=== PATIENT | male | born 1935 | race Caucasian/White ===

== ENCOUNTER 2017-01-06 18:19 | Outpatient (CLI) | payer OTHER ==
[2017-01-06 22:13] VITALS: BMI 29.7
== END 2017-01-06 18:20 | disposition home or self-care (01) ==
LOC: AMBL 18:19
PROVIDERS: ATTEND Internal Medicine Geriatric Medicine
DX: S09.90XA Unspecified injury of head, initial encounter (principal); S01.01XA Laceration without foreign body of scalp, initial encounter; R41.82 Altered mental status, unspecified; I44.0 Atrioventricular block, first degree; R40.2411 Glasgow coma scale score 13-15, in the field [EMT or ambulance]; W19.XXXA Unspecified fall, initial encounter; Z79.01 Long term (current) use of anticoagulants

== ENCOUNTER 2017-01-06 18:28 | Observation (INO) | payer OTHER ==
[2017-01-06] MEDS ORDERED: SODIUM CHLORIDE 1,000 ML IV STA (18:36)
[2017-01-06] MEDS ORDERED: ZOFRAN 4 MG/2 ML IVP STA (19:06)
--- NOTE | 2017-01-06 19:11 | ED.PDOC ---
General ED Provider: Dr. KRIS CAMPBELL Chief Complaint: Fall Stated Complaint: Kaylieeinjudith is an 81 year old female who comes to the after sustaining a fall at home hitting his head does not recall any of the Evens of fall. Sustained a occipital laceration with some bleeding. Denies any other pain. Time Seen by Physician: 18:45 Mode of Arrival: Ambulance Information Source: Patient, Family Exam Limitations: No limitations Primary Care Provider: MICHELE DOWELL Nursing and Triage Documentation Reviewed and Agree: Yes Trauma/Injury Complaint Exam - Head Injury Complaint/Exam Location of Pain: Reports: Scalp Mechanism of Injury: Reports: Trauma Onset/Duration: just prior to arrival Symptoms Are: Still present Initial Severity: Moderate Current Severity: Moderate Character: Reports: Dull Aggravating: Reports: None Alleviating: Reports: None Associated Signs and Symptoms: Reports: Neck pain Loss of Consciousness: Unknown SDH Risk Factors: Present: Male, Elderly Review of Systems - Review Of Systems Constitutional: Reports: No symptoms Eyes: Reports: No symptoms Ears, Nose, Mouth, Throat: Reports: No symptoms Respiratory: Reports: No symptoms Cardiac: Reports: Lightheadedness, Syncope GI: Reports: No symptoms : Reports: No symptoms Musculoskeletal: Reports: Neck pain Skin: Reports: Bruising Neurological: Reports: Anxiety, Other (Memory loss ) Endocrine: Reports: No symptoms Hematologic/Lymphatic: Reports: No symptoms All Other Systems: Reviewed and Negative Past Medical History - Past Medical History Previously Healthy: Yes Endocrine: Reports: None Cardiovascular: Reports: CAD, NM, Hypertension Respiratory: Reports: None Hematological: Reports: None Gastrointestinal: Reports: None Genitourinary: Reports: None Neuro/Psych: Reports: None Musculoskeletal: Reports: None Cancer: Reports: None - Surgical History General Surgical History: Reports: CABG, Other - Family History Family History: Reports: Unknown - Social History Smoking Status: Former smoker Hx Substance Use: No Alcohol Screening: Occasionally Physical Exam - Physical Exam Appearance: Ill-appearing Psychiatric: Anxious Interpretation - Radiology Interpretation Radiology Interpretation By: Radiologist Radiology Results: Negative Exam Interpreted: CT Scan (head, chest, c spine abdomen and pelvis. ) Procedures - Laceration/Wound Repair occipital scalp Wound Description: Irregular, Stellate Wound Length (cm): 3 Wound Width: 0.5 Wound Depth: 0.5 Wound Explored: Clean Wound Irrigated: No Wound Prep: Betadine, Scrub Anesthesia: Lidocaine Wound Margins: Revised Wound Repaired With: Sutures Suture Size and Type: 3.0 Ethlone Number of Sutures: 6 (running ) Layer Closure?: No Sterile Dressing Applied?: Yes Splint Applied?: No Sling Applied?: No Progress: Tolerated well Critical Care Note - Critical Care Note Total Time (mins): 30 Course - Course Hematology/Chemistry: 01/07/17 03:04 01/07/17 03:04 Orders, Labs, Meds: Lab Review 01/06/17 01/06/17 19:24 19:25 WBC 10.51 H RBC 4.35 L Hgb 13.1 L Hct 39.4 L MCV 90.6 MCH 30.1 MCHC 33.2 RDW Coeff of Todd 13.0 Plt Count 213 Immature Gran % (Auto) 0.4 Neut % (Auto) 59.8 Lymph % (Auto) 23.2 [place] % (Auto) 9.0 Eos % (Auto) 6.9 Baso % (Auto) 0.7 Immature Gran # (Auto) 0.0 Neut # 6.3 Lymph # 2.4 [place] # 1.0 Eos # 0.7 Baso # 0.1 PT 26.9 H INR 2.61 Sodium 137 Potassium 4.2 Chloride 99 Carbon Dioxide 29 Anion Gap 13.2 BUN 24 H Creatinine 1.20 H Estimated GFR (MDRD) 58.00 BUN/Creatinine Ratio 20.00 Glucose 100 Calcium 9.6 Total Bilirubin 0.37 AST 14 L ALT 7 L Alkaline Phosphatase 78 Total Creatine Kinase 52 Total Protein 6.9 Albumin 3.9 Globulin 3.0 Albumin/Globulin Ratio 1.30 Orders Category Date Time Status PLACE PATIENT OBSERVATION .TO [facility] (MONITORED BED ADMISSION 01/06/17 20: 42 Active ) ACTIVITY .Early Mobilization for VTE Prevention CARE 01/06/17 20:44 Completed INCISION/WOUND CARE DAILY CARE 01/06/17 20:42 Active INTAKE & OUTPUT Q8HR CARE 01/06/17 20:42 Completed TELEMETRY MONITORING TELE CARE 01/06/17 20:43 Active VITAL SIGNS Q4HR CARE 01/06/17 20:43 Completed CARDIAC DIET DIETARY 01/06/17 Breakfast Ordered BASIC METABOLIC PANEL DAILY@0600 LAB 01/07/17 03:04 Completed BASIC METABOLIC PANEL DAILY@0600 LAB 01/08/17 06:00 Ordered BASIC METABOLIC PANEL DAILY@0600 LAB 01/09/17 06:00 Ordered BASIC METABOLIC PANEL DAILY@0600 LAB 01/10/17 06:00 Ordered BASIC METABOLIC PANEL DAILY@0600 LAB 01/11/17 06:00 Ordered BASIC METABOLIC PANEL DAILY@0600 LAB 01/12/17 06:00 Ordered BASIC METABOLIC PANEL DAILY@0600 LAB 01/13/17 06:00 Ordered BASIC METABOLIC PANEL DAILY@0600 LAB 01/14/17 06:00 Ordered BASIC METABOLIC PANEL DAILY@0600 LAB 01/15/17 06:00 Ordered BASIC METABOLIC PANEL DAILY@0600 LAB 01/16/17 06:00 Ordered BASIC METABOLIC PANEL DAILY@0600 LAB 01/17/17 06:00 Ordered BASIC METABOLIC PANEL DAILY@0600 LAB 01/18/17 06:00 Ordered BASIC METABOLIC PANEL DAILY@0600 LAB 01/19/17 06:00 Ordered BASIC METABOLIC PANEL DAILY@0600 LAB 01/20/17 06:00 Ordered BASIC METABOLIC PANEL DAILY@0600 LAB 01/21/17 06:00 Ordered BASIC METABOLIC PANEL DAILY@0600 LAB 01/22/17 06:00 Ordered BASIC METABOLIC PANEL DAILY@0600 LAB 01/23/17 06:00 Ordered BASIC METABOLIC PANEL DAILY@0600 LAB 01/24/17 06:00 Ordered BASIC METABOLIC PANEL DAILY@0600 LAB 01/25/17 06:00 Ordered BASIC METABOLIC PANEL DAILY@0600 LAB 01/26/17 06:00 Ordered CBC W/ AUTO DIFF DAILY@06 LAB 01/07/17 03:04 Completed CBC W/ AUTO DIFF DAILY@06 LAB 01/08/17 06:00 Ordered CBC W/ AUTO DIFF DAILY@0600 LAB 01/09/17 06:00 Ordered CBC W/ AUTO DIFF DAILY@06 LAB 01/10/17 06:00 Ordered CBC W/ AUTO DIFF DAILY@06 LAB 01/11/17 06:00 Ordered CBC W/ AUTO DIFF DAILY@0600 LAB 01/12/17 06:00 Ordered CBC W/ AUTO DIFF DAILY@0600 LAB 01/13/17 06:00 Ordered CBC W/ AUTO DIFF DAILY@0600 LAB 01/14/17 06:00 Ordered CBC W/ AUTO DIFF DAILY@0600 LAB 01/15/17 06:00 Ordered CBC W/ AUTO DIFF DAILY@0600 LAB 01/16/17 06:00 Ordered CBC W/ AUTO DIFF DAILY@0600 LAB 01/17/17 06:00 Ordered CBC W/ AUTO DIFF DAILY@0600 LAB 01/18/17 06:00 Ordered CBC W/ AUTO DIFF DAILY@0600 LAB 01/19/17 06:00 Ordered CBC W/ AUTO DIFF DAILY@0600 LAB 01/20/17 06:00 Ordered CBC W/ AUTO DIFF DAILY@0600 LAB 01/21/17 06:00 Ordered CBC W/ AUTO DIFF DAILY@0600 LAB 01/22/17 06:00 Ordered CBC W/ AUTO DIFF DAILY@0600 LAB 01/23/17 06:00 Ordered CBC W/ AUTO DIFF DAILY@0600 LAB 01/24/17 06:00 Ordered CBC W/ AUTO DIFF DAILY@0600 LAB 01/25/17 06:00 Ordered CBC W/ AUTO DIFF DAILY@0600 LAB 01/26/17 06:00 Ordered CBC W/ AUTO DIFF Stat LAB 01/06/17 19:24 Completed COMPREHENSIVE METABOLIC PANEL Stat LAB 01/06/17 19:24 Completed CREATINE KINASE Q8H LAB 01/07/17 03:04 Completed CREATINE KINASE Q8H LAB 01/07/17 11:00 Ordered CREATINE KINASE Stat LAB 01/06/17 19:24 Completed PT WITH INR Stat LAB 01/06/17 19:25 Completed TROPONIN I Q8H LAB 01/07/17 03:04 Completed TROPONIN I Q8H LAB 01/07/17 11:00 Ordered Diphth,Pertuss(Acell),Tet Vac [Boostrix] MEDS 01/06/17 19:48 Discontinued 0.5 ml IM .ONCE ONE Lidocaine HCl/Pf [Lidocaine 1 % Amp 5 ml (Sutures)] MEDS 01/06/17 19:53 Discontinued 5 ml .ROUTE .STK-MED ONE Lidocaine HCl/Pf [Lidocaine 1 % Amp 5 ml (Sutures)] MEDS 01/06/17 19:48 Discontinued 5 ml SQ ONCE STA Morphine Sulfate [Morphine 2 mg/ml Syringe] MEDS 01/06/17 20:42 Discontinued 2 mg IVP Q4H PRN Ondansetron HCl/Pf [Zofran 4 mg/2 ml] MEDS 01/06/17 19:06 Discontinued 4 mg IVP ONCE STA Ondansetron HCl/Pf [Zofran 4 mg/2 ml] MEDS 01/06/17 20:42 Active 4 mg IVP Q6H PRN Potassium Chloride in 0.9%NaCl [Sodium Chloride 0.9%- MEDS 01/06/17 21:00 Active KCl 20 Meq] 1,000 ml IV 125 mls/hr Sodium Chloride 0.9% [Sodium Chloride] 1,000 ml MEDS 01/06/17 18:36 Discontinued IV BOLUS RESUSCITATION STATUS Routine OTHERS 01/06/17 20:[address] ABD/PEL WO RENAL STONE PROT Stat RADS 01/06/17 18:[address] CERVICAL SPINE W/O CONTRAST Stat RADS 01/06/17 18:[address] CHEST W/O CONTRAST Stat RADS 01/06/17 18:[address] HEAD W/O CONTRAST Stat RADS 01/06/17 18:35 Completed PT CONSULT Routine THERAPIES 01/06/17 Ordered Medications Generic Name Dose Route Start Last Admin Trade Name Freq PRN Reason Stop Dose Admin Potassium Chloride/Sodium Chloride 1,000 mls @ 125 mls/hr 01/06/17 21:00 07:53 Sodium Chloride 0.9%-Kcl 20 Meq IV 125 mls/hr .Q8H SHANITA Administration Levothyroxine Sodium 75 mcg 01/08/17 06:30 Synthroid PO QDAC [facility] Meclizine HCl 25 mg 01/06/17 22:49 Antivert PO DAILY PRN Dizziness Non-Formulary Medication 100 mg 01/07/17 09:00 Losartan Potassium [Cozaar] PO DAILY [facility] Non-Formulary Medication 1 each 01/07/17 09:00 Vit C/E/Zn/Coppr/Lutein/Zeaxan [Preservision Areds 2 Softgel] PO DAILY [facility] Ondansetron HCl 4 mg 01/06/17 20:42 Zofran 4 Mg/2 Ml IVP Q6H PRN Nausea / Vomiting Tamsulosin HCl 0.4 mg 01/07/17 09:00 Flomax PO DAILY SHANITA Discontinued Medications Generic Name Dose Route Start Last Admin Trade Name Freq PRN Reason Stop Dose Admin Acetaminophen 1,000 mg 01/06/17 21:09 Tylenol PO Q6H PRN pain and fever Aspirin 81 mg 01/07/17 08:00 Aspirin Ec PO DAILYWM [facility] Colesevelam HCl 1,250 mg 01/07/17 09:00 Welchol PO BID SHANITA Diphtheria/Pertussis/Tetanus Vacc 0.5 ml 01/06/17 19:48 01/06/17 19:57 Boostrix IM 01/06/17 19:49 0.5 ml .ONCE ONE Administration Guaifenesin ml 01/06/17 21:09 Robitussin Sugar-Free PO Q4-6H PRN cough Sodium Chloride 1,000 mls @ 1,000 mls/hr 01/06/17 18:36 01/06/17 19:29 Sodium Chloride IV 01/06/17 19:35 1,000 mls/hr BOLUS STA Administration Lidocaine HCl 5 ml 01/06/17 19:48 01/06/17 19:58 Lidocaine 1 % Amp 5 Ml (Sutures) SQ 01/06/17 19:49 5 ml ONCE STA Administration Morphine Sulfate 2 mg 01/06/17 20:42 Morphine 2 Mg/Ml Syringe IVP Q4H PRN Severe Pain Non-Formulary Medication 75 mcg 01/07/17 09:00 Levothyroxine Sodium [Tirosint] PO DAILY SHANITA Non-Formulary Medication 50 mg 01/07/17 09:00 Metoprolol Tartrate [Metoprolol Tartrate] PO BID SHANITA Non-Formulary Medication 4 mg 01/07/17 09:00 Warfarin Sodium [Coumadin] PO DAILY SHANITA Non-Formulary Medication 75 mcg 01/07/17 06:30 01/07/17 05:53 Levothyroxine Sodium [Tirosint] PO 75 mcg QDAC SHANITA Administration Ondansetron HCl 4 mg 01/06/17 19:06 01/06/17 19:28 Zofran 4 Mg/2 Ml IVP 01/06/17 19:07 4 mg ONCE STA Administration Saccharomyces Boulardii 250 mg 01/07/17 09:00 Florastor PO BID SHANITA Simvastatin mg 01/07/17 09:00 Zocor PO DAILY SHANITA Tramadol HCl 50 mg 01/06/17 21:09 Ultram PO Q4-6H PRN moderate pain Vital Signs: Temp Pulse Resp BP Pulse Ox 01/06/17 20:40 68 20 164/80 H 95 01/06/17 19:20 97 F L 67 20 168/80 H 5 L Departure - Departure Time of Disposition: 21:20 Disposition: PLACED OBSERVATION Discharge Problem: Falls, Dizziness, Weakness Laceration of head Qualifiers: Encounter type: initial encounter Location of open wound of head: scalp Foreign body presence: without foreign body Qualifier Code: (S01.01XA) Laceration without foreign body of scalp, initial encounter Condition: Stable Pt referred to PMD for follow-up: No (admitted ) Allergies/Adverse Reactions: Allergies TAPE Adverse Reaction (Uncoded 04/03/14 16:55) Home Medications: Ambulatory Orders Acetaminophen [Tylenol] 1,000 mg PO Q6H PRN 04/03/14 Aspirin [Aspirin EC] 81 mg PO DAILYWM 04/03/14 Colesevelam HCl [Welchol] 1,250 mg PO BID 04/03/14 Levothyroxine Sodium [Tirosint] 75 mcg PO DAILY 04/03/14 Losartan Potassium [Cozaar] 100 mg PO DAILY 04/03/14 Metoprolol Tartrate 50 mg PO BID 04/03/14 Tramadol HCl [Ultram] 50 mg PO Q4-6H PRN 04/03/14 Vit C/E/Zn/Coppr/Lutein/Zeaxan [Preservision Areds 2 Softgel] 1 each PO DAILY Warfarin Sodium [Coumadin] 4 mg PO DAILY 04/03/14 Saccharomyces Boulardii [Florastor] 250 mg PO BID #60 capsule 04/07/14 Guaifenesin 200 mg PO Q4-6H PRN 11/18/15 Simvastatin 1 tab PO DAILY 11/18/15 Tamsulosin HCl [Flomax] 1 tab PO DAILY 11/18/15 Bumetanide 1 mg PO EVERY OTHER DAY 01/07/17 Dimenhydrinate 50 mg PO DAILY PRN 01/07/17 Furosemide [Lasix] 20 mg PO DAILY 01/07/17 Potassium Chloride [K-Dur] 10 meq PO DAILY 01/07/17
[2017-01-06 19:27] LABS: BASOPHILS # (AUTO) 0.1 K/uL (0-0.2); BASOPHILS % (AUTO) 0.7 % (0.0-3.0); EOSINOPHILS # (AUTO) 0.7 K/ul (0.0-0.7); EOSINOPHILS % (AUTO) 6.9 % (0.0-7.0); HEMATOCRIT 39.4 % (42.0-52.0); HEMOGLOBIN 13.1 g/dl (14.0-18.0); IMMATURE GRANULOCYTE % (AUTO) 0.4 % (0.0-5.0); LYMPHOCYTES # (AUTO) 2.4 K/uL (0.60-3.4); LYMPHOCYTES % (AUTO) 23.2 (10.0-50.0); MEAN CORPUSCULAR HEMOGLOBIN 30.1 pg (27.0-31.0); MEAN CORPUSCULAR HGB CONC 33.2 (31.8-35.4); MEAN CORPUSCULAR VOLUME 90.6 fl (80.0-94.0); NEUTROPHILS # (AUTO) 6.3 K/ul (2.0-6.9); NEUTROPHILS % (AUTO) 59.8; PLATELET COUNT 213 10^3/uL (140-440); RED BLOOD COUNT 4.35 10^6/ul (4.70-6.10); WHITE BLOOD COUNT 10.51 K/ul (4.2-10.2)
--- NOTE | 2017-01-06 19:27 | CT ---
EXAM: CT of the head without contrast. HISTORY: Fall with head injury, with loss of consciousness. COMPARISON: 04/03/2014. TECHNIQUE: Noncontrast CT of the head. FINDINGS: No intracranial hemorrhage or mass effect is identified. There is moderate prominence of sulci. The re is mild prominence of the ventricles. Moderate bicerebral white matter hypodensities are again se en. Left thalamic, left basal ganglial/internal capsule,and right cam radiata remore lacunar in farcts are again seen. No large area of huang white matter differentiation loss is seen to suggest an acute infarct. Intracranial calcified atherosclerotic plaque is seen. There is right posterior scalp soft tissue swelling and subcutaneous gas. The calvarium is intact. There is opacification of the visualized portion of the left maxillary sinus. IMPRESSION: No evidence of an acute intracranial process. Right posterior scalp soft tissue swelling and subcutaneous gas. Extensive chronic small vessel ischemic changes. Remote bilateral lacunar infarcts. Atrophy. Opacification of the left maxillary sinus.
--- NOTE | 2017-01-06 19:27 | CT ---
EXAM: CT scan cervical spine HISTORY: Fall COMPARISON: None. FINDINGS: Contiguous axial images obtained through the cervical spine utilizing 2-mm collimation. Sagittal and coronal reconstructions were imaged and reviewed.. There is loss of the normal cervica l lordosis suggesting paraspinal muscle spasm. The vertebral bodies are normal in height and alignm ent. Changes consistent with [facility] are noted at C3 through C7. There is multilevel degenerative dis c disease with multilevel central canal foraminal stenosis. Facet joints are intact. IMPRESSION: Loss normal cervical lordosis suggesting paraspinal muscle spasm. Findings compatible with [facility]. Multilevel central canal and foraminal stenosis.
--- NOTE | 2017-01-06 19:32 | CT ---
EXAM: CT abdomen pelvis without intravenous contrast 01/06/2017. Sagittal and coronal reformatted images obtained HISTORY: Fall. Head injury COMPARISON: 11/18/2015 FINDINGS: Bibasilar atelectasis and/or scarring. The liver shows no acute process. The adrenal gl ands and kidneys show no acute abnormality. The spleen and pancreas show no acute abnormality. There is no bowel obstruction. Aneurysmal dilatation of the infrarenal abdominal aorta. On image 80 this measures 4.2 x 3.8 cm diameter. Unremarkable urinary bladder. No free air or free fluid. There is colonic diverticulosis. No evid ence of diverticulitis. Normal appendix. No acute osseous abnormality. IMPRESSION: 1. Bibasilar atelectasis and/or scarring. 2. No urinary or bowel obstruction and normal appendix. 3. Atherosclerotic vascular disease 4. Aneurysmal dilatation of the infrarenal abdominal aorta. 5. Diverticulosis without diverticulitis. 6. No free air or free fluid. No acute inflammatory or post-traumatic process identified within th e limitation of a noncontrast enhanced examination.
--- NOTE | 2017-01-06 19:32 | CT ---
EXAM: Noncontrast CT of the chest HISTORY: Fall COMPARISON: 11/15/2015 chest x-ray TECHNIQUE: Noncontrast CT of the chest FINDINGS: They are patient motion artifacts. No pneumothorax or pleural effusion is seen. No focal consolidat ion is seen. There is scattered areas of mild atelectasis bilaterally. Evaluation of the mediastinal structures is suboptimal without IV contrast. The heart is borderline enlarged. There is calcification of the mitral valve annulus. Atherosclerotic calcifications are seen including the coronary arteries. There are operative changes of CABG. There is focal ectasia of the aortic arch measuring 3.3 cm. No mediastinal adenopathy is seen. There are degenerative changes of the thoracic spine compatible with DISH. There is severe degenerat braydon changes of the right glenohumeral joint with numerous joint bodies. IMPRESSION: No acute cardiopulmonary findings. Scattered areas of mild atelectasis. Extensive atherosclerosis including coronary arteries. 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 Borderline cardiomegaly. Noncontrast exam. Other chronic and incidental findings as detailed above.
[2017-01-06] MEDS ORDERED: LIDOCAINE 1 % AMP 5 ML (SUTURES) SQ STA (19:48)
[2017-01-06] MEDS ORDERED: BOOSTRIX IM ONE (19:48)
[2017-01-06 19:50] LABS: ALBUMIN 3.9 g/dL (3.4-5.0); ALBUMIN/GLOBULIN RATIO 1.3; ANION GAP 13.2; BILIRUBIN,TOTAL 0.37 mg/dL (0.00-1.20); CALCIUM 9.6 mg/dL (8.2-10.2); CREATININE 1.2 mg/dL (0.60-1.10); POTASSIUM 4.2 mmol/L (3.5-5.1); TOTAL PROTEIN 6.9 g/dL (5.8-8.1)
[2017-01-06] MEDS ORDERED: LIDOCAINE 1 % AMP 5 ML (SUTURES) ONE (19:53)
[2017-01-06] MEDS ORDERED: MORPHINE 2 MG/ML SYRINGE IVP PRN (20:42)
[2017-01-06] MEDS ORDERED: ZOFRAN 4 MG/2 ML IVP PRN (20:42)
[2017-01-06 20:57] LABS: PROTHROMBIN TIME 26.9 SEC (9.3-11.0)
[2017-01-06] MEDS ORDERED: ULTRAM PO PRN (21:09)
[2017-01-06] MEDS ORDERED: ROBITUSSIN SUGAR-FREE PO PRN (21:09)
[2017-01-06] MEDS ORDERED: TYLENOL PO PRN (21:09)
[2017-01-06 22:13] VITALS: BMI 29.7
[2017-01-06] MEDS ORDERED: ANTIVERT PO PRN (22:49)
[2017-01-07] MEDS: SODIUM CHLORIDE 0.9%-KCL 20 MEQ 1,000 ML IV SCH ×2 (00:07→07:53)
[2017-01-07 03:19] LABS: BASOPHILS # (AUTO) 0.1 K/uL (0-0.2); BASOPHILS % (AUTO) 0.4 % (0.0-3.0); EOSINOPHILS # (AUTO) 0.1 K/ul (0.0-0.7); EOSINOPHILS % (AUTO) 0.6 % (0.0-7.0); HEMATOCRIT 36.7 % (42.0-52.0); HEMOGLOBIN 12.6 g/dl (14.0-18.0); IMMATURE GRANULOCYTE % (AUTO) 0.3 % (0.0-5.0); LYMPHOCYTES # (AUTO) 1.6 K/uL (0.60-3.4); LYMPHOCYTES % (AUTO) 13.9 (10.0-50.0); MEAN CORPUSCULAR HEMOGLOBIN 30.8 pg (27.0-31.0); MEAN CORPUSCULAR HGB CONC 34.3 (31.8-35.4); MEAN CORPUSCULAR VOLUME 89.7 fl (80.0-94.0); MONOCYTES % (AUTO) 8.4 (0-10); NEUTROPHILS # (AUTO) 8.9 K/ul (2.0-6.9); NEUTROPHILS % (AUTO) 76.4; PLATELET COUNT 204 10^3/uL (140-440); RED BLOOD COUNT 4.09 10^6/ul (4.70-6.10); WHITE BLOOD COUNT 11.69 K/ul (4.2-10.2)
[2017-01-07 03:22] LABS: ANION GAP 12.5; BUN/CREATININE RATIO 20.4; CALCIUM 9.1 mg/dL (8.2-10.2); CREATININE 0.98 mg/dL (0.60-1.10); POTASSIUM 4.5 mmol/L (3.5-5.1)
[2017-01-07 03:31] LABS: TROPONIN I 0.016 ng/ml (0.0000-0.4000)
[2017-01-07] MEDS ORDERED: NON-FORMULARY MEDICATION (Levothyroxine Sodium [Tirosint] 75 MCG) PO SCH ×44 (06:30→09:00)
[2017-01-07] MEDS ORDERED: ASPIRIN EC PO SCH (08:00)
[2017-01-07] MEDS ORDERED: NON-FORMULARY MEDICATION (Losartan Potassium [Cozaar] 100 MG) PO SCH ×22 (09:00)
[2017-01-07] MEDS ORDERED: POTASSIUM CHLORIDE 10 MEQ PO SCH (09:00)
[2017-01-07] MEDS ORDERED: ANTIVERT PO SCH (09:00)
[2017-01-07] MEDS ORDERED: WELCHOL PO SCH (09:00)
[2017-01-07] MEDS ORDERED: FLOMAX PO SCH (09:00)
[2017-01-07] MEDS ORDERED: ZOCOR PO SCH (09:00)
[2017-01-07] MEDS ORDERED: FLORASTOR PO SCH (09:00)
[2017-01-07] MEDS ORDERED: FUROSEMIDE 20 MG PO SCH (09:00)
[2017-01-07] MEDS ORDERED: NON-FORMULARY MEDICATION (Metoprolol Tartrate [Metoprolol Tartrate] 50 MG) PO SCH (09:00)
[2017-01-07] MEDS ORDERED: NON-FORMULARY MEDICATION (Warfarin Sodium [Coumadin] 4 MG) PO SCH ×22 (09:00)
--- NOTE | 2017-01-07 11:57 | CT ---
Exam: CT brain contrast History: Dizziness Technique: [address] of the brain following intravenous contrast FINDINGS: Compared with 01/06/2017. Again, generalized involutional atrophy, moderate. Again, chr onic microvascular changes white matter tracts, severe. No enhancing masses or abnormal draining ve ins. Atherosclerotic vascular calcifications are present. Right-sided scalp swelling again noted. Dural venous sinuses enhance as expected. Impression: 1. No acute intracranial abnormality. No change from 01/06/2017.
[2017-01-07 14:44] VITALS: BP 127/67; TEMP 97.5
[2017-01-08] MEDS ORDERED: LASIX TAB PO SCH (06:30)
[2017-01-08] MEDS ORDERED: SYNTHROID PO SCH (06:30)
--- NOTE | 2017-01-10 09:35 | PN ---
DATE OF SERVICE: 01/06/17 SUBJECTIVE: This is an 81-year-old male who came to the emergency room after sustaining a fall. He says he tripped and fell while getting out of the car. He does not recall what happened. He had a laceration to the back of the head. He came to the emergency room for further evaluation by the . The patient is on the blood thinner Coumadin. PT/INR was within normal range. BUN was slightly elevated. CT of the head did not show any acute bleed. CT chest is negative other than focal aortic arch ectasia measuring 3.3, borderline cardiomegaly. CT abdomen and pelvis reveals aneursymal dilation, diverticulosis, no free air. At that time, the patient was still dizzy not able to walk, the patient was admitted for observation. With the head injury and laceration to the skull, Dr. Falcon did suture the back of the head, six sutures. REVIEW OF SYSTEMS: CONSTITUTIONAL: No fever, no chills. HEENT: Head - head injury with laceration to the back of head. ENDOCRINE: No weight gain, no weight loss. CVS: No angina symptoms. No CHF symptoms. No palpitations. No atypical chest pain for CAD. No shortness of breath. No PND, no orthopnea. RESPIRATORY: No cough, no hemoptysis. GI: No nausea, no vomiting. No abdominal pain. : No hematuria. No polyuria. MUSCULOSKELETAL:. No joint swelling. PSYCHIATRIC: Not anxious. No depression. No suicidal thoughts. No homicidal thoughts. SKIN: Intact. Laceration to back of head 3.3 cm. PHYSICAL EXAMINATION: V/S: BP 164/80, respiratory rate 20, heart rate 68, temperature 97.0. Saturation 95%. HEENT: Normocephalic, atraumatic. Mucosa dry, traumatic scalp on back of head. No hematoma. NECK: Supple. No JVD, no carotid bruit. No lymphadenopathy. LUNGS: Clear to auscultation. No rales or rhonchi. HEART: S1, S2 normal. No S3. No murmur, gallop or regurgitation. ABDOMEN: Soft, nontender. Bowel sounds active. No rigidity. No rebound or guarding. No CVA tenderness. EXTREMITIES: No clubbing, cyanosis or pedal edema. MUSCULOSKELETAL: No joint swelling. NEUROLOGIC: Awake, alert, oriented times three. No focal deficit. LYMPHATIC: No lymph nodes palpable. SKIN: Intact. LABS: Hemoglobin 12.6, hematocrit 36.7, platelet count 204, white count 11.69. Sodium 137, potassium 4.5, chloride 102, bicarb 27, BUN 20, creatinine 0.98, glucose 99. PT/INR 2.61. ASSESSMENT: 1. STATUS POST FALL WITH HEAD INJURY 2. LACERATION OF THE SCALP OCCIPITAL AREA 3. HISTORY OF HYPERTENSION 4. DYSLIPIDEMIA 5. HISTORY OF CVA 6. HIATAL HERNIA PLAN: 1. Admit the patient for observation 2. Continue home medications 3. IV fluids 4. Will follow with the patient in daily rounds TIME SPENT: More than 30 minutes MTDWan
--- NOTE | 2017-01-10 09:43 | PN ---
DATE OF SERVICE: 01/07/17 SUBJECTIVE: The patient was admitted for dizziness. The patient says he is feeling a lot better and wants to go home. The patient's is also in the room. Urination is fine. No dizziness but still has some weakness in the lower extremity otherwise no problems. REVIEW OF SYSTEMS: CONSTITUTIONAL: Weakness in the lower extremities. No fever, no chills. HEENT: Normal. ENDOCRINE: No weight gain, no weight loss. CVS: No angina symptoms. No CHF symptoms. No palpitations. No atypical chest pain for CAD. No shortness of breath. No PND, no orthopnea. RESPIRATORY: No cough, no hemoptysis. GI: No nausea, no vomiting. No abdominal pain. : No hematuria. No polyuria. MUSCULOSKELETAL:. No joint swelling. PSYCHIATRIC: Not anxious. No depression. No suicidal thoughts. No homicidal thoughts. SKIN: Intact. Scalp wound. PHYSICAL EXAMINATION: V/S: BP 127/67, respiratory rate 20, heart rate 99, temperature 97.5. HEENT: Normocephalic. Mucosa dry. Scalp area laceration, healthy but still has tenderness. NECK: Supple. No JVD, no carotid bruit. No lymphadenopathy. LUNGS: Clear to auscultation. No rales or rhonchi. HEART: S1, S2 normal. No S3. No murmur, gallop or regurgitation. ABDOMEN: Soft, nontender. Bowel sounds active. No rigidity. No rebound or guarding. No CVA tenderness. EXTREMITIES: No clubbing, cyanosis or pedal edema. MUSCULOSKELETAL: No joint swelling. NEUROLOGIC: Awake, alert, oriented times three. No focal deficit. LYMPHATIC: No lymph nodes palpable. SKIN: Intact. I personally made the patient walk in the room, was needing minimal assistance. Per the this is normal for him. He usually walks with a walker or a cane. LABS: Sodium 137, potassium 4.5, chloride 102, bicarb 27, BUN 20, creatinine 0.98. White count 11.69, hemoglobin 12.6, hematocrit 36.7, platelet count 204. ASSESSMENT: 1. STATUS POST FALL WITH HEAD LACERATION 2. DIZZINESS WHICH IS BETTER 3. HYPERTENSION 4. DYSLIPIDEMIA 5. HISTORY OF BPH 6. HISTORY OF CVA 7. HIATAL HERNIA 8. GERD PLAN: 1. Recheck CT scan; if it is normal possible discharge 2. Fall risk and fall precautions discussed 3. Will stop Flomax which can also make the dizziness worse which is discussed with the patient's and agrees with the plan as the patient is reluctant to stay at the hospital. TIME SPENT: More than 30 minutes MTDD
--- NOTE | 2017-01-11 13:16 | SSS ---
DATE OF SERVICE: 01/07/17 REASON FOR CONSULTATION/ADMISSION/HISTORY OF PRESENT ILLNESS: This is an 81-year-old male who came to the emergency room after sustaining a fall. He says he tripped and fell while getting out of the car. He does not recall what happened. He had a laceration to the back of the head. He came to the emergency room for further evaluation by the . The patient is on the blood thinner Coumadin. PT/INR was within normal range. BUN was slightly elevated. CT of the head did not show any acute bleed. CT chest is negative other than focal aortic arch ectasia measuring 3.3, borderline cardiomegaly. CT abdomen and pelvis reveals aneurysmal dilation, diverticulosis, no free air. At that time, the patient was still dizzy not able to walk, the patient was admitted for observation. With the head injury and laceration to the skull, Dr. Falcon did suture the back of the head, six sutures. REVIEW OF SYSTEMS: CONSTITUTIONAL: No night sweats. No fatigue, malaise, lethargy. No fever or chills. HEENT: Eyes: No visual changes. No eye pain. No eye discharge. ENT: No runny nose. No epistaxis. No sinus pain. No sore throat. No odynophagia. No ear pain. No congestion. Head: head injury with laceration to the back of head. RESPIRATORY: No cough, no congestion. No hemoptysis. CARDIOVASCULAR: No angina symptoms. No CHF symptoms. No atypical chest pain for CAD. No palpitations. No shortness of breath. GASTROINTESTINAL: No abdominal pain. No nausea or vomiting. No diarrhea or constipation. No hematemesis. No hematochezia. GENITOURINARY: No urgency. No frequency. No dysuria. No hematuria. No obstructive symptoms. No discharge. No pain. No significant abnormal bleeding. MUSCULOSKELETAL: No musculoskeletal pain. No joint swelling. NEUROLOGICAL: Awake, alert, oriented to time, place and person. No headache. No neck pain. No syncope. No seizures. No dizziness. PSYCHIATRIC: Not anxious. No depression. No suicidal thoughts. No homicidal thoughts. SKIN: No rash. Laceration to back of head 3.3cm. ENDOCRINE: No unexplained weight loss. No weight gain. HEMATOLOGIC/LYMPHATIC: No anemia. No purpura. No petechiae. No prolonged or excessive bleeding. No palpable lymph nodes. PAST HISTORY: Hypertension Coronary artery disease, 1988 Bypass surgery, 1988 Dyslipidemia Hypertension CVA Hiatal hernia, surgically repaired Enlarged prostate Cataract surgery PERSONAL/FAMILY HISTORY/SOCIAL HISTORY: The patient is and lives with the family. Family history is significant for the heart problems. PHYSICAL EXAMINATION: VITAL SIGNS: Blood pressure 127/67, respiratory rate 20, heart rate 99 and temperature 97.5 and saturation 94% on the room air. HEENT: Head normocephalic, atraumatic. Scalp area laceration with the sutures in place. Eyes: Extraocular muscles are intact. Pupils are equal, round and reactive to light and accommodation. Ears: No lesions. Nose appeared normal. Throat: No exudate or erythema. Mucosa dry. NECK: Supple. No JVD, no carotid bruit. No lymphadenopathy or thyromegaly. LUNGS: Clear to auscultation. Percussion note normal. Chest symmetrical. HEART: S1, S2, no S3. No murmurs. No cyanosis or clubbing. No ascites. Pulses: Dorsalis pedis and posterior tibial pulses +1 to +2 both sides. ABDOMEN: Soft. Nontender. Bowel sounds active. No CVA tenderness. No mass felt. EXTREMITIES: No edema. Full range of motion of all extremities, equal. NEUROLOGIC: No focal deficit. Cranial nerves II through XII are grossly intact. No headache, no double vision or headache. SKIN: Not dry. Intact. Turgor - normal. LYMPHATIC: No palpable lymph nodes/no lymphedema. MUSCULOSKELETAL: Normal joints with no swelling. Muscle tone is normal. ALLERGIES: Tape MEDICATIONS: Coumadin Vitamins Tylenol Aspirin Welchol Cozaar Ultram Metoprolol Tirosint Florastor Flomax Simvastatin Potassium Lasix Bumetanide Dimenhydrinate for the cough as needed. LABS/EKG'S/X-RAY/ECHO/ABG: WBC 11.69, hgb 12.6, hct 204, sodium 137, potassium 4.5, chloride 102, bicarb 27 , BUN 20 and creatinine 0.98. PROGRESS NOTES: The patient was admitted to the hospital and started on the IV fluids. BUN and creatinine got better. Gradually started get up and walking. CT scan was repeated which did not show any bleeding. At that time discharge plan was made. DIAGNOSES: 1. Status post fall with head injury laceration and 6 sutures 2. Dizziness has improved 3. BPH 4. Coronary artery disease 5. Hiatal hernia repair 6. Cataract surgery 7. Hypertension 8. Dyslipidemia 9. Chronic kidney disease 10. Anemia RECOMMENDATIONS/PLAN: 1. Discharge the patient home 2. Antivert 25mg PO three times a day 3. Increase hydration 4. Fall precautions; please use the walker or the cane 5. The patient wants to do physical therapy as outpatient. TIME SPENT: More than 70 minutes. MTDD
== END 2017-01-07 16:34 | disposition home or self-care (01) ==
LOC: ED 18:28 → MEDSURG B 20:50
PROVIDERS: ADMIT Emergency Medicine; ATTEND Emergency Medicine
DX: S01.01XA Laceration without foreign body of scalp, initial encounter (principal); R41.3 Other amnesia; R42 Dizziness and giddiness; I10 Essential (primary) hypertension; I25.2 Old myocardial infarction; I77.819 Aortic ectasia, unspecified site; D64.9 Anemia, unspecified; N18.9 Chronic kidney disease, unspecified; I25.10 Atherosclerotic heart disease of native coronary artery without angina pectoris; N40.0 Benign prostatic hyperplasia without lower urinary tract symptoms; M54.2 Cervicalgia; E78.5 Hyperlipidemia, unspecified; W18.09XA Striking against other object with subsequent fall, initial encounter; Y92.008 Other place in unspecified non-institutional (private) residence as the place of occurrence of the external cause; Z79.01 Long term (current) use of anticoagulants; Z79.899 Other long term (current) drug therapy; Z95.1 Presence of aortocoronary bypass graft; Z87.891 Personal history of nicotine dependence
CPT/HCPCS: 36415; 74176; 80048; 80053; 82550; 84484; 85025; 85610; 96361; 96374; 99283

== ENCOUNTER 2017-03-29 20:33 | Outpatient (CLI) | END 2017-03-29 20:34 | LOC: AMBL 20:33 | PROVIDERS: ATTEND Emergency Medicine | DX: M25.512 Pain in left shoulder (principal); R22.32 Localized swelling, mass and lump, left upper limb; W01.0XXA Fall on same level from slipping, tripping and stumbling without subsequent striking against object, initial encounter ==

== ENCOUNTER 2017-04-05 18:06 | Inpatient (IN) ==
[2017-04-05] MEDS ORDERED: OCEAN NASAL SPRAY NAS PRN (18:29)
[2017-04-05] MEDS ORDERED: ROBITUSSIN SUGAR-FREE PO PRN (18:29)
[2017-04-05 18:47] VITALS: BMI 29.9
[2017-04-05] MEDS ORDERED: ZOCOR PO SCH (21:00)
[2017-04-05] MEDS ORDERED: TACROLIMUS TP SCH (21:00)
[2017-04-05] MEDS ORDERED: NON-FORMULARY MEDICATION (Metoprolol Tartrate [Metoprolol Tartrate] 50 MG) PO SCH (21:00)
[2017-04-05] MEDS ORDERED: WELCHOL PO SCH (21:00)
[2017-04-05] MEDS: LOPRESSOR ONE (21:15)
[2017-04-05] MEDS: FLORASTOR PO SCH (21:17)
[2017-04-06] MEDS ORDERED: HALDOL IM STA (00:29)
[2017-04-06] MEDS ORDERED: ATIVAN IM STA (04:01)
[2017-04-06 04:38] LABS: BASOPHILS % (AUTO) 0.3 % (0.0-3.0); EOSINOPHILS # (AUTO) 0.6 K/ul (0.0-0.7); EOSINOPHILS % (AUTO) 5.5 % (0.0-7.0); HEMATOCRIT 32.2 % (42.0-52.0); HEMOGLOBIN 10.9 g/dl (14.0-18.0); IMMATURE GRANULOCYTE % (AUTO) 0.5 % (0.0-5.0); LYMPHOCYTES # (AUTO) 1.4 K/uL (0.60-3.4); LYMPHOCYTES % (AUTO) 12.3 (10.0-50.0); MEAN CORPUSCULAR HEMOGLOBIN 30.4 pg (27.0-31.0); MEAN CORPUSCULAR HGB CONC 33.9 (31.8-35.4); MEAN CORPUSCULAR VOLUME 89.7 fl (80.0-94.0); MONOCYTES # (AUTO) 1.1 K/uL (0.4-2.0); MONOCYTES % (AUTO) 9.4 (0-10); NEUTROPHILS # (AUTO) 8.1 K/ul (2.0-6.9); PLATELET COUNT 190 10^3/uL (140-440); RED BLOOD COUNT 3.59 10^6/ul (4.70-6.10); WHITE BLOOD COUNT 11.24 K/ul (4.2-10.2)
[2017-04-06 05:09] LABS: ALBUMIN 3.4 g/dL (3.4-5.0); ALBUMIN/GLOBULIN RATIO 1.06; ANION GAP 16.6; BILIRUBIN,TOTAL 1.02 mg/dL (0.00-1.20); BUN/CREATININE RATIO 25.42; CALCIUM 9.7 mg/dL (8.2-10.2); CREATININE 1.18 mg/dL (0.60-1.10); POTASSIUM 3.6 mmol/L (3.5-5.1); TOTAL PROTEIN 6.6 g/dL (5.8-8.1)
[2017-04-06] MEDS ORDERED: NON-FORMULARY MEDICATION (Levothyroxine Sodium [Tirosint] 75 MCG) PO SCH ×22 (09:00)
[2017-04-06] MEDS ORDERED: ATIVAN IM PRN (09:03)
[2017-04-06] MEDS: BUMEX PO SCH (09:29)
[2017-04-06] MEDS: FLOMAX PO SCH (09:29)
[2017-04-06] MEDS: FLORASTOR PO SCH ×2 (09:29→21:26)
[2017-04-06] MEDS: COZAAR PO SCH (09:35)
[2017-04-06 09:36] LABS: PROTHROMBIN TIME 11.9 SEC (9.3-11.0)
[2017-04-06] MEDS: SYNTHROID PO SCH (09:36)
[2017-04-06] MEDS: LOPRESSOR PO SCH ×2 (09:36→17:48)
[2017-04-06] MEDS: TYLENOL PO SCH ×2 (09:37→21:26)
[2017-04-06] MEDS: WELCHOL PO SCH ×3 (09:39→17:49)
[2017-04-06] MEDS: ASPIRIN EC PO SCH (09:42)
--- NOTE | 2017-04-06 11:14 | PCM.PROG ---
Attending Provider: ATTENDING PROVIDER: Dr. MICHELE DOWELL DATE OF SERVICE: 04/06/17 SUBJECTIVE: This 82 year old WHITE/ M was hospitalized 04/05/17. The patient is admitted in swing bed after left clavicle fracture, recent pacemaker placement , left clavicular fracture on 03/30/17. The patient had agitation with features of dementia last night; could be hospital psychosis. Required Haldol and Ativan 1 mg IM which helped. The patient has an ecchymotic area on upper part of chest some from pacemaker placement and clavicular fracture. REVIEW OF SYSTEMS: CONSTITUTIONAL: No night sweats. No fatigue, malaise, lethargy. No fever or chills. HEENT: Eyes: No visual changes. No eye pain. No eye discharge. ENT: No runny nose. No epistaxis. No sinus pain. No odynophagia. No congestion. RESPIRATORY: No cough, no congestion. No hemoptysis. CARDIOVASCULAR: No angina symptoms. No CHF symptoms. No atypical chest pain for CAD. No palpitations. No shortness of breath. GASTROINTESTINAL: No abdominal pain. No nausea or vomiting. No diarrhea or constipation. No hematemesis. No hematochezia. GENITOURINARY: No urgency. No frequency. No dysuria. No hematuria. No obstructive symptoms. No discharge. No pain. No significant abnormal bleeding. MUSCULOSKELETAL: No musculoskeletal pain; no joint swelling. NEUROLOGICAL: Sleeping now. No labored breathing. No headache. No neck pain. No syncope. No seizures. No dizziness. PSYCHIATRIC: Not anxious. No depression. No suicidal thoughts. No homicidal thoughts. SKIN: Ecchymotic area upper part of chest area. ENDOCRINE: No unexplained weight loss. No weight gain. HEMATOLOGIC/LYMPHATIC: No anemia. No purpura. No petechiae. No prolonged or excessive bleeding. No palpable lymph nodes. PHYSICAL EXAMINATION: GENERAL: The patient is sleeping quietly, lying in bed in no distress. VITAL SIGNS: Temperature 96.5 F, Pulse 80, Respiratory Rate 20, BP 141/70, Pulse Ox 94% HEENT: Head normocephalic, atraumatic. Eyes: Extraocular muscles are intact. Pupils are equal, round and reactive to light and accommodation. Ears: No lesions. Nose appeared normal. Throat: No exudate or erythema. NECK: Supple. No JVD, no carotid bruit. No lymphadenopathy or thyromegaly. LUNGS: Clear to auscultation. Percussion note normal. Chest symmetrical. HEART: S1, S2, no S3. No murmurs. No cyanosis or clubbing. No ascites. Pulses: Dorsalis pedis and posterior tibial pulses +1 to +2 both sides. The patient has an ecchymotic area on upper part of chest some from pacemaker placement and clavicular fracture. The patient is supposed to have sling on right upper arm for pacemaker but not cooperative but sleeping quietly. The site for incision for pacemaker is dry, no evidence of infection. Clavicle seems to be in place. ABDOMEN: Soft. Non-tender. Bowel sounds active. No CVA tenderness. No mass felt. EXTREMITIES: No pedal edema. Full range of motion of all extremities, equal. NEUROLOGIC: No focal deficit. Cranial nerves II through XII are grossly intact. No headache, no double vision or headache. SKIN: Not dry. Intact. Turgor-normal. LYMPHATIC: No palpable lymph nodes/no lymphedema. MUSCULOSKELETAL: Normal joints with no swelling. Muscle tone is normal. LAB REVIEW: 04/06/17 04:20 04/06/17 04:20 04/06/17 04:20: WBC 11.24 H, RBC 3.59 L, Hgb 10.9 L, Hct 32.2 L, MCV 89.7, MCH 30.4, MCHC 33.9, RDW Coeff of Todd 13.2, Plt Count 190, Immature Gran % (Auto) 0.5, Neut % (Auto) 72.0, Lymph % (Auto) 12.3, Sutter % (Auto) 9.4, Eos % (Auto) 5.5, Baso % (Auto) 0.3, Immature Gran # (Auto) 0.1, Neut # 8.1 H, Lymph # 1.4, Sutter # 1.1, Eos # 0.6, Baso # 0.0, Sodium 138, Potassium 3.6, Chloride 97 L, Carbon Dioxide 28, Anion Gap 16.6, BUN 30 H, Creatinine 1.18 H, Estimated GFR ( MDRD) 59.00, BUN/Creatinine Ratio 25.42, Glucose 96, Calcium 9.7, Total Bilirubin 1.02, AST 19, ALT 9 L, Alkaline Phosphatase 66, Total Protein 6.6, Albumin 3.4, Globulin 3.2, Albumin/Globulin Ratio 1.06 ASSESSMENT: 1. Left clavicular fracture 2. Permanent pacemaker placement 3. Agitation- could be hospital psychosis mixed with early dementia 4. History of CVA 5. Anemia 6. Coronary artery disease 7. Chronic kidney disease PLAN: 1. PT/INR daily 2. EKG 3. Chest x-ray 4. Two Tylenol twice a day for pain 5. Ativan 1 mg IM q.4 to 6hr as needed 6. Case discussed with the patient's son Plan and coordination of the patient's care discussed in the presence of [facility] and nurse. CONDITION: Stable SCRIBED BY: TRACY ROBISON Supervisor Sandblaster scribed while in presence of service performed by Dr. MICHELE DOWELL on 04/06/17 ([id number])
[2017-04-06] MEDS: TACROLIMUS TP SCH ×2 (11:26→21:34)
--- NOTE | 2017-04-06 15:01 | DI ---
EXAM: Chest, one-view HISTORY: Shortness of air, cough COMPARISON: 11/15/2015 TECHNIQUE: Single view chest was performed FINDINGS: Right sided cardiac pacer. Heart is top normal in size. Mediastinal contour unchanged, noting atherosclerosis. Median sternotomy wires. Small left pleural effusion with adjacent atelect asis and/or consolidation. No visible pneumothorax. Probable mild pulmonary vascular congestion. IMPRESSION: 1. Probable mild pulmonary vascular congestion. 2. Small pleural effusion with adjacent atelectasis and/or pneumonia.
[2017-04-06] MEDS: ZOCOR PO SCH (21:26)
[2017-04-07 05:21] LABS: PROTHROMBIN TIME 12.3 SEC (9.3-11.0)
[2017-04-07] MEDS: SYNTHROID PO SCH (05:47)
[2017-04-07] MEDS: BUMEX PO SCH (10:09)
[2017-04-07] MEDS: ASPIRIN EC PO SCH (10:09)
[2017-04-07] MEDS: FLORASTOR PO SCH ×2 (10:10→20:42)
[2017-04-07] MEDS: FLOMAX PO SCH (10:10)
[2017-04-07] MEDS: COZAAR PO SCH (10:10)
[2017-04-07] MEDS: LOPRESSOR PO SCH ×2 (10:11→17:47)
[2017-04-07] MEDS: TYLENOL PO SCH ×2 (10:11→20:41)
[2017-04-07] MEDS: TACROLIMUS TP SCH ×2 (10:12→20:44)
[2017-04-07] MEDS: WELCHOL PO SCH ×2 (10:12→17:46)
--- NOTE | 2017-04-07 12:16 | RS.PTINEVL ---
Subjective - Patient information Date of Evaluation: 04/07/17 Date of Arrival on Unit: 04/05/17 Admitted From:: Facility Transfer ([facility]) Usual Living Arrangement: With Spouse Home Environment: House, Stairs (few) (3), Rail Medical History: CVA/TIA, Arthritis (bilateral knees) Medical History Comments:: [place] 1988, CABG 1988, AAA 2015 Subjective Information/ Patient Comments:: Patient agrees to get up. Reports no pain in either UE. States main area of pain is in the right groin area. Patient is slow to respond and demonstrates some delayed processing. - Level of function Prior to this admission, the patient could do the following:: Independent Selfcare, Independent ADL's, Independent Ambulation (with rolling walker) Current Level of Function: Dependent Current Equipment Used at Home: walker Interventions - Objective Patient Orientation: Person, Place, Time, Situation Observation: Patient presents with scattered bruising throughout the anterior shoulders and clavical regions. Range of Motion - ROM Right Upper Extremity AROM: Moderate limitation (Pacemaker side) Left Upper Extremity AROM: Marked limitation (clavicle fracture) Right Lower Extremity AROM: WFL's Left Lower Extremity AROM: WFL's Muscle Strength - Muscle Strength Comments:: LE strength at least 3/5. Balance - Sitting Balance and Reactions Static Sitting Balance: Fair (+) - Standing Balance and Reactions Static Standing Balance: Fair Functional Mobility - Bed Mobility Scooting: Mod Assist, 2 person assist Supine to Sit: Mod Assist, Max Assist, 2 person assist, Verbal Cues, Tactile Cues Comments:: Patient able to follow instructions. Tries to use bilateral UE to help with scooting and right UE. Head of bed raised to have patient in sitting position and then patient moved legs to the side of the bed. Means pad used to move him to sitting on the EOB. - Transfers Sit to Stand: Mod Assist, 2 person assist, Verbal Cues, Tactile Cues Stand to Sit: Mod Assist, 2 person assist, Verbal Cues, Tactile Cues Stand Pivot Transfers: Mod Assist, 2 person assist, Verbal Cues, Tactile Cues Comments:: Stood at walker to pivot and turn to sit in chair. Patient needs assistance to lower himself down slowly and easily. - Safety Awareness Safety Awareness: Poor Treatment time - Time with patient Total treatment time: 25 (mins) Assessment - Assessment Problem List:: Decreased level of function, Requires training/education, Decreased safety/Risk of falls, Weakness, Pain limits previous level of function Rehab Potential: Good Further Therapy Indicated?: Yes Short Term Goals GOAL #1: supine to sit with mod asst of one. Goal to be met by: 04/12/17 GOAL #2: Sit to stand with min-mod of one. Goal to be met by: 04/11/17 GOAL #3: Pt to amb. with RW 30 feet with min A of one. Goal to be met by: 04/11/17 Retirement Goals GOAL #1: Patient independent in bed mobility. Goal to be met by: 04/21/17 GOAL #2: All transfers independent with good safety. Goal to be met by: 04/21/17 GOAL #3: Pt to amb. w/ RW household distances w/ good safety I. Goal to be met by: 04/21/17 Plan Plan of Care: Therapeutic EX, Neuromuscular Re-Educ, Therapeutic Activity, Self- Care/Home Management Modalities: Cold Pack/Cryotherapy Frequency of Treatment: 1-2 X day, as tolerated Duration of Treatment: 2 Weeks Anticipated Discharge Destination: Home
[2017-04-07 20:15] LABS: ADD URINE MICROSCOPIC YES; BILIRUBIN,URINE Negative (NEGATIVE); KETONES,URINE Negative (NEGATIVE); LEUKOCYTE ESTERASE ,URINE Negative (NEGATIVE); NITRITE,URINE Negative (NEGATIVE); PH,URINE 5.5 (5-9); PROTEIN,URINE Negative (NEGATIVE); URINE, BLOOD Trace-lysed (NEGATIVE)
[2017-04-07] MEDS: ZOCOR PO SCH (20:41)
[2017-04-08 05:12] LABS: PROTHROMBIN TIME 12.4 SEC (9.3-11.0)
[2017-04-08] MEDS: SYNTHROID PO SCH (05:42)
[2017-04-08] MEDS ORDERED: MILK OF MAGNESIA PO STA (08:51)
[2017-04-08] MEDS ORDERED: NON-FORMULARY MEDICATION (Warfarin Sodium [Coumadin] 4 MG) PO SCH ×22 (09:00)
[2017-04-08 09:23] LABS: BASOPHILS # (AUTO) 0.1 K/uL (0-0.2); BASOPHILS % (AUTO) 0.6 % (0.0-3.0); EOSINOPHILS # (AUTO) 0.4 K/ul (0.0-0.7); EOSINOPHILS % (AUTO) 4.3 % (0.0-7.0); HEMOGLOBIN 10.5 g/dl (14.0-18.0); IMMATURE GRANULOCYTE % (AUTO) 0.3 % (0.0-5.0); LYMPHOCYTES # (AUTO) 1.1 K/uL (0.60-3.4); MEAN CORPUSCULAR HEMOGLOBIN 30.3 pg (27.0-31.0); MEAN CORPUSCULAR HGB CONC 33.9 (31.8-35.4); MEAN CORPUSCULAR VOLUME 89.6 fl (80.0-94.0); MONOCYTES # (AUTO) 0.7 K/uL (0.4-2.0); MONOCYTES % (AUTO) 7.7 (0-10); NEUTROPHILS # (AUTO) 6.6 K/ul (2.0-6.9); NEUTROPHILS % (AUTO) 75.1; PLATELET COUNT 208 10^3/uL (140-440); RED BLOOD COUNT 3.46 10^6/ul (4.70-6.10); WHITE BLOOD COUNT 8.81 K/ul (4.2-10.2)
[2017-04-08] MEDS: ASPIRIN EC PO SCH (10:00)
[2017-04-08] MEDS: COZAAR PO SCH (10:01)
[2017-04-08] MEDS: BUMEX PO SCH (10:01)
[2017-04-08] MEDS: FLOMAX PO SCH (10:02)
[2017-04-08] MEDS: FLORASTOR PO SCH ×2 (10:02→20:21)
[2017-04-08 10:03] LABS: ALBUMIN/GLOBULIN RATIO 0.97; ANION GAP 16.4; BILIRUBIN,TOTAL 0.78 mg/dL (0.00-1.20); BUN/CREATININE RATIO 24.54; CALCIUM 9.3 mg/dL (8.2-10.2); CREATININE 1.1 mg/dL (0.60-1.10); POTASSIUM 3.4 mmol/L (3.5-5.1); TOTAL PROTEIN 6.1 g/dL (5.8-8.1)
[2017-04-08] MEDS: TYLENOL PO SCH ×2 (10:03→20:21)
[2017-04-08] MEDS: LOPRESSOR PO SCH ×2 (10:03→17:53)
[2017-04-08] MEDS: WELCHOL PO SCH ×2 (10:04→17:53)
[2017-04-08] MEDS: LOVENOX SUBCUT SCH ×2 (10:06→20:22)
[2017-04-08] MEDS: TACROLIMUS TP SCH ×3 (10:16→20:22)
[2017-04-08] MEDS: TYLENOL PO PRN (15:29)
[2017-04-08] MEDS: COUMADIN PO SCH (17:53)
[2017-04-08] MEDS: ZOCOR PO SCH (20:21)
[2017-04-09 04:31] LABS: BASOPHILS # (AUTO) 0.1 K/uL (0-0.2); BASOPHILS % (AUTO) 0.7 % (0.0-3.0); EOSINOPHILS # (AUTO) 0.5 K/ul (0.0-0.7); EOSINOPHILS % (AUTO) 6.2 % (0.0-7.0); HEMATOCRIT 30.4 % (42.0-52.0); HEMOGLOBIN 10.1 g/dl (14.0-18.0); IMMATURE GRANULOCYTE % (AUTO) 0.5 % (0.0-5.0); LYMPHOCYTES # (AUTO) 1.2 K/uL (0.60-3.4); LYMPHOCYTES % (AUTO) 13.3 (10.0-50.0); MEAN CORPUSCULAR HEMOGLOBIN 29.9 pg (27.0-31.0); MEAN CORPUSCULAR HGB CONC 33.2 (31.8-35.4); MEAN CORPUSCULAR VOLUME 89.9 fl (80.0-94.0); MONOCYTES # (AUTO) 0.9 K/uL (0.4-2.0); NEUTROPHILS % (AUTO) 69.3; PLATELET COUNT 204 10^3/uL (140-440); RED BLOOD COUNT 3.38 10^6/ul (4.70-6.10); WHITE BLOOD COUNT 8.69 K/ul (4.2-10.2)
[2017-04-09 04:41] LABS: PROTHROMBIN TIME 12.1 SEC (9.3-11.0)
[2017-04-09 04:50] LABS: ALBUMIN 2.9 g/dL (3.4-5.0); ANION GAP 13.9; BILIRUBIN,TOTAL 0.77 mg/dL (0.00-1.20); BUN/CREATININE RATIO 21.6; CALCIUM 9.2 mg/dL (8.2-10.2); CREATININE 1.25 mg/dL (0.60-1.10); POTASSIUM 3.9 mmol/L (3.5-5.1); TOTAL PROTEIN 5.8 g/dL (5.8-8.1)
[2017-04-09] MEDS: SYNTHROID PO SCH (05:39)
[2017-04-09] MEDS: ASPIRIN EC PO SCH (09:05)
[2017-04-09] MEDS: TYLENOL PO SCH ×2 (09:05→20:10)
[2017-04-09] MEDS: FLOMAX PO SCH (09:05)
[2017-04-09] MEDS: FLORASTOR PO SCH ×2 (09:05→20:10)
[2017-04-09] MEDS: LOVENOX SUBCUT SCH ×2 (09:06→20:10)
[2017-04-09] MEDS: BUMEX PO SCH (09:06)
[2017-04-09] MEDS: WELCHOL PO SCH ×2 (09:06→17:05)
[2017-04-09] MEDS: COZAAR PO SCH (09:06)
[2017-04-09] MEDS: LOPRESSOR PO SCH ×2 (09:06→17:06)
[2017-04-09] MEDS: TACROLIMUS TP SCH ×2 (09:31→20:11)
[2017-04-09] MEDS: CLOBETASOL PROPIONATE TP SCH (09:53)
--- NOTE | 2017-04-09 13:31 | HP ---
DATE OF SERVICE: 04/05/17 REASON FOR HOSPITALIZATION (SWING BED): Left clavicular fracture and pacemaker placement. The patient has problem with ambulation, has been found to be somewhat confused off and on, could be hospital psychosis. HISTORY OF PRESENT ILLNESS: This 82-year-old white male fell and had left clavicular fracture which is very well aligned, was seen by orthopaedic surgeon and they have elected to treat him conservatively. On further workup, during the hospital stay, the patient was found to have 2nd degree Mobitz type AV block, sick sinus syndrome due to SA node dysfunction. The patient had syncope and collapse. The patient now has pacemaker placed on the right pectoris major muscle. REVIEW OF SYSTEMS: CONSTITUTIONAL: The patient is sleepy at the present time but no distress. No night sweats. No fatigue, malaise, lethargy. No fever or chills. HEENT: Eyes: No visual changes. No eye pain. No eye discharge. ENT: No runny nose. No epistaxis. No sinus pain. No sore throat. No odynophagia. No ear pain. No congestion. RESPIRATORY: No cough, no congestion. No hemoptysis. CARDIOVASCULAR: No angina symptoms. No CHF symptoms. No atypical chest pain for CAD. No palpitations. No shortness of breath. No PND, no orthopnea. GASTROINTESTINAL: Appetite is improving. No abdominal pain. No nausea or vomiting. No diarrhea or constipation. No hematemesis. No hematochezia. GENITOURINARY: No urgency. No frequency. No dysuria. No hematuria. No obstructive symptoms. No discharge. No pain. No significant abnormal bleeding. MUSCULOSKELETAL: No musculoskeletal pain. No joint swelling. No arthritis. NEUROLOGICAL: Mental status: Confused off and on. No headache. No neck pain. No syncope. No seizures. No dizziness. PSYCHIATRIC: The patient has been at times restless.Not anxious. No depression. No suicidal thoughts. No homicidal thoughts. SKIN: No rash. No lesions. No wounds. ENDOCRINE: No unexplained weight loss. No weight gain. HEMATOLOGIC/LYMPHATIC: No anemia. No purpura. No petechiae. No prolonged or excessive bleeding. No palpable lymph nodes. PERSONAL/FAMILY/SOCIAL HISTORY: The patient is , lives with the . Nonsmoker. No alcohol abuse. The patient has several kids that take care of him too. He does all activity of daily living. PAST MEDICAL/SURGICAL PROBLEMS: History of abdominal aortic aneurysm Hypothyroidism DJD spine Hypertension CVA with hemiparesis, right side Dyslipidemia MEDICATIONS: Welchol two tablets twice a day Bumex 1 mg p.o. daily Simvastatin 40 mg p.o. daily Metropolol 50 mg p.o. twice a day Flomax 0.4 daily Cozaar 100 mg p.o. daily Synthroid 75 mcg p.o. daily Nasal spray Antivert Aspirin 81 mg p.o. daily LABS: The patient's hemoglobin on 03/29 was 13.4; on 04/03/17 it was 10.4 with hematocrit of 31. On the day of admission, the patient's hemoglobin was 10.1, hematocrit of 30 at [facility]. 04/06 it is reported as 10.9 with hematocrit of 32. ALLERGIES: NIACIN, TAPE PHYSICAL EXAMINATION: GENERAL: The patient is oriented to time, place and person. VITAL SIGNS: Temperature 97, pulse 80/min, respiratory rate 20, BP 138/78, pulse ox 94% on room air. HEENT: Head normocephalic, atraumatic. Eyes: Extraocular muscles are intact. Pupils are equal, round and reactive to light and accommodation. Ears: No lesions. Nose appeared normal. Throat: No exudate or erythema. NECK: Supple. No JVP, no carotid bruit. No lymphadenopathy or thyromegaly. LUNGS: Decreased breath sounds but clear to auscultation. Percussion note normal. Chest symmetrical. HEART: S1, S2, no S3. No murmurs. The patient has chest wall hematoma involving the upper 1/3 along the pocket of pacemaker on the right. Clavicular fracture created the some subcutaneous collection of blood. No cyanosis or clubbing. No ascites. Pulses: Dorsalis pedis and posterior tibial pulses +1 to +2 both sides. ABDOMEN: Soft. Nontender. Bowel sounds active. No clubbing, no cyanosis. No CVA tenderness. No mass felt. EXTREMITIES: No edema. Full range of motion of all extremities, equal. Moving all his extremities. NEUROLOGIC: No focal deficit. Cranial nerves II through XII are grossly intact. No headache, no double vision or headache. SKIN: Not dry. Intact. Turgor - normal. LYMPHATIC: No palpable lymph nodes/no lymphedema. MUSCULOSKELETAL: Normal joints with no swelling. Muscle tone is normal. ASSESSMENT: 1. CHEST WALL HEMATOMA, UPPER 1/3 COMING FROM CREATING A POCKET FOR PACEMAKER AND ALSO LEFT CLAVICULAR FRACTURE. 2. CLOSED NONDISPLACED FRACTURE OF THE STERNAL END OF THE LEFT CLAVICLE. 3. RECENT PACEMAKER PLACEMENT FROM SICK SINUS SYNDROME AND HAVING SYNCOPAL EPISODE WITH COLLAPSE. 4. CORONARY ARTERY DISEASE 5. AORTIC ANEURYSM 6. CVA WITH LEFT HEMIPARESIS 7. HYPERTENSION PLAN: 1. Daily CBC, CMP 2. The patient is on telemetry 3. The patient needs to be up and about so will do physical therapy for ambulation 4. Continue all the medications as before The patient is somewhat reluctant to put the sling, which needs to be on both arms from the hospital; the patient came with right arm sling to prevent patient from making a lot of movement on the pacemaker site. CONDITION: Stable. I had talked to the patient's sons earlier. The was also present. CONDITION: Stable. TIME SPENT: More than 70 minutes. [facility]
[2017-04-09] MEDS: COUMADIN PO SCH (17:06)
[2017-04-09] MEDS: ZOCOR PO SCH (20:10)
[2017-04-10 04:53] LABS: BASOPHILS % (AUTO) 0.3 % (0.0-3.0); EOSINOPHILS # (AUTO) 0.1 K/ul (0.0-0.7); EOSINOPHILS % (AUTO) 0.7 % (0.0-7.0); HEMATOCRIT 29.5 % (42.0-52.0); HEMOGLOBIN 9.8 g/dl (14.0-18.0); IMMATURE GRANULOCYTE % (AUTO) 0.4 % (0.0-5.0); LYMPHOCYTES # (AUTO) 1.5 K/uL (0.60-3.4); LYMPHOCYTES % (AUTO) 10.8 (10.0-50.0); MEAN CORPUSCULAR HEMOGLOBIN 29.8 pg (27.0-31.0); MEAN CORPUSCULAR HGB CONC 33.2 (31.8-35.4); MEAN CORPUSCULAR VOLUME 89.7 fl (80.0-94.0); MONOCYTES # (AUTO) 0.9 K/uL (0.4-2.0); MONOCYTES % (AUTO) 6.7 (0-10); NEUTROPHILS # (AUTO) 11.1 K/ul (2.0-6.9); NEUTROPHILS % (AUTO) 81.1; PLATELET COUNT 225 10^3/uL (140-440); RED BLOOD COUNT 3.29 10^6/ul (4.70-6.10)
[2017-04-10 05:21] LABS: PROTHROMBIN TIME 12.1 SEC (9.3-11.0)
[2017-04-10 05:34] LABS: ALBUMIN 2.9 g/dL (3.4-5.0); ALBUMIN/GLOBULIN RATIO 0.97; ANION GAP 16.1; BILIRUBIN,TOTAL 0.76 mg/dL (0.00-1.20); BUN/CREATININE RATIO 21.73; CALCIUM 9.2 mg/dL (8.2-10.2); CREATININE 1.38 mg/dL (0.60-1.10); POTASSIUM 4.1 mmol/L (3.5-5.1); TOTAL PROTEIN 5.9 g/dL (5.8-8.1)
[2017-04-10] MEDS: SYNTHROID PO SCH (05:45)
[2017-04-10] MEDS: BUMEX PO SCH (08:40)
[2017-04-10] MEDS: ASPIRIN EC PO SCH (08:40)
[2017-04-10] MEDS: TYLENOL PO SCH ×2 (08:40→21:05)
[2017-04-10] MEDS: FLORASTOR PO SCH ×2 (08:40→21:05)
[2017-04-10] MEDS: FLOMAX PO SCH (08:40)
[2017-04-10] MEDS: WELCHOL PO SCH ×2 (08:40→16:36)
[2017-04-10] MEDS: LOVENOX SUBCUT SCH ×2 (08:41→21:04)
[2017-04-10] MEDS: CLOBETASOL PROPIONATE TP SCH (08:41)
[2017-04-10] MEDS: COZAAR PO SCH (08:41)
[2017-04-10] MEDS: LOPRESSOR PO SCH ×2 (08:41→16:36)
[2017-04-10] MEDS: TACROLIMUS TP SCH ×2 (09:04→21:45)
--- NOTE | 2017-04-10 11:17 | PN ---
DATE OF SERVICE: 04/08/17 SUBJECTIVE: The patient is a 82 year old white male hospitalized in the swing bed with left Clavicle fracture and pacemaker placement done one the same hospitalization at [facility]. The patient's condition has been stable for past couple of day at [facility]. The patient has been agitated but last night slept very well. This morning the patient is oriented to time, place and person and is joking around asking for playing golf etc. REVIEW OF SYSTEMS: CONSTITUTIONAL: No night sweats. No fatigue, malaise, lethargy. No fever or chills. HEENT: Eyes: No visual changes. No eye pain. No eye discharge. ENT: No runny nose. No epistaxis. No sinus pain. No sore throat. No odynophagia. No congestion. RESPIRATORY: No cough, no congestion. No hemoptysis. CARDIOVASCULAR: No angina symptoms. No CHF symptoms. No atypical chest pain for CAD. No palpitations. No shortness of breath. GASTROINTESTINAL: No abdominal pain. No nausea or vomiting. No diarrhea or constipation. No hematemesis. No hematochezia. Appetite has been improving. GENITOURINARY: No urgency. No frequency. No dysuria. No hematuria. No obstructive symptoms. No discharge. No pain. No significant abnormal bleeding. MUSCULOSKELETAL: No musculoskeletal pain; no joint swelling. NEUROLOGICAL: No headache. No neck pain. No syncope. No seizures. No dizziness. PSYCHIATRIC: Not anxious. No depression. No suicidal thoughts. No homicidal thoughts. SKIN: No rash. No lesions. No wounds. ENDOCRINE: No unexplained weight loss. No weight gain. HEMATOLOGIC/LYMPHATIC: No anemia. No purpura. No petechiae. No prolonged or excessive bleeding. No palpable lymph nodes. PHYSICAL EXAMINATION: GENERAL: The patient is oriented to time, place and person. VITAL SIGNS: Temperature 97.6, pulse 84, respiratory rate 15, blood pressure 100/57 and pulse ox 94%. HEENT: Head normocephalic, atraumatic. Eyes: Extraocular muscles are intact. Pupils are equal, round and reactive to light and accommodation. Ears: No lesions. Nose appeared normal. Throat: No exudate or erythema. NECK: Supple. No JVD, no carotid bruit. No lymphadenopathy or thyromegaly. LUNGS: Decreased breath sounds with ecchymotic area with change of color noted on the upper 1/3 of the chest, mixulation of blood from Clavicle fracture and pacemaker placement. No evidence of infection noted at pacemaker site. Percussion note normal. Chest symmetrical. HEART: S1, S2, no S3. No murmurs. No cyanosis or clubbing. No ascites. Pulses: Dorsalis pedis and posterior tibial pulses +1 to +2 both sides. ABDOMEN: Soft. Nontender. Bowel sounds active. No CVA tenderness. No mass felt. EXTREMITIES: No edema. Full range of motion of all extremities, equal. NEUROLOGIC: No focal deficit. Cranial nerves II through XII are grossly intact. No headache, no double vision or headache. SKIN: Not dry. Intact. Turgor - normal. LYMPHATIC: No palpable lymph nodes/no lymphedema. MUSCULOSKELETAL: Normal joints with no swelling. Muscle tone is normal. LABS: Hgb 10.9, hct 32, WBC 11,000 normal differential, creatinine 1.1, BUN 30, potassium 3.6. ASSESSMENT: 1. Hospital psychosis with Dementia seems to be resolving and almost resolved. The patient is oriented to time, place and person. 2. Left Clavicle fracture, stable 3. Pacemaker placement with telemetry showing pacemaker capturing and sensing well. 4. Anemia from Hematoma which has been stable. PLAN: 1. T4 TSH 2. Lovenox 40mg twice a day 3. INR daily 4. Restart Coumadin 5mg PO daily 5. U/A TIME SPENT: More than 30 minutes. Plan and coordination of the patient's care discussed in the presence of nurse. RAULITO
--- NOTE | 2017-04-10 14:08 | RS.OTINEVL ---
Subjective - Patient information Date of Evaluation: 04/07/17 Date of Arrival on Unit: 04/05/17 Admitted From:: Facility Transfer ([facility]) Usual Living Arrangement: With Spouse Living Arrangement Comments: Pt lives at home with his . Pt uses a RW at home. Home Environment: House, Stairs (few) (3), Rail Medical History: CVA/TIA, Arthritis (bilateral knees) Medical History Comments:: CT 1988, CABG 1988, AAA 2015 Surgical History Comments:: Pacemaker on 04/03/17 - Level of function Prior to this admission, the patient could do the following:: Independent Selfcare, Independent ADL's, Independent Ambulation (with rolling walker) Abilities prior to this admission: Pt was living at home with his . Pt fell while turning on the night light. Pt took a shower in his walk in shower. Pt did not have his rolling walker. Current Level of Function: Independent Current Equipment Used at Home: walker Pain Assessment - Pain Pain Score: 4 Side: left Pain Aggravating Factors: ADL's Additional Treatment Performed - Additional units charged ADL: 15 - Time with patient Total treatment time: 31 Activities Patient Interests:: Watching Television Patient Education Patient Education: Education of diagnosis, Home Exercise Program, Education of Plan of Care Teaching Recipient: Patient, Significant Other Teaching Methods: Discussion Assessment Problem List:: Decreased level of function, Requires training/education, Decreased safety/Risk of falls, Weakness, Pain limits previous level of function Rehab Potential: Good Further Therapy Indicated?: Yes Short Term Goals - Goals GOAL 1: Pt to increase BUE strength to 4/5. Goal to be met by: 04/17/17 GOAL 2: Pt to increase functional mobility to Minimal assistance with RW. Goal to be met by: 04/17/17 GOAL 3: Pt to tolerate 15 minutes of activity with rest PRN. Goal to be met by: 04/17/17 Half-Way Goals GOAL 1: Pt to increase BUE strength to 4+/5. Goal to be met by: 04/24/17 GOAL 2: Pt to increase functional mobility to Minimal assistance with RW. Goal to be met by: 04/24/17 GOAL 3: Pt to tolerate 15 minutes of activity with rest PRN. Goal to be met by: 04/24/17 Plan Plan of Care: Therapeutic EX, Neuromuscular Re-Educ, Therapeutic Activity, Self- Care/Home Management Frequency of Treatment: 1-2 X day, as tolerated Duration of Treatment: 2 Weeks Anticipated Discharge Destination: Home
--- NOTE | 2017-04-10 14:26 | DI ---
EXAM: PA and lateral views of the chest HISTORY: Wheezing with elevated white cell count COMPARISON: Chest x-ray 04/06/[address] chest 01/06/2017 FINDINGS: The cardiomediastinal silhouette is unchanged with intact sternotomy wires and lead wires . There is no pneumothorax or pleural effusion. Mild airway thickening is noted in the lower lobes . There is no consolidation, nodule or mass. The osseous structures are unchanged. IMPRESSION: No acute cardiopulmonary process or consolidation with stable mild cardiomegaly. There is mild airwa y thickening in the lower lobes suggestive of small airway thickening.
[2017-04-10] MEDS: COUMADIN PO SCH (16:36)
[2017-04-10] MEDS: ZOCOR PO SCH (21:04)
[2017-04-11 04:58] LABS: BASOPHILS % (AUTO) 0.5 % (0.0-3.0); EOSINOPHILS # (AUTO) 0.5 K/ul (0.0-0.7); EOSINOPHILS % (AUTO) 5.8 % (0.0-7.0); HEMATOCRIT 30.5 % (42.0-52.0); HEMOGLOBIN 10.3 g/dl (14.0-18.0); IMMATURE GRANULOCYTE % (AUTO) 0.5 % (0.0-5.0); LYMPHOCYTES # (AUTO) 1.3 K/uL (0.60-3.4); LYMPHOCYTES % (AUTO) 15.7 (10.0-50.0); MEAN CORPUSCULAR HEMOGLOBIN 30.2 pg (27.0-31.0); MEAN CORPUSCULAR HGB CONC 33.8 (31.8-35.4); MEAN CORPUSCULAR VOLUME 89.4 fl (80.0-94.0); MONOCYTES # (AUTO) 0.8 K/uL (0.4-2.0); MONOCYTES % (AUTO) 9.2 (0-10); NEUTROPHILS # (AUTO) 5.5 K/ul (2.0-6.9); NEUTROPHILS % (AUTO) 68.3; PLATELET COUNT 228 10^3/uL (140-440); RED BLOOD COUNT 3.41 10^6/ul (4.70-6.10); WHITE BLOOD COUNT 8.11 K/ul (4.2-10.2)
[2017-04-11 05:14] LABS: PROTHROMBIN TIME 11.8 SEC (9.3-11.0)
[2017-04-11 05:25] LABS: ALBUMIN 3.1 g/dL (3.4-5.0); ANION GAP 14.7; BILIRUBIN,TOTAL 0.76 mg/dL (0.00-1.20); BUN/CREATININE RATIO 24.21; CALCIUM 9.5 mg/dL (8.2-10.2); CREATININE 1.28 mg/dL (0.60-1.10); POTASSIUM 3.7 mmol/L (3.5-5.1); TOTAL PROTEIN 6.2 g/dL (5.8-8.1)
[2017-04-11] MEDS: SYNTHROID PO SCH (05:36)
[2017-04-11] MEDS: LOVENOX SUBCUT SCH ×2 (09:09→21:36)
[2017-04-11] MEDS: FLORASTOR PO SCH ×2 (09:09→21:37)
[2017-04-11] MEDS: ASPIRIN EC PO SCH (09:10)
[2017-04-11] MEDS: BUMEX PO SCH (09:10)
[2017-04-11] MEDS: LOPRESSOR PO SCH ×2 (09:10→19:39)
[2017-04-11] MEDS: TYLENOL PO SCH ×2 (09:10→21:37)
[2017-04-11] MEDS: FLOMAX PO SCH (09:10)
[2017-04-11] MEDS: COZAAR PO SCH (09:11)
[2017-04-11] MEDS: WELCHOL PO SCH ×2 (09:11→19:38)
[2017-04-11] MEDS: CLOBETASOL PROPIONATE TP SCH (09:12)
[2017-04-11] MEDS: TACROLIMUS TP SCH ×2 (09:14→20:44)
--- NOTE | 2017-04-11 12:13 | PN ---
DATE OF SERVICE: 04/10/17 SUBJECTIVE: 82-year-old white male hospitalized with left clavicular fracture which is non displaced and pacemaker placement. The patient has a large hematoma involving upper third of the chest; it seems to be resolving. The patient is feeling a lot better. He is oriented to time, place and person. REVIEW OF SYSTEMS: CONSTITUTIONAL: No night sweats. No fatigue, malaise, lethargy. No fever or chills. HEENT: Eyes: No visual changes. No eye pain. No eye discharge. ENT: No runny nose. No epistaxis. No sinus pain. No sore throat. No odynophagia. No congestion. RESPIRATORY: No cough, no congestion. No hemoptysis. CARDIOVASCULAR: No angina symptoms. No CHF symptoms. No atypical chest pain for CAD. No palpitations. No shortness of breath. GASTROINTESTINAL: No abdominal pain. No nausea or vomiting. No diarrhea or constipation. No hematemesis. No hematochezia. GENITOURINARY: No urgency. No frequency. No dysuria. No hematuria. No obstructive symptoms. No discharge. No pain. No significant abnormal bleeding. MUSCULOSKELETAL: No musculoskeletal pain; no joint swelling. NEUROLOGICAL: No headache. No neck pain. No syncope. No seizures. No dizziness. PSYCHIATRIC: Not anxious. No depression. No suicidal thoughts. No homicidal thoughts. SKIN: No rash. As described in physical exam. ENDOCRINE: No unexplained weight loss. No weight gain. HEMATOLOGIC/LYMPHATIC: No anemia. No purpura. No petechiae. No prolonged or excessive bleeding. No palpable lymph nodes. PHYSICAL EXAMINATION: GENERAL: The patient is oriented to time, place and person. VITAL SIGNS: Temperature 98.1, pulse 78, respiratory rate 22, BP 110/71, pulse ox 94%. HEENT: Head normocephalic, atraumatic. Eyes: Extraocular muscles are intact. Pupils are equal, round and reactive to light and accommodation. Ears: No lesions. Nose appeared normal. Throat: No exudate or erythema. NECK: Supple. No JVD, no carotid bruit. No lymphadenopathy or thyromegaly. LUNGS: Decreased breath sounds but clear to auscultation. Percussion note normal. Chest symmetrical. HEART: S1, S2, no S3. No murmurs. No cyanosis or clubbing. No ascites. Pulses: Dorsalis pedis and posterior tibial pulses +1 to +2 both sides. ABDOMEN: Soft. The patient has ecchymotic area over one-third of the upper part of the chest, seems to be resolving. No new hematoma noted with ecchymosis. Nontender. Bowel sounds active. No CVA tenderness. No mass felt. EXTREMITIES: No edema. Full range of motion of all extremities, equal. NEUROLOGIC: No focal deficit. Cranial nerves II through XII are grossly intact. No headache, no double vision or headache. SKIN: Not dry. Intact. Turgor - normal. LYMPHATIC: No palpable lymph nodes/no lymphedema. MUSCULOSKELETAL: Normal joints with no swelling. Muscle tone is normal. LABS: INR still 1.1. The patient is on Lovenox 40 mg twice a day. Hemoglobin 9.8, hematocrit 29, WBC 13,000, normal differential. Creatinine 1.3, BUN 30, potassium 4.1. ASSESSMENT: 1. MILD COUGH WITH BRONCHITIS 2. ANEMIA 3. FRACTURE OF THE LEFT CLAVICLE 4. PACEMAKER PLACEMENT 5. HISTORY OF CVA 6. CHRONIC KIDNEY DISEASE 7. HYPERTENSION PLAN: 1. Continue Coumadin. 2. Continue Lovenox until the INR reaches desirable level. 3. Continue to encourage the patient to get up and walk with help. 4. Put left arm in sling for clavicular fracture. 5. The patient is to follow up with the orthopedic surgeon and Dr. Payan as listed in discharge summary. TIME SPENT: More than 30 minutes. Plan and coordination of the patient's care discussed in the presence of nurse. RAULITO
[2017-04-11] MEDS: COUMADIN PO SCH (19:39)
[2017-04-11] MEDS: ZOCOR PO SCH (21:37)
[2017-04-12 05:42] LABS: BASOPHILS % (AUTO) 0.5 % (0.0-3.0); EOSINOPHILS # (AUTO) 0.4 K/ul (0.0-0.7); EOSINOPHILS % (AUTO) 4.8 % (0.0-7.0); HEMOGLOBIN 9.7 g/dl (14.0-18.0); IMMATURE GRANULOCYTE % (AUTO) 0.5 % (0.0-5.0); LYMPHOCYTES # (AUTO) 1.3 K/uL (0.60-3.4); MEAN CORPUSCULAR HEMOGLOBIN 29.7 pg (27.0-31.0); MEAN CORPUSCULAR HGB CONC 33.4 (31.8-35.4); MEAN CORPUSCULAR VOLUME 88.7 fl (80.0-94.0); MONOCYTES # (AUTO) 0.8 K/uL (0.4-2.0); MONOCYTES % (AUTO) 10.4 (0-10); NEUTROPHILS # (AUTO) 4.9 K/ul (2.0-6.9); NEUTROPHILS % (AUTO) 65.8; PLATELET COUNT 250 10^3/uL (140-440); RED BLOOD COUNT 3.27 10^6/ul (4.70-6.10); WHITE BLOOD COUNT 7.43 K/ul (4.2-10.2)
[2017-04-12 05:50] LABS: PROTHROMBIN TIME 11.6 SEC (9.3-11.0)
[2017-04-12] MEDS: SYNTHROID PO SCH (05:55)
[2017-04-12 06:02] LABS: ANION GAP 12.9; BILIRUBIN,TOTAL 0.72 mg/dL (0.00-1.20); BUN/CREATININE RATIO 25.71; CALCIUM 9.3 mg/dL (8.2-10.2); CREATININE 1.05 mg/dL (0.60-1.10); POTASSIUM 3.9 mmol/L (3.5-5.1)
[2017-04-12] MEDS: LOVENOX SUBCUT SCH ×2 (09:47→20:42)
[2017-04-12] MEDS: ASPIRIN EC PO SCH (09:49)
[2017-04-12] MEDS: WELCHOL PO SCH ×2 (09:49→17:57)
[2017-04-12] MEDS: BUMEX PO SCH (09:49)
[2017-04-12] MEDS: FLOMAX PO SCH (09:50)
[2017-04-12] MEDS: COZAAR PO SCH (09:50)
[2017-04-12] MEDS: LOPRESSOR PO SCH ×2 (09:50→17:57)
[2017-04-12] MEDS: FLORASTOR PO SCH ×2 (09:50→20:43)
[2017-04-12] MEDS: CLOBETASOL PROPIONATE TP SCH (09:51)
[2017-04-12] MEDS: TACROLIMUS TP SCH ×2 (09:51→22:43)
[2017-04-12] MEDS: TYLENOL PO SCH ×2 (09:51→20:43)
--- NOTE | 2017-04-12 13:19 | PCM.PROG ---
Attending Provider: ATTENDING PROVIDER: Dr. MICHELE DOWELL DATE OF SERVICE: 04/12/17 SUBJECTIVE: This 82 year old WHITE/ M was hospitalized 04/05/17. The patient is seen with Jasmina, Nurse Practitioner. He is lying in bed, is alert. He has been doing PT. He is still weak. REVIEW OF SYSTEMS: CONSTITUTIONAL: Generalized weakness. No night sweats. No fever or chills. HEENT: Eyes: No visual changes. No eye pain. No eye discharge. ENT: No runny nose. No epistaxis. No sinus pain. No odynophagia. No congestion. RESPIRATORY: No cough, no congestion. No hemoptysis. CARDIOVASCULAR: No angina symptoms. No CHF symptoms. No atypical chest pain for CAD. No palpitations. No shortness of breath. GASTROINTESTINAL: No abdominal pain. No nausea or vomiting. No diarrhea or constipation. No hematemesis. No hematochezia. GENITOURINARY: No urgency. No frequency. No dysuria. No hematuria. No obstructive symptoms. No discharge. No pain. No significant abnormal bleeding. MUSCULOSKELETAL: No musculoskeletal pain; no joint swelling. NEUROLOGICAL: Awake, alert, oriented to time, place and person. No headache. No neck pain. No syncope. No seizures. No dizziness. PSYCHIATRIC: Not anxious. No depression. No suicidal thoughts. No homicidal thoughts. SKIN: No rash. Incision from pacemaker is clean and dry. ENDOCRINE: No unexplained weight loss. No weight gain. HEMATOLOGIC/LYMPHATIC: No anemia. No purpura. No petechiae. No prolonged or excessive bleeding. No palpable lymph nodes. PHYSICAL EXAMINATION: GENERAL: The patient is awake, alert, oriented to person and place, lying in bed in no distress. VITAL SIGNS: Temperature 97.3 F, Pulse 80, Respiratory Rate 19, BP 131/70, Pulse Ox 93% HEENT: Head normocephalic, atraumatic. Eyes: Extraocular muscles are intact. Pupils are equal, round and reactive to light and accommodation. Ears: No lesions. Nose appeared normal. Throat: No exudate or erythema. NECK: Supple. No JVD, no carotid bruit. No lymphadenopathy or thyromegaly. LUNGS: Diminished breath sounds bilaterally equal and clear to auscultation. Percussion note normal. Chest symmetrical. HEART: S1, S2, no S3. No murmurs. No cyanosis or clubbing. No ascites. Pulses: Dorsalis pedis and posterior tibial pulses +1 to +2 both sides. ABDOMEN: Soft. Non-tender. Bowel sounds active. No CVA tenderness. No mass felt. EXTREMITIES: No edema. Full range of motion of all extremities, equal. NEUROLOGIC: No focal deficit. Cranial nerves II through XII are grossly intact. No headache, no double vision or headache. SKIN: Multiple bruises but intact from fall. LYMPHATIC: No palpable lymph nodes/no lymphedema. MUSCULOSKELETAL: Normal joints with no swelling. Muscle tone is normal. LAB REVIEW: 04/12/17 05:10 04/12/17 05:10 04/12/17 05:10: WBC 7.43, RBC 3.27 L, Hgb 9.7 L, Hct 29.0 L, MCV 88.7, MCH 29.7 , MCHC 33.4, RDW Coeff of Todd 13.2, Plt Count 250, Immature Gran % (Auto) 0.5, Neut % (Auto) 65.8, Lymph % (Auto) 18.0, [place] % (Auto) 10.4 H, Eos % (Auto) 4.8 , Baso % (Auto) 0.5, Immature Gran # (Auto) 0.0, Neut # 4.9, Lymph # 1.3, [place] # 0.8, Eos # 0.4, Baso # 0.0, PT 11.6 H, INR 1.14, Sodium 136, Potassium 3.9, Chloride 99, Carbon Dioxide 28, Anion Gap 12.9, BUN 27 H, Creatinine 1.05, Estimated GFR (MDRD) 67.00, BUN/Creatinine Ratio 25.71, Glucose 90, Calcium 9.3 , Total Bilirubin 0.72, AST 17, ALT 12, Alkaline Phosphatase 80, Total Protein 6.0, Albumin 3.0 L, Globulin 3.0, Albumin/Globulin Ratio 1.00 ASSESSMENT: 1. Left clavicular fracture 2. Permanent pacemaker placement 3. Agitation- could be hospital psychosis mixed with early dementia 4. History of CVA 5. Anemia 6. Coronary artery disease 7. Chronic kidney disease PLAN: 1. Continue PT/OT. 2. Encourage the patient to be up and about. Plan and coordination of the patient's care discussed in the presence of Computer Forensics Analyst and nurse. CONDITION: Stable SCRIBED BY: TRACY ROBISON, Radio Reporter scribed while in presence of service performed by Dr. MICHELE DOWELL/JASMINA MCBRIDE APRN on 04/12/17 (0800)
[2017-04-12] MEDS: COUMADIN PO SCH (17:58)
[2017-04-12] MEDS: ZOCOR PO SCH (20:43)
[2017-04-13 04:45] LABS: BASOPHILS # (AUTO) 0.1 K/uL (0-0.2); BASOPHILS % (AUTO) 0.7 % (0.0-3.0); EOSINOPHILS # (AUTO) 0.4 K/ul (0.0-0.7); EOSINOPHILS % (AUTO) 5.6 % (0.0-7.0); HEMATOCRIT 28.9 % (42.0-52.0); HEMOGLOBIN 9.7 g/dl (14.0-18.0); IMMATURE GRANULOCYTE % (AUTO) 0.3 % (0.0-5.0); LYMPHOCYTES # (AUTO) 1.5 K/uL (0.60-3.4); MEAN CORPUSCULAR HEMOGLOBIN 29.9 pg (27.0-31.0); MEAN CORPUSCULAR HGB CONC 33.6 (31.8-35.4); MEAN CORPUSCULAR VOLUME 89.2 fl (80.0-94.0); MONOCYTES # (AUTO) 0.7 K/uL (0.4-2.0); MONOCYTES % (AUTO) 8.9 (0-10); NEUTROPHILS # (AUTO) 4.9 K/ul (2.0-6.9); NEUTROPHILS % (AUTO) 64.5; PLATELET COUNT 263 10^3/uL (140-440); RED BLOOD COUNT 3.24 10^6/ul (4.70-6.10); WHITE BLOOD COUNT 7.54 K/ul (4.2-10.2)
[2017-04-13 04:54] LABS: PROTHROMBIN TIME 11.8 SEC (9.3-11.0)
[2017-04-13 05:04] LABS: ALBUMIN 2.9 g/dL (3.4-5.0); ALBUMIN/GLOBULIN RATIO 0.91; ANION GAP 13.9; BILIRUBIN,TOTAL 0.58 mg/dL (0.00-1.20); CALCIUM 9.4 mg/dL (8.2-10.2); POTASSIUM 3.9 mmol/L (3.5-5.1); TOTAL PROTEIN 6.1 g/dL (5.8-8.1)
[2017-04-13] MEDS: SYNTHROID PO SCH (05:34)
[2017-04-13] MEDS: TYLENOL PO SCH ×2 (10:46→20:12)
[2017-04-13] MEDS: WELCHOL PO SCH ×2 (10:47→17:03)
[2017-04-13] MEDS: FLORASTOR PO SCH ×2 (10:48→20:12)
[2017-04-13] MEDS: ASPIRIN EC PO SCH (10:48)
[2017-04-13] MEDS: BUMEX PO SCH (10:48)
[2017-04-13] MEDS: LOPRESSOR PO SCH ×2 (10:48→17:03)
[2017-04-13] MEDS: CLOBETASOL PROPIONATE TP SCH (10:48)
[2017-04-13] MEDS: COZAAR PO SCH (10:48)
[2017-04-13] MEDS: FLOMAX PO SCH (10:48)
[2017-04-13] MEDS: LOVENOX SUBCUT SCH ×2 (10:49→20:13)
[2017-04-13] MEDS: TACROLIMUS TP SCH ×2 (10:53→22:19)
--- NOTE | 2017-04-13 10:56 | PCM.PROG ---
Attending Provider: ATTENDING PROVIDER: Dr. MICHELE DOWELL DATE OF SERVICE: 04/13/17 SUBJECTIVE: This 82 year old WHITE/ M was hospitalized 04/05/17. The patient is seen with Jasmina, Nurse Practitioner. The patient is alert, lying in bed. He has been getting up with assistance. He has decreased appetite because food is bad he says. REVIEW OF SYSTEMS: CONSTITUTIONAL: Generalized weakness. No night sweats. No fever or chills. HEENT: Eyes: No visual changes. No eye pain. No eye discharge. ENT: No runny nose. No epistaxis. No sinus pain. No odynophagia. No congestion. RESPIRATORY: No cough, no congestion. No hemoptysis. No shortness of breath. CARDIOVASCULAR: No angina symptoms. No CHF symptoms. No atypical chest pain for CAD. No palpitations. No orthopnea. GASTROINTESTINAL: No abdominal pain. No nausea or vomiting. No diarrhea or constipation. No hematemesis. No hematochezia. GENITOURINARY: No urgency. No frequency. No dysuria. No hematuria. No obstructive symptoms. No discharge. No pain. No significant abnormal bleeding. MUSCULOSKELETAL: No musculoskeletal pain; no joint swelling. NEUROLOGICAL: Awake, alert, oriented to place and person. No headache. No neck pain. No syncope. No seizures. No dizziness. PSYCHIATRIC: Not anxious. No depression. No suicidal thoughts. No homicidal thoughts. SKIN: No rash. ENDOCRINE: No unexplained weight loss. No weight gain. HEMATOLOGIC/LYMPHATIC: No anemia. No purpura. No petechiae. No prolonged or excessive bleeding. No palpable lymph nodes. PHYSICAL EXAMINATION: GENERAL: The patient is awake, alert and oriented, lying in bed in no distress. VITAL SIGNS: Temperature 98.1 F, Pulse 64, Respiratory Rate 20, BP 124/65, Pulse Ox 96% HEENT: Head normocephalic, atraumatic. Eyes: Extraocular muscles are intact. Pupils are equal, round and reactive to light and accommodation. Ears: No lesions. Nose appeared normal. Throat: No exudate or erythema. NECK: Supple. No JVD, no carotid bruit. No lymphadenopathy or thyromegaly. LUNGS: Diminished breath sounds bilaterally. Clear to auscultation. Percussion note normal. Chest symmetrical. HEART: S1, S2, no S3. No murmurs. No cyanosis or clubbing. No ascites. Pulses: Dorsalis pedis and posterior tibial pulses +1 to +2 both sides. ABDOMEN: Soft. Non-tender. Bowel sounds active. No CVA tenderness. No mass felt. EXTREMITIES: No edema. Full range of motion of all extremities, equal. NEUROLOGIC: No focal deficit. Cranial nerves II through XII are grossly intact. No headache, no double vision or headache. SKIN: Multiple bruising noted along chest , back and arms. Pacemaker incision site is clear, intact and dry. No signs of infection. Possible callous formation on left clavicle toward midline, no redness. LYMPHATIC: No palpable lymph nodes/no lymphedema. MUSCULOSKELETAL: Normal joints with no swelling. Muscle tone is normal. LAB REVIEW: 04/13/17 04:30 04/13/17 04:30 04/13/17 04:30: WBC 7.54, RBC 3.24 L, Hgb 9.7 L, Hct 28.9 L, MCV 89.2, MCH 29.9 , MCHC 33.6, RDW Coeff of Todd 13.2, Plt Count 263, Immature Gran % (Auto) 0.3, Neut % (Auto) 64.5, Lymph % (Auto) 20.0, [place] % (Auto) 8.9, Eos % (Auto) 5.6, Baso % (Auto) 0.7, Immature Gran # (Auto) 0.0, Neut # 4.9, Lymph # 1.5, [place] # 0.7, Eos # 0.4, Baso # 0.1, PT 11.8 H, INR 1.17, Sodium 137, Potassium 3.9, Chloride 99, Carbon Dioxide 28, Anion Gap 13.9, BUN 25 H, Creatinine 1.00, Estimated GFR (MDRD) 71.00, BUN/Creatinine Ratio 25.00, Glucose 90, Calcium 9.4 , Total Bilirubin 0.58, AST 16, ALT 12, Alkaline Phosphatase 81, Total Protein 6.1, Albumin 2.9 L, Globulin 3.2, Albumin/Globulin Ratio 0.91 ASSESSMENT: 1. Left clavicular fracture 2. Permanent pacemaker placement 3. Agitation- could be hospital psychosis mixed with early dementia 4. History of CVA 5. Anemia 6. Coronary artery disease 7. Chronic kidney disease PLAN: 1. Re-x-ray of left clavicle. 2. Will monitor closely. Plan and coordination of the patient's care discussed in the presence of Line Fixer and nurse. CONDITION: Stable SCRIBED BY: Nathan JACOBSENist scribed while in presence of service performed by Dr. MICHELE DOWELL/JASMINA MCBRIDE APRN on 04/13/17 ([id number])
--- NOTE | 2017-04-13 15:58 | DI ---
EXAM: Left shoulder, two views, 04/13/2017 HISTORY: Left clavicular fracture COMPARISON: 04/10/2017 FINDINGS / IMPRESSION: No acute fracture identified. 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 Additional moderate glenohumeral massiel nt degenerative changes with osteophyte formation. No evidence of acute fracture or dislocation.
[2017-04-13] MEDS: COUMADIN PO SCH (17:03)
[2017-04-13] MEDS: ZOCOR PO SCH (20:12)
[2017-04-14 05:13] LABS: BASOPHILS # (AUTO) 0.1 K/uL (0-0.2); BASOPHILS % (AUTO) 0.7 % (0.0-3.0); EOSINOPHILS # (AUTO) 0.5 K/ul (0.0-0.7); EOSINOPHILS % (AUTO) 6.9 % (0.0-7.0); HEMATOCRIT 29.8 % (42.0-52.0); HEMOGLOBIN 10.1 g/dl (14.0-18.0); IMMATURE GRANULOCYTE % (AUTO) 0.4 % (0.0-5.0); LYMPHOCYTES # (AUTO) 1.5 K/uL (0.60-3.4); LYMPHOCYTES % (AUTO) 22.3 (10.0-50.0); MEAN CORPUSCULAR HEMOGLOBIN 30.1 pg (27.0-31.0); MEAN CORPUSCULAR HGB CONC 33.9 (31.8-35.4); MEAN CORPUSCULAR VOLUME 88.7 fl (80.0-94.0); MONOCYTES # (AUTO) 0.7 K/uL (0.4-2.0); MONOCYTES % (AUTO) 10.1 (0-10); NEUTROPHILS # (AUTO) 4.1 K/ul (2.0-6.9); NEUTROPHILS % (AUTO) 59.6; PLATELET COUNT 292 10^3/uL (140-440); RED BLOOD COUNT 3.36 10^6/ul (4.70-6.10); WHITE BLOOD COUNT 6.83 K/ul (4.2-10.2)
[2017-04-14 05:25] LABS: ALBUMIN/GLOBULIN RATIO 0.94; ANION GAP 13.9; BILIRUBIN,TOTAL 0.58 mg/dL (0.00-1.20); BUN/CREATININE RATIO 22.68; CALCIUM 9.3 mg/dL (8.2-10.2); CREATININE 0.97 mg/dL (0.60-1.10); POTASSIUM 3.9 mmol/L (3.5-5.1); TOTAL PROTEIN 6.2 g/dL (5.8-8.1)
[2017-04-14] MEDS: SYNTHROID PO SCH (05:41)
[2017-04-14 06:00] LABS: PROTHROMBIN TIME 12.4 SEC (9.3-11.0)
[2017-04-14] MEDS: FLOMAX PO SCH (08:45)
[2017-04-14] MEDS: LOPRESSOR PO SCH ×2 (08:45→18:12)
[2017-04-14] MEDS: BUMEX PO SCH (08:45)
[2017-04-14] MEDS: FLORASTOR PO SCH ×2 (08:45→20:00)
[2017-04-14] MEDS: ASPIRIN EC PO SCH (08:45)
[2017-04-14] MEDS: COZAAR PO SCH (08:45)
[2017-04-14] MEDS: WELCHOL PO SCH ×2 (08:45→18:12)
[2017-04-14] MEDS: TYLENOL PO SCH ×2 (08:46→20:00)
[2017-04-14] MEDS: CLOBETASOL PROPIONATE TP SCH (08:46)
[2017-04-14] MEDS: LOVENOX SUBCUT SCH ×2 (08:46→20:00)
[2017-04-14] MEDS: TACROLIMUS TP SCH ×2 (09:10→20:03)
[2017-04-14] MEDS: COUMADIN PO SCH (17:45)
[2017-04-14] MEDS: ZOCOR PO SCH (20:00)
[2017-04-15 05:26] LABS: BASOPHILS % (AUTO) 0.5 % (0.0-3.0); EOSINOPHILS # (AUTO) 0.5 K/ul (0.0-0.7); HEMATOCRIT 30.9 % (42.0-52.0); HEMOGLOBIN 10.4 g/dl (14.0-18.0); IMMATURE GRANULOCYTE % (AUTO) 0.5 % (0.0-5.0); LYMPHOCYTES # (AUTO) 1.4 K/uL (0.60-3.4); LYMPHOCYTES % (AUTO) 17.8 (10.0-50.0); MEAN CORPUSCULAR HEMOGLOBIN 30.1 pg (27.0-31.0); MEAN CORPUSCULAR HGB CONC 33.7 (31.8-35.4); MEAN CORPUSCULAR VOLUME 89.3 fl (80.0-94.0); MONOCYTES # (AUTO) 0.7 K/uL (0.4-2.0); MONOCYTES % (AUTO) 8.4 (0-10); NEUTROPHILS # (AUTO) 5.4 K/ul (2.0-6.9); NEUTROPHILS % (AUTO) 66.8; PLATELET COUNT 313 10^3/uL (140-440); RED BLOOD COUNT 3.46 10^6/ul (4.70-6.10)
[2017-04-15 05:35] LABS: PROTHROMBIN TIME 13.6 SEC (9.3-11.0)
[2017-04-15 05:40] LABS: ALBUMIN 3.2 g/dL (3.4-5.0); ALBUMIN/GLOBULIN RATIO 1.03; ANION GAP 15.9; BILIRUBIN,TOTAL 0.53 mg/dL (0.00-1.20); BUN/CREATININE RATIO 20.75; CALCIUM 9.5 mg/dL (8.2-10.2); CREATININE 1.06 mg/dL (0.60-1.10); POTASSIUM 3.9 mmol/L (3.5-5.1); TOTAL PROTEIN 6.3 g/dL (5.8-8.1)
[2017-04-15] MEDS: SYNTHROID PO SCH (05:50)
[2017-04-15] MEDS: TYLENOL PO SCH ×2 (08:56→20:17)
[2017-04-15] MEDS: BUMEX PO SCH (08:56)
[2017-04-15] MEDS: FLOMAX PO SCH (08:56)
[2017-04-15] MEDS: WELCHOL PO SCH ×2 (08:56→17:06)
[2017-04-15] MEDS: COZAAR PO SCH (08:56)
[2017-04-15] MEDS: CLOBETASOL PROPIONATE TP SCH (08:57)
[2017-04-15] MEDS: ASPIRIN EC PO SCH (08:57)
[2017-04-15] MEDS: FLORASTOR PO SCH ×2 (08:57→20:18)
[2017-04-15] MEDS: LOVENOX SUBCUT SCH ×2 (08:57→20:18)
[2017-04-15] MEDS: LOPRESSOR PO SCH ×2 (08:57→17:06)
[2017-04-15] MEDS: TACROLIMUS TP SCH ×2 (08:58→20:19)
[2017-04-15] MEDS: COUMADIN PO SCH (17:06)
[2017-04-15] MEDS: ZOCOR PO SCH (20:17)
[2017-04-16 04:37] LABS: BASOPHILS # (AUTO) 0.1 K/uL (0-0.2); BASOPHILS % (AUTO) 0.8 % (0.0-3.0); EOSINOPHILS # (AUTO) 0.5 K/ul (0.0-0.7); EOSINOPHILS % (AUTO) 7.1 % (0.0-7.0); IMMATURE GRANULOCYTE % (AUTO) 0.7 % (0.0-5.0); LYMPHOCYTES # (AUTO) 1.6 K/uL (0.60-3.4); LYMPHOCYTES % (AUTO) 21.8 (10.0-50.0); MEAN CORPUSCULAR HEMOGLOBIN 29.9 pg (27.0-31.0); MEAN CORPUSCULAR HGB CONC 33.3 (31.8-35.4); MEAN CORPUSCULAR VOLUME 89.6 fl (80.0-94.0); MONOCYTES # (AUTO) 0.7 K/uL (0.4-2.0); MONOCYTES % (AUTO) 9.7 (0-10); NEUTROPHILS # (AUTO) 4.5 K/ul (2.0-6.9); NEUTROPHILS % (AUTO) 59.9; PLATELET COUNT 286 10^3/uL (140-440); RED BLOOD COUNT 3.35 10^6/ul (4.70-6.10); WHITE BLOOD COUNT 7.49 K/ul (4.2-10.2)
[2017-04-16 04:57] LABS: ALBUMIN 3.1 g/dL (3.4-5.0); ALBUMIN/GLOBULIN RATIO 1.07; BILIRUBIN,TOTAL 0.46 mg/dL (0.00-1.20); BUN/CREATININE RATIO 18.91; CALCIUM 9.4 mg/dL (8.2-10.2); CREATININE 1.11 mg/dL (0.60-1.10)
[2017-04-16] MEDS: SYNTHROID PO SCH (06:20)
[2017-04-16] MEDS: TYLENOL PO SCH ×2 (08:19→21:26)
[2017-04-16] MEDS: WELCHOL PO SCH ×2 (08:19→17:09)
[2017-04-16] MEDS: BUMEX PO SCH (08:19)
[2017-04-16] MEDS: COZAAR PO SCH (08:19)
[2017-04-16] MEDS: ASPIRIN EC PO SCH (08:19)
[2017-04-16] MEDS: FLORASTOR PO SCH ×2 (08:19→21:27)
[2017-04-16] MEDS: FLOMAX PO SCH (08:19)
[2017-04-16] MEDS: LOPRESSOR PO SCH ×2 (08:19→17:08)
[2017-04-16] MEDS: CLOBETASOL PROPIONATE TP SCH (08:20)
[2017-04-16] MEDS: LOVENOX SUBCUT SCH ×2 (08:20→21:27)
[2017-04-16] MEDS: TACROLIMUS TP SCH ×2 (08:22→21:54)
[2017-04-16] MEDS: ANTIVERT PO PRN (15:27)
[2017-04-16] MEDS: COUMADIN PO SCH (17:08)
[2017-04-16] MEDS: ZOCOR PO SCH (21:26)
[2017-04-17 04:50] LABS: BASOPHILS # (AUTO) 0.1 K/uL (0-0.2); BASOPHILS % (AUTO) 0.3 % (0.0-3.0); HEMATOCRIT 33.1 % (42.0-52.0); HEMOGLOBIN 11.3 g/dl (14.0-18.0); IMMATURE GRANULOCYTE % (AUTO) 0.8 % (0.0-5.0); LYMPHOCYTES # (AUTO) 1.2 K/uL (0.60-3.4); MEAN CORPUSCULAR HEMOGLOBIN 30.2 pg (27.0-31.0); MEAN CORPUSCULAR HGB CONC 34.1 (31.8-35.4); MEAN CORPUSCULAR VOLUME 88.5 fl (80.0-94.0); MONOCYTES # (AUTO) 2.3 K/uL (0.4-2.0); MONOCYTES % (AUTO) 9.4 (0-10); NEUTROPHILS # (AUTO) 21.1 K/ul (2.0-6.9); NEUTROPHILS % (AUTO) 84.5; PLATELET COUNT 344 10^3/uL (140-440); RED BLOOD COUNT 3.74 10^6/ul (4.70-6.10)
[2017-04-17 05:20] LABS: ALBUMIN 3.3 g/dL (3.4-5.0); ANION GAP 17.3; BILIRUBIN,TOTAL 0.76 mg/dL (0.00-1.20); BUN/CREATININE RATIO 18.57; CALCIUM 9.9 mg/dL (8.2-10.2); CREATININE 1.4 mg/dL (0.60-1.10); POTASSIUM 4.3 mmol/L (3.5-5.1); TOTAL PROTEIN 6.6 g/dL (5.8-8.1)
[2017-04-17 05:23] LABS: PROTHROMBIN TIME 15.3 SEC (9.3-11.0)
[2017-04-17] MEDS: SYNTHROID PO SCH (05:40)
[2017-04-17] MEDS: CLOBETASOL PROPIONATE TP SCH (08:36)
[2017-04-17] MEDS: WELCHOL PO SCH ×2 (08:37→16:53)
[2017-04-17] MEDS: ASPIRIN EC PO SCH (08:37)
[2017-04-17] MEDS: FLOMAX PO SCH (08:37)
[2017-04-17] MEDS: FLORASTOR PO SCH ×2 (08:37→20:20)
[2017-04-17] MEDS: TYLENOL PO SCH ×2 (08:37→20:20)
[2017-04-17] MEDS: LOPRESSOR PO SCH ×2 (08:38→16:53)
[2017-04-17] MEDS: LOVENOX SUBCUT SCH ×2 (08:38→20:20)
[2017-04-17] MEDS: COZAAR PO SCH (08:38)
[2017-04-17] MEDS: BUMEX PO SCH (08:38)
[2017-04-17] MEDS: TACROLIMUS TP SCH ×2 (08:50→20:22)
[2017-04-17] MEDS ORDERED: ROCEPHIN 1 GM in SODIUM CHLORIDE 50 ML IV SCH (09:00)
--- NOTE | 2017-04-17 09:04 | PN ---
DATE OF SERVICE: 04/12/17 SUBJECTIVE: The patient was seen and examined with the Nurse Practitioner. The patient is an 82 year old white male he is swing bed. The patient's condition has improved. The ecchymosis in the upper 1/3 of the chest practically has subsided. REVIEW OF SYSTEMS: CONSTITUTIONAL: No night sweats. No fatigue, malaise, lethargy. No fever or chills. HEENT: Eyes: No visual changes. No eye pain. No eye discharge. ENT: No runny nose. No epistaxis. No sinus pain. No sore throat. No odynophagia. No congestion. RESPIRATORY: No cough, no congestion. No hemoptysis. No shortness of breath. CARDIOVASCULAR: No angina symptoms. No CHF symptoms. No atypical chest pain for CAD. No palpitations. No orthopnea. GASTROINTESTINAL: No abdominal pain. No nausea or vomiting. No diarrhea or constipation. No hematemesis. No hematochezia. GENITOURINARY: No urgency. No frequency. No dysuria. No hematuria. No obstructive symptoms. No discharge. No pain. No significant abnormal bleeding. MUSCULOSKELETAL: No musculoskeletal pain; no joint swelling. NEUROLOGICAL: No headache. No neck pain. No syncope. No seizures. No dizziness. PSYCHIATRIC: Not anxious. No depression. No suicidal thoughts. No homicidal thoughts. SKIN: No rash. No lesions. No wounds. ENDOCRINE: No unexplained weight loss. No weight gain. HEMATOLOGIC/LYMPHATIC: No anemia. No purpura. No petechiae. No prolonged or excessive bleeding. No palpable lymph nodes. PHYSICAL EXAMINATION: GENERAL: The patient is oriented to place and person. The is sitting in the room and discussed all the problems. He has been advised to walk, advised to eat three meals. VITAL SIGNS: Temperature 97.3, pulse 80, respiratory rate 19, blood pressure 130/70 and pulse ox 93% on room air. HEENT: Head normocephalic, atraumatic. Eyes: Extraocular muscles are intact. Pupils are equal, round and reactive to light and accommodation. Ears: No lesions. Nose appeared normal. Throat: No exudate or erythema. NECK: Supple. No JVD, no carotid bruit. No lymphadenopathy or thyromegaly. LUNGS: Clear to auscultation. Percussion note normal. Chest symmetrical. HEART: S1, S2, no S3. No murmurs. No cyanosis or clubbing. No ascites. Pulses: Dorsalis pedis and posterior tibial pulses +1 to +2 both sides. ABDOMEN: Soft. Nontender. Bowel sounds active. No CVA tenderness. No mass felt. EXTREMITIES: No edema. Full range of motion of all extremities, equal. NEUROLOGIC: No focal deficit. Cranial nerves II through XII are grossly intact. No headache, no double vision or headache. SKIN: Not dry. Intact. Turgor - normal. LYMPHATIC: No palpable lymph nodes/no lymphedema. MUSCULOSKELETAL: Normal joints with no swelling. Muscle tone is normal. LABS: Hgb 9.7, hct 29, WBC 7,400 normal differential, creatinine 1, BUN 27 and potassium 3.9. CONDITION: STABLE The patient was seen and examined with Nurse Practitioner. TIME SPENT: More than 30 minutes. Plan and coordination of the patient's care discussed in the presence of nurse. RAULITO
[2017-04-17] MEDS: ROCEPHIN 1 GM in SODIUM CHLORIDE 50 ML IV SCH (10:01)
--- NOTE | 2017-04-17 12:56 | PCM.PROG ---
Attending Provider: ATTENDING PROVIDER: Dr. MICHELE DOWELL DATE OF SERVICE: 04/17/17 SUBJECTIVE: This 82 year old WHITE/ M was hospitalized 04/05/17. The patient is seen with Jasmina, Nurse Practitioner. The patient is lying in bed sleeping. He has had episodes of confusion, He has a low grade fever 100.1 today and started with weakness yesterday. White count 24,000 today. REVIEW OF SYSTEMS: CONSTITUTIONAL: Positive for fever and fatigue. No night sweats. HEENT: Eyes: No visual changes. No eye pain. No eye discharge. ENT: No runny nose. No epistaxis. No sinus pain. No odynophagia. No congestion. RESPIRATORY: No cough, no congestion. No hemoptysis. No shortness of breath. CARDIOVASCULAR: No angina symptoms. No CHF symptoms. No atypical chest pain for CAD. No palpitations. No orthopnea.. GASTROINTESTINAL: No abdominal pain. No nausea or vomiting. No diarrhea or constipation. No hematemesis. No hematochezia. GENITOURINARY: No urgency. No frequency. No dysuria. No hematuria. No obstructive symptoms. No discharge. No pain. No significant abnormal bleeding. MUSCULOSKELETAL: No musculoskeletal pain; no joint swelling. NEUROLOGICAL: Sleepy with periods of confusion. No headache. No neck pain. No syncope. No seizures. No dizziness. PSYCHIATRIC: Not anxious. No depression. No suicidal thoughts. No homicidal thoughts. SKIN: No rash. Pacemaker insertion site healthy looking. Bruising noted to arms and chest. ENDOCRINE: No unexplained weight loss. No weight gain. HEMATOLOGIC/LYMPHATIC: No anemia. No purpura. No petechiae. No prolonged or excessive bleeding. No palpable lymph nodes. PHYSICAL EXAMINATION: GENERAL: The patient is sleepy with confusion, in bed in no distress. VITAL SIGNS: Temperature 100.1 F, Pulse 112, Respiratory Rate 24, BP 123/71, Pulse Ox 91% HEENT: Head normocephalic, atraumatic. Eyes: Extraocular muscles are intact. Pupils are equal, round and reactive to light and accommodation. Ears: No lesions. Nose appeared normal. Throat: No exudate or erythema. NECK: Supple. No JVD, no carotid bruit. No lymphadenopathy or thyromegaly. LUNGS: Diminished breath sounds; rhonchi right upper lobe. Percussion note normal. Chest symmetrical. HEART: S1, S2, no S3. No murmurs. No cyanosis or clubbing. No ascites. Pulses: Dorsalis pedis and posterior tibial pulses +1 to +2 both sides. ABDOMEN: Soft. Non-tender. Bowel sounds active. No CVA tenderness. No mass felt. EXTREMITIES: No edema. Full range of motion of all extremities, equal. NEUROLOGIC: No focal deficit. Cranial nerves II through XII are grossly intact. No headache, no double vision or headache. SKIN: Pacemaker incision site clean, dry and intact. Bruising noted to arms and chest. LYMPHATIC: No palpable lymph nodes/no lymphedema. MUSCULOSKELETAL: Normal joints with no swelling. Muscle tone is normal. LAB REVIEW: 04/17/17 04:48 04/17/17 04:48 04/17/17 04:48: WBC 24.90 H D, RBC 3.74 L, Hgb 11.3 L, Hct 33.1 L, MCV 88.5, MCH 30.2, MCHC 34.1, RDW Coeff of Todd 13.5, Plt Count 344, Immature Gran % (Auto ) 0.8, Neut % (Auto) 84.5, Lymph % (Auto) 5.0 L, [place] % (Auto) 9.4, Eos % (Auto ) 0.0, Baso % (Auto) 0.3, Immature Gran # (Auto) 0.2, Neut # 21.1 H, Lymph # 1.2 , [place] # 2.3 H, Eos # 0.0, Baso # 0.1, PT 15.3 H, INR 1.52, Sodium 136, Potassium 4.3, Chloride 97 L, Carbon Dioxide 26, Anion Gap 17.3, BUN 26 H, Creatinine 1.40 H, Estimated GFR (MDRD) 48.00, BUN/Creatinine Ratio 18.57, Glucose 115, Calcium 9.9, Total Bilirubin 0.76, AST 25, ALT 23, Alkaline Phosphatase 98, Total Protein 6.6, Albumin 3.3 L, Globulin 3.3, Albumin/ Globulin Ratio 1.00 ASSESSMENT: 1. Fever of unknown origin 2. Left clavicular fracture 3. Permanent pacemaker placement 4. Agitation- could be hospital psychosis mixed with early dementia 5. History of CVA 6. Anemia 7. Coronary artery disease 8. Chronic kidney disease PLAN: 1. 650 mg Tylenol now 2. blood cultures 3. UA 4. CT chest without 5. Start Rocephin 1 gm after blood cultures Plan and coordination of the patient's care discussed in the presence of Solar Power Installer and nurse. CONDITION: Stable SCRIBED BY: TRACY ROBISON Juvenile Probation Officer scribed while in presence of service performed by Dr. MICHELE DOWELL/JASMINA MCBRIDE APRN on 04/17/17 ([id number])
--- NOTE | 2017-04-17 13:28 | PN ---
DATE OF SERVICE: 04/16/17 - SWING BED SUBJECTIVE: The patient is looking a lot better. The hematoma on the upper one-third of the chest has completely subsided. The swelling is because of the fracture of sternal clavicular junction - clavicle bone; you can see swelling but practically not much tenderness. The patient has followup with orthopaedic surgeon. The patient wants to go home but according to physical therapy and nursing staff, the patient has made remarkable progress in his ambulation and overall status and they feel that there could be further improvement. The patient was advised to stay in the hospital to which he has agreed in the swing bed. The patient's appetite has improved. The is present as well as the son. PHYSICAL EXAMINATION: HEENT: Head normocephalic, atraumatic. Eyes: Extraocular muscles are intact. Pupils are equal, round and reactive to light and accommodation. Ears: No lesions. Nose appeared normal. Throat: No exudate or erythema. NECK: Supple. No JVD, no carotid bruit. No lymphadenopathy or thyromegaly. LUNGS: Decreased breath sounds but clear to auscultation. Percussion note normal. Chest symmetrical. HEART: S1, S2, no S3. No murmurs. No cyanosis or clubbing. No ascites. Pulses: Dorsalis pedis and posterior tibial pulses +1 to +2 both sides. ABDOMEN: Soft. Nontender. Bowel sounds active. No CVA tenderness. No mass felt. EXTREMITIES: No edema. Full range of motion of all extremities, equal. NEUROLOGIC: No focal deficit. Cranial nerves II through XII are grossly intact. No headache, no double vision or headache. SKIN: Not dry. Intact. Turgor - normal. LYMPHATIC: No palpable lymph nodes/no lymphedema. MUSCULOSKELETAL: Normal joints with no swelling. Muscle tone is normal. ASSESSMENT: His medical conditions are stable. Hemoglobin and hematocrit are stable. Appetite has increased. Mental status has improved remarkably. He is oriented to time, place and person. The patient was seen with nurse practitioner. TIME SPENT: More than 30 minutes. Plan and coordination of the patient's care discussed in the presence of nurse. RAULITO
[2017-04-17 16:31] LABS: BILIRUBIN,URINE 1+ (NEGATIVE); KETONES,URINE Trace (NEGATIVE); LEUKOCYTE ESTERASE ,URINE 1+ (NEGATIVE); NITRITE,URINE Negative (NEGATIVE); PROTEIN,URINE Trace (NEGATIVE); URINE, BLOOD Trace-intact (NEGATIVE)
[2017-04-17 16:52] LABS: ADD URINE MICROSCOPIC YES
[2017-04-17] MEDS: COUMADIN PO SCH (16:53)
[2017-04-17 16:57] LABS: BACTERIA,URINE 1+ (NOT PRESENT)
--- NOTE | 2017-04-17 17:32 | CT ---
Exam: CT of the chest without contrast History: Fever, cough and shortness of breath Technique: [address] of the chest without intravascular contrast FINDINGS: The lung windows show no infiltrative opacities. Trace dependent atelectasis. Heavy ath erosclerotic vascular calcifications of the aorta and coronary arteries. Prior median sternotomy. Left clavicular head fracture displaced about one half shaft width anteriorly. Associated surroundi ng soft tissue swelling. Right chest wall pacemaker. No acute findings of the upper abdomen. Impression: 1. Left medial clavicle fracture not seen on 01/06/2017. 2. No acute cardiopulmonary disease
[2017-04-17] MEDS: ZOCOR PO SCH (20:20)
[2017-04-18 05:13] LABS: BASOPHILS # (AUTO) 0.1 K/uL (0-0.2); BASOPHILS % (AUTO) 0.2 % (0.0-3.0); EOSINOPHILS # (AUTO) 0.1 K/ul (0.0-0.7); EOSINOPHILS % (AUTO) 0.2 % (0.0-7.0); HEMATOCRIT 30.3 % (42.0-52.0); HEMOGLOBIN 10.3 g/dl (14.0-18.0); IMMATURE GRANULOCYTE % (AUTO) 1.1 % (0.0-5.0); LYMPHOCYTES # (AUTO) 1.4 K/uL (0.60-3.4); LYMPHOCYTES % (AUTO) 5.7 (10.0-50.0); MEAN CORPUSCULAR HEMOGLOBIN 30.3 pg (27.0-31.0); MEAN CORPUSCULAR VOLUME 89.1 fl (80.0-94.0); MONOCYTES # (AUTO) 1.6 K/uL (0.4-2.0); MONOCYTES % (AUTO) 6.5 (0-10); NEUTROPHILS # (AUTO) 21.6 K/ul (2.0-6.9); NEUTROPHILS % (AUTO) 86.3; PLATELET COUNT 310 10^3/uL (140-440); WHITE BLOOD COUNT 25.08 K/ul (4.2-10.2)
[2017-04-18 05:23] LABS: PROTHROMBIN TIME 14.9 SEC (9.3-11.0)
[2017-04-18 05:39] LABS: ALBUMIN 2.8 g/dL (3.4-5.0); ALBUMIN/GLOBULIN RATIO 0.68; ANION GAP 15.9; BILIRUBIN,TOTAL 0.44 mg/dL (0.00-1.20); BUN/CREATININE RATIO 25.67; CALCIUM 9.3 mg/dL (8.2-10.2); CREATININE 1.48 mg/dL (0.60-1.10); POTASSIUM 3.9 mmol/L (3.5-5.1); TOTAL PROTEIN 6.9 g/dL (5.8-8.1)
[2017-04-18] MEDS: SYNTHROID PO SCH (05:46)
[2017-04-18] MEDS: LOVENOX SUBCUT SCH (08:12)
[2017-04-18] MEDS: FLOMAX PO SCH (08:13)
[2017-04-18] MEDS: BUMEX PO SCH (08:13)
[2017-04-18] MEDS: FLORASTOR PO SCH ×2 (08:13→21:17)
[2017-04-18] MEDS: WELCHOL PO SCH ×2 (08:13→16:30)
[2017-04-18] MEDS: TYLENOL PO SCH ×2 (08:13→21:18)
[2017-04-18] MEDS: LOPRESSOR PO SCH ×2 (08:14→16:31)
[2017-04-18] MEDS: ASPIRIN EC PO SCH (08:14)
[2017-04-18] MEDS: COZAAR PO SCH (08:14)
[2017-04-18] MEDS: CLOBETASOL PROPIONATE TP SCH (08:14)
[2017-04-18] MEDS: TACROLIMUS TP SCH ×2 (08:15→21:34)
[2017-04-18] MEDS: ROCEPHIN 1 GM in SODIUM CHLORIDE 50 ML IV SCH (08:16)
[2017-04-18] MEDS ORDERED: LIDOCAINE 1 % AMP 5 ML (SUTURES) IM SCH (09:00)
[2017-04-18] MEDS ORDERED: LIDOCAINE HCL 1% SDV IM ONE (09:00)
[2017-04-18] MEDS ORDERED: AZACTAM IM SCH ×3 (09:30→21:00)
[2017-04-18] MEDS: ROCEPHIN IM SCH (10:11)
--- NOTE | 2017-04-18 11:50 | PCM.PROG ---
Attending Provider: ATTENDING PROVIDER: Dr. MICHELE DOWELL DATE OF SERVICE: 04/18/17 SUBJECTIVE: This 82 year old WHITE/ M was hospitalized 04/05/17. The patient is hospitalized in swing bed with left clavicular fracture, pacemaker, hematoma resolved. The patient's doesn't want followup on clavicular fracture on left side. He doesn't seem to be in pain. The problem yesterday was fever with confusion and abnormal UA. This morning the patient is oriented times three, no distress, appropriate and alert. REVIEW OF SYSTEMS: CONSTITUTIONAL: No night sweats. No fatigue, malaise, lethargy. No fever or chills. HEENT: Eyes: No visual changes. No eye pain. No eye discharge. ENT: No runny nose. No epistaxis. No sinus pain. No odynophagia. No congestion. RESPIRATORY: No cough, no congestion. No hemoptysis. No shortness of breath. CARDIOVASCULAR: No angina symptoms. No CHF symptoms. No atypical chest pain for CAD. No palpitations. No orthopnea.. GASTROINTESTINAL: Poor appetite. No abdominal pain. No nausea or vomiting. No diarrhea or constipation. No hematemesis. No hematochezia. GENITOURINARY: No urgency. No frequency. No dysuria. No hematuria. No obstructive symptoms. No discharge. No pain. No significant abnormal bleeding. MUSCULOSKELETAL: No musculoskeletal pain; no joint swelling. NEUROLOGICAL: Awake, alert, oriented to time, place and person. No headache. No neck pain. No syncope. No seizures. No dizziness. PSYCHIATRIC: Not anxious. No depression. No suicidal thoughts. No homicidal thoughts. SKIN: No rash. No lesions. No wounds. ENDOCRINE: No unexplained weight loss. No weight gain. HEMATOLOGIC/LYMPHATIC: No anemia. No purpura. No petechiae. No prolonged or excessive bleeding. No palpable lymph nodes. PHYSICAL EXAMINATION: GENERAL: The patient is awake, alert and oriented, lying in bed in no distress. VITAL SIGNS: Temperature 97.0 F, Pulse 81, Respiratory Rate 20, BP 117/61, Pulse Ox 98% HEENT: Head normocephalic, atraumatic. Eyes: Extraocular muscles are intact. Pupils are equal, round and reactive to light and accommodation. Ears: No lesions. Nose appeared normal. Throat: No exudate or erythema. NECK: Supple. No JVD, no carotid bruit. No lymphadenopathy or thyromegaly. LUNGS: Clear to auscultation. Percussion note normal. Chest symmetrical. HEART: S1, S2, no S3. No murmurs. No cyanosis or clubbing. No ascites. Pulses: Dorsalis pedis and posterior tibial pulses +1 to +2 both sides. ABDOMEN: Soft. Non-tender. Bowel sounds active. No CVA tenderness. No mass felt. EXTREMITIES: No edema. Swelling of left sternal clavicular area noted from fracture not much tenderness there. NEUROLOGIC: No focal deficit. Cranial nerves II through XII are grossly intact. No headache, no double vision or headache. SKIN: Not dry. Intact. Turgor-normal. LYMPHATIC: No palpable lymph nodes/no lymphedema. MUSCULOSKELETAL: Normal joints with no swelling. Muscle tone is normal. LAB REVIEW: 04/18/17 05:11 04/18/17 05:11 04/18/17 05:11: WBC 25.08 H, RBC 3.40 L, Hgb 10.3 L, Hct 30.3 L, MCV 89.1, MCH 30.3, MCHC 34.0, RDW Coeff of Todd 13.8, Plt Count 310, Immature Gran % (Auto) 1.1, Neut % (Auto) 86.3, Lymph % (Auto) 5.7 L, [place] % (Auto) 6.5, Eos % (Auto) 0.2, Baso % (Auto) 0.2, Immature Gran # (Auto) 0.3, Neut # 21.6 H, Lymph # 1.4, [place] # 1.6, Eos # 0.1, Baso # 0.1, PT 14.9 H, INR 1.48, Sodium 134 L, Potassium 3.9, Chloride 98, Carbon Dioxide 24, Anion Gap 15.9, BUN 38 H, Creatinine 1.48 H , Estimated GFR (MDRD) 45.00, BUN/Creatinine Ratio 25.67, Glucose 102, Calcium 9.3, Total Bilirubin 0.44, AST 18, ALT 15, Alkaline Phosphatase 86, Total Protein 6.9, Albumin 2.8 L, Globulin 4.1, Albumin/Globulin Ratio 0.68 04/17/17 16:15: Urine Color Dark, Urine Clarity Cloudy, Urine pH 5.0, Ur Specific [place] 1.015, Urine Protein Trace, Urine Glucose (UA) Negative, Urine Ketones Trace, Urine Blood Trace-intact, Urine Nitrite Negative, Urine Bilirubin 1+, Urine Urobilinogen 0.2, Ur Leukocyte Esterase 1+, Urine Microscopic RBC 2-5, Urine Microscopic WBC 50-100, Ur Squamous Epith Cells Not present, Urine Bacteria 1+ ASSESSMENT: 1. The patient had mental status changes yesterday likely from UTI on Rocephin IM because he pulled IV out and has poor IV site. 2. Clavicular fracture 3. Pacemaker 4. Recurrent CVA 5. Carotid stenosis 6. Chronic kidney disease 7. Anemia PLAN: 1. Continue Rocephin 2. Continue to encourage fluid intake 3. PT to continue 4. Will hold CT scan of head for now Plan and coordination of the patient's care discussed in the presence of Hydrotel Operator and nurse. CONDITION: Stable SCRIBED BY: TRACY ROBISON Account General Manager scribed while in presence of service performed by Dr. MICHELE DOWELL on 04/18/17 (0800)
[2017-04-18] MEDS: COUMADIN PO SCH ×2 (16:31)
--- NOTE | 2017-04-18 16:43 | PN ---
Mr. Mcleod asks when he can go home. His feels she cannot handle him by herself at this time. He has been receiving Physical Therapy for education and independence with mobility, strengthening, and safety to decrease his risk for falls. He had progressed with all mobility and ambulation last week. He demonstrated increased ability to assist with transfers and progressed to ambulating 150 feet with a rolling walker, with improved balance. This week Mr. Mcleod has been more lethargic, even running a fever yesterday morning. He slept the majority of the day yesterday and his therapy was held for the day. Pt alert and oriented today and was able to participate with therapy. Patient on Rocephin for UTI. Today patient able to perform transfers with min to mod assist of 2. He ambulated 20 feet with min-mod assist and verbal cues. Decreased strength and endurance noted today with activity. Progress towards goals: Short Term Goals GOAL #1: supine to sit with mod asst of one. Goal to be met by: 04/12/17 Revise to 04/23/17 Progressing GOAL #2: Sit to stand with min-mod of one. Goal to be met by: 04/11/17 Revise to 04/23/17 Progressing GOAL #3: Pt to amb. with RW 30 feet with min A of one. Goal to be met by: 04/11/17 Revise to 04/23/17 Progressing Human Capital Consultant Goals GOAL #1: Patient independent in bed mobility. Bed mobility with min of one Goal to be met by: 04/21/17 Revise to 04/28/17 Patient sleeps in a lift chair at home. GOAL #2: All transfers independent with good safety. Goal to be met by: 04/21/17 Revise to 04/28/17 Progressing GOAL #3: Pt to amb. w/ RW household distances w/ good safety I. Goal to be met by: 04/21/17 Revise to 04/28/17 Progressing He demonstrates potential to meet his senior living goals for transfers and ambulation. He plans to sleep in a lift chair at home, so bed mobility Correction Goal modified. He will benefit from further strengthening and safety training to enable him to return home. Anticipate another 7-10 days of skilled care to gain increased independence and safety with all mobility. MTDD
[2017-04-18] MEDS ORDERED: COUMADIN PO SCH (17:00)
[2017-04-18] MEDS: AZACTAM IM SCH (21:18)
[2017-04-18] MEDS: ZOCOR PO SCH (21:18)
[2017-04-19 04:49] LABS: BASOPHILS % (AUTO) 0.3 % (0.0-3.0); EOSINOPHILS # (AUTO) 0.4 K/ul (0.0-0.7); EOSINOPHILS % (AUTO) 2.4 % (0.0-7.0); HEMATOCRIT 26.6 % (42.0-52.0); HEMOGLOBIN 8.9 g/dl (14.0-18.0); IMMATURE GRANULOCYTE % (AUTO) 0.5 % (0.0-5.0); LYMPHOCYTES # (AUTO) 1.5 K/uL (0.60-3.4); LYMPHOCYTES % (AUTO) 9.9 (10.0-50.0); MEAN CORPUSCULAR HEMOGLOBIN 30.4 pg (27.0-31.0); MEAN CORPUSCULAR HGB CONC 33.5 (31.8-35.4); MEAN CORPUSCULAR VOLUME 90.8 fl (80.0-94.0); MONOCYTES # (AUTO) 0.9 K/uL (0.4-2.0); MONOCYTES % (AUTO) 6.1 (0-10); NEUTROPHILS # (AUTO) 12.4 K/ul (2.0-6.9); NEUTROPHILS % (AUTO) 80.8; PLATELET COUNT 289 10^3/uL (140-440); RED BLOOD COUNT 2.93 10^6/ul (4.70-6.10)
[2017-04-19 05:06] LABS: PROTHROMBIN TIME 17.9 SEC (9.3-11.0)
[2017-04-19 05:11] LABS: ALBUMIN 2.8 g/dL (3.4-5.0); ALBUMIN/GLOBULIN RATIO 0.85; ANION GAP 14.8; BILIRUBIN,TOTAL 0.29 mg/dL (0.00-1.20); BUN/CREATININE RATIO 27.94; CALCIUM 9.3 mg/dL (8.2-10.2); CREATININE 1.36 mg/dL (0.60-1.10); POTASSIUM 3.8 mmol/L (3.5-5.1); TOTAL PROTEIN 6.1 g/dL (5.8-8.1)
[2017-04-19] MEDS: SYNTHROID PO SCH (06:16)
[2017-04-19] MEDS: FLORASTOR PO SCH ×2 (08:16→20:44)
[2017-04-19] MEDS: COZAAR PO SCH (08:16)
[2017-04-19] MEDS: ASPIRIN EC PO SCH (08:16)
[2017-04-19] MEDS: WELCHOL PO SCH ×2 (08:16→16:47)
[2017-04-19] MEDS: FLOMAX PO SCH (08:16)
[2017-04-19] MEDS: BUMEX PO SCH (08:17)
[2017-04-19] MEDS: LOPRESSOR PO SCH ×2 (08:17→16:47)
[2017-04-19] MEDS: ROCEPHIN IM SCH (08:17)
[2017-04-19] MEDS: AZACTAM IM SCH ×2 (08:18→20:43)
[2017-04-19] MEDS: CLOBETASOL PROPIONATE TP SCH (08:19)
[2017-04-19] MEDS: TYLENOL PO SCH ×2 (08:20→20:44)
[2017-04-19] MEDS: TACROLIMUS TP SCH ×2 (08:21→20:45)
--- NOTE | 2017-04-19 11:12 | PCM.PROG ---
Attending Provider: ATTENDING PROVIDER: Dr. MICHELE DOWELL DATE OF SERVICE: 04/19/17 SUBJECTIVE: This 82 year old WHITE/ M was hospitalized 04/05/17. The patient is seen with Jasmina, Nurse Practitioner. The patient is alert, sitting up in bed. Confusion is better today, no fever since yesterday. REVIEW OF SYSTEMS: CONSTITUTIONAL: Weakness, confusion. No night sweats. No fever or chills. HEENT: Eyes: No visual changes. No eye pain. No eye discharge. ENT: No runny nose. No epistaxis. No sinus pain. No odynophagia. No congestion. RESPIRATORY: No cough, no congestion. No hemoptysis. No shortness of breath. CARDIOVASCULAR: No angina symptoms. No CHF symptoms. No atypical chest pain for CAD. No palpitations. No orthopnea.. GASTROINTESTINAL: No abdominal pain. No nausea or vomiting. No diarrhea or constipation. No hematemesis. No hematochezia. GENITOURINARY: No urgency. No frequency. No dysuria. No hematuria. No obstructive symptoms. No discharge. No pain. No significant abnormal bleeding. MUSCULOSKELETAL: Clavicular pain. NEUROLOGICAL: Awake, alert, oriented to person and place this morning. No headache. No neck pain. No syncope. No seizures. No dizziness. PSYCHIATRIC: Not anxious. No depression. No suicidal thoughts. No homicidal thoughts. SKIN: Bruising to upper body. Pacemaker incision site healthy looking. ENDOCRINE: No unexplained weight loss. No weight gain. HEMATOLOGIC/LYMPHATIC: No purpura. No petechiae. No prolonged or excessive bleeding. No palpable lymph nodes. PHYSICAL EXAMINATION: GENERAL: The patient is awake, alert and oriented lying in bed in no distress. VITAL SIGNS: Temperature 97.7 F, Pulse 96, Respiratory Rate 18, BP 102/60, Pulse Ox 92% HEENT: Head normocephalic, atraumatic. Eyes: Extraocular muscles are intact. Pupils are equal, round and reactive to light and accommodation. Ears: No lesions. Nose appeared normal. Throat: No exudate or erythema. NECK: Supple. No JVD, no carotid bruit. No lymphadenopathy or thyromegaly. LUNGS: Diminished breath sounds bilaterally. Clear to auscultation. Percussion note normal. Chest symmetrical. HEART: S1, S2, no S3. No murmurs. No cyanosis or clubbing. No ascites. Pulses: Dorsalis pedis and posterior tibial pulses +1 to +2 both sides. ABDOMEN: Soft. Non-tender. Bowel sounds active. No CVA tenderness. No mass felt. EXTREMITIES: No edema. Full range of motion of all extremities, equal. NEUROLOGIC: No focal deficit. Cranial nerves II through XII are grossly intact. No headache, no double vision or headache. SKIN: Multiple bruises to upper body. Incision site no sign of infection. Turgor-normal. LYMPHATIC: No palpable lymph nodes/no lymphedema. MUSCULOSKELETAL: Normal joints with no swelling. Muscle tone is normal. LAB REVIEW: 04/19/17 04:30 04/19/17 04:30 04/19/17 04:30: WBC 15.40 H D, RBC 2.93 L, Hgb 8.9 L, Hct 26.6 L, MCV 90.8, MCH 30.4, MCHC 33.5, RDW Coeff of Todd 13.6, Plt Count 289, Immature Gran % (Auto) 0.5, Neut % (Auto) 80.8, Lymph % (Auto) 9.9 L, [place] % (Auto) 6.1, Eos % (Auto) 2.4, Baso % (Auto) 0.3, Immature Gran # (Auto) 0.1, Neut # 12.4 H, Lymph # 1.5, [place] # 0.9, Eos # 0.4, Baso # 0.0, PT 17.9 H, INR 1.78, Sodium 135 L, Potassium 3.8, Chloride 98, Carbon Dioxide 26, Anion Gap 14.8, BUN 38 H, Creatinine 1.36 H , Estimated GFR (MDRD) 50.00, BUN/Creatinine Ratio 27.94, Glucose 97, Calcium 9.3, Total Bilirubin 0.29, AST 16, ALT 12, Alkaline Phosphatase 84, Total Protein 6.1, Albumin 2.8 L, Globulin 3.3, Albumin/Globulin Ratio 0.85 ASSESSMENT: 1. Mental status change, improving 2. Clavicular fracture 3. Anemia 4. Pacemaker 5. Recurrent CVA 6. Carotid stenosis 7. Chronic kidney disease 8. Anemia PLAN: 1. CT scan of the head without contrast 2. Stool for occult blood 3. Will monitor patient closely 4. Continue IV antibiotics Plan and coordination of the patient's care discussed in the presence of Cigarette Lighter Repairer and nurse. CONDITION: Stable SCRIBED BY: TRACY ROBISON Direct Customer Service Representative scribed while in presence of service performed by Dr. MICHELE DOWELL/JASMINA MCBRIDE APRN on 04/19/17 (075)
--- NOTE | 2017-04-19 15:47 | CT ---
EXAM: CT head without contrast HISTORY: Mental status change and drowsiness COMPARISON: CT head 01/07/2017 and multiple priors TECHNIQUE: Serial axial images of the brain were obtained from the skull base to the vertex without IV contrast. FINDINGS: The ventricles, cisterns and sulci demonstrate moderate generalized volume loss. The huang -white matter junction is maintained. There is scattered low attenuation in the periventricular whi te matter. There are are lacunar infarcts.No midline shift or mass is identified. There is no abno rmal intra or extra-axial fluid collection. The paranasal sinuses demonstrate paranasal sinus thick ening and opacification of the left maxillary sinus with hyperostosis. The mastoid air cells are cl ear. The osseous calvarium is intact. IMPRESSION: 1. No acute intracranial abnormality or hemorrhage. If further evaluation is indicated, MRI may be obtained. 2. Unchanged microangiopathy and generalized volume loss. 3. 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
[2017-04-19] MEDS: COUMADIN PO SCH ×2 (16:48)
[2017-04-19] MEDS: ZOCOR PO SCH (20:44)
[2017-04-20 04:54] LABS: BASOPHILS # (AUTO) 0.1 K/uL (0-0.2); BASOPHILS % (AUTO) 0.7 % (0.0-3.0); EOSINOPHILS # (AUTO) 0.5 K/ul (0.0-0.7); EOSINOPHILS % (AUTO) 4.5 % (0.0-7.0); HEMATOCRIT 29.3 % (42.0-52.0); HEMOGLOBIN 9.7 g/dl (14.0-18.0); IMMATURE GRANULOCYTE % (AUTO) 0.6 % (0.0-5.0); LYMPHOCYTES # (AUTO) 1.6 K/uL (0.60-3.4); LYMPHOCYTES % (AUTO) 15.5 (10.0-50.0); MEAN CORPUSCULAR HEMOGLOBIN 30.1 pg (27.0-31.0); MEAN CORPUSCULAR HGB CONC 33.1 (31.8-35.4); MONOCYTES # (AUTO) 0.7 K/uL (0.4-2.0); MONOCYTES % (AUTO) 7.4 (0-10); NEUTROPHILS # (AUTO) 7.2 K/ul (2.0-6.9); NEUTROPHILS % (AUTO) 71.3; PLATELET COUNT 295 10^3/uL (140-440); RED BLOOD COUNT 3.22 10^6/ul (4.70-6.10); WHITE BLOOD COUNT 10.02 K/ul (4.2-10.2)
[2017-04-20 05:22] LABS: ALBUMIN 2.7 g/dL (3.4-5.0); ALBUMIN/GLOBULIN RATIO 0.79; ANION GAP 13.9; BILIRUBIN,TOTAL 0.26 mg/dL (0.00-1.20); BUN/CREATININE RATIO 29.92; CALCIUM 9.2 mg/dL (8.2-10.2); CREATININE 1.27 mg/dL (0.60-1.10); POTASSIUM 3.9 mmol/L (3.5-5.1); TOTAL PROTEIN 6.1 g/dL (5.8-8.1)
[2017-04-20] MEDS: SYNTHROID PO SCH (05:46)
[2017-04-20] MEDS: ASPIRIN EC PO SCH (08:33)
[2017-04-20] MEDS: FLOMAX PO SCH (08:34)
[2017-04-20] MEDS: TYLENOL PO SCH ×2 (08:34→21:00)
[2017-04-20] MEDS: LOPRESSOR PO SCH ×2 (08:34→16:30)
[2017-04-20] MEDS: WELCHOL PO SCH ×2 (08:34→16:30)
[2017-04-20] MEDS: AZACTAM IM SCH ×2 (08:34→21:00)
[2017-04-20] MEDS: COZAAR PO SCH (08:34)
[2017-04-20] MEDS: BUMEX PO SCH (08:34)
[2017-04-20] MEDS: FLORASTOR PO SCH ×2 (08:34→20:59)
[2017-04-20] MEDS: ROCEPHIN IM SCH (08:35)
[2017-04-20] MEDS: TACROLIMUS TP SCH ×2 (08:36→21:01)
[2017-04-20] MEDS: CLOBETASOL PROPIONATE TP SCH (08:36)
--- NOTE | 2017-04-20 13:11 | PN ---
DATE OF SERVICE: 04/19/17 SUBJECTIVE: The patient was seen with Nurse Practitioner. The patient is an 82 year old white male hospitalized with left clavicular fracture and pacemaker placement. The patient had hematoma involving the upper 1/3 of the chest which is completely resolved. Swelling of the left sternal clavicular area is still there which is mostly nontender. The patient's mental status has improved. He is alert and doing his physical therapy now. The patient had a couple of days where he laid around likely from fever with urinary tract infection being treated with Rocephin and Azactam. The patient's hgb is 8.9 and will follow the hgb and hct, creatinine and BUN is steady but better. CONDITION: Stable. TIME SPENT: More than 30 minutes. Plan and coordination of the patient's care discussed in the presence of nurse. RAULITO
[2017-04-20] MEDS: COUMADIN PO SCH (16:30)
[2017-04-20] MEDS: ZOCOR PO SCH (20:59)
[2017-04-21 04:48] LABS: BASOPHILS # (AUTO) 0.1 K/uL (0-0.2); BASOPHILS % (AUTO) 0.8 % (0.0-3.0); EOSINOPHILS # (AUTO) 0.5 K/ul (0.0-0.7); HEMATOCRIT 29.5 % (42.0-52.0); HEMOGLOBIN 9.9 g/dl (14.0-18.0); IMMATURE GRANULOCYTE % (AUTO) 0.5 % (0.0-5.0); LYMPHOCYTES # (AUTO) 1.4 K/uL (0.60-3.4); LYMPHOCYTES % (AUTO) 17.7 (10.0-50.0); MEAN CORPUSCULAR HEMOGLOBIN 30.3 pg (27.0-31.0); MEAN CORPUSCULAR HGB CONC 33.6 (31.8-35.4); MEAN CORPUSCULAR VOLUME 90.2 fl (80.0-94.0); MONOCYTES # (AUTO) 0.5 K/uL (0.4-2.0); MONOCYTES % (AUTO) 6.6 (0-10); NEUTROPHILS # (AUTO) 5.2 K/ul (2.0-6.9); NEUTROPHILS % (AUTO) 68.4; PLATELET COUNT 291 10^3/uL (140-440); RED BLOOD COUNT 3.27 10^6/ul (4.70-6.10); WHITE BLOOD COUNT 7.62 K/ul (4.2-10.2)
[2017-04-21 04:57] LABS: PROTHROMBIN TIME 27.9 SEC (9.3-11.0)
[2017-04-21 05:03] LABS: ALBUMIN 2.8 g/dL (3.4-5.0); ALBUMIN/GLOBULIN RATIO 0.85; ANION GAP 15.1; BILIRUBIN,TOTAL 0.24 mg/dL (0.00-1.20); BUN/CREATININE RATIO 28.2; CALCIUM 9.3 mg/dL (8.2-10.2); CREATININE 1.17 mg/dL (0.60-1.10); POTASSIUM 4.1 mmol/L (3.5-5.1); TOTAL PROTEIN 6.1 g/dL (5.8-8.1)
[2017-04-21] MEDS: SYNTHROID PO SCH (05:31)
[2017-04-21] MEDS: ASPIRIN EC PO SCH (09:06)
[2017-04-21] MEDS: FLOMAX PO SCH (09:07)
[2017-04-21] MEDS: WELCHOL PO SCH ×2 (09:07→17:06)
[2017-04-21] MEDS: BUMEX PO SCH (09:07)
[2017-04-21] MEDS: TYLENOL PO SCH ×2 (09:07→20:57)
[2017-04-21] MEDS: CLOBETASOL PROPIONATE TP SCH (09:07)
[2017-04-21] MEDS: FLORASTOR PO SCH ×2 (09:07→20:58)
[2017-04-21] MEDS: LOPRESSOR PO SCH ×2 (09:07→17:06)
[2017-04-21] MEDS: COZAAR PO SCH (09:07)
[2017-04-21] MEDS: ROCEPHIN IM SCH (09:08)
[2017-04-21] MEDS: TACROLIMUS TP SCH ×2 (09:09→20:58)
[2017-04-21] MEDS: LIDOCAINE 1 % AMP 5 ML (SUTURES) IM SCH (09:09)
[2017-04-21] MEDS: COUMADIN PO SCH (17:06)
[2017-04-21] MEDS: ZOCOR PO SCH (20:58)
[2017-04-22 04:56] LABS: BASOPHILS # (AUTO) 0.1 K/uL (0-0.2); BASOPHILS % (AUTO) 0.6 % (0.0-3.0); EOSINOPHILS # (AUTO) 0.5 K/ul (0.0-0.7); EOSINOPHILS % (AUTO) 6.4 % (0.0-7.0); HEMOGLOBIN 9.8 g/dl (14.0-18.0); IMMATURE GRANULOCYTE % (AUTO) 1.3 % (0.0-5.0); LYMPHOCYTES # (AUTO) 1.6 K/uL (0.60-3.4); LYMPHOCYTES % (AUTO) 20.4 (10.0-50.0); MEAN CORPUSCULAR HEMOGLOBIN 29.5 pg (27.0-31.0); MEAN CORPUSCULAR HGB CONC 32.7 (31.8-35.4); MEAN CORPUSCULAR VOLUME 90.4 fl (80.0-94.0); MONOCYTES # (AUTO) 0.8 K/uL (0.4-2.0); MONOCYTES % (AUTO) 9.5 (0-10); NEUTROPHILS # (AUTO) 4.9 K/ul (2.0-6.9); NEUTROPHILS % (AUTO) 61.8; PLATELET COUNT 297 10^3/uL (140-440); RED BLOOD COUNT 3.32 10^6/ul (4.70-6.10); WHITE BLOOD COUNT 7.93 K/ul (4.2-10.2)
[2017-04-22 05:06] LABS: PROTHROMBIN TIME 26.8 SEC (9.3-11.0)
[2017-04-22 05:19] LABS: ALBUMIN 2.9 g/dL (3.4-5.0); ALBUMIN/GLOBULIN RATIO 0.85; ANION GAP 11.1; BILIRUBIN,TOTAL 0.27 mg/dL (0.00-1.20); BUN/CREATININE RATIO 25.47; CALCIUM 9.4 mg/dL (8.2-10.2); CREATININE 1.06 mg/dL (0.60-1.10); POTASSIUM 4.1 mmol/L (3.5-5.1); TOTAL PROTEIN 6.3 g/dL (5.8-8.1)
[2017-04-22] MEDS: SYNTHROID PO SCH (06:20)
[2017-04-22] MEDS: ASPIRIN EC PO SCH (09:04)
[2017-04-22] MEDS: BUMEX PO SCH (09:06)
[2017-04-22] MEDS: WELCHOL PO SCH ×2 (09:06→17:19)
[2017-04-22] MEDS: FLOMAX PO SCH (09:07)
[2017-04-22] MEDS: TYLENOL PO SCH ×2 (09:07→20:06)
[2017-04-22] MEDS: FLORASTOR PO SCH ×2 (09:07→20:06)
[2017-04-22] MEDS: ROCEPHIN IM SCH (09:08)
[2017-04-22] MEDS: CLOBETASOL PROPIONATE TP SCH (09:08)
[2017-04-22] MEDS: LIDOCAINE 1 % AMP 5 ML (SUTURES) IM SCH (09:09)
[2017-04-22] MEDS: COZAAR PO SCH (09:10)
[2017-04-22] MEDS: TACROLIMUS TP SCH ×2 (09:11→20:07)
[2017-04-22] MEDS: LOPRESSOR PO SCH ×2 (09:11→17:19)
[2017-04-22] MEDS: ANTIVERT PO PRN (09:59)
[2017-04-22] MEDS: COUMADIN PO SCH (17:20)
[2017-04-22] MEDS: ZOCOR PO SCH (20:07)
[2017-04-23 05:22] LABS: BASOPHILS # (AUTO) 0.1 K/uL (0-0.2); BASOPHILS % (AUTO) 0.6 % (0.0-3.0); EOSINOPHILS # (AUTO) 0.5 K/ul (0.0-0.7); EOSINOPHILS % (AUTO) 5.5 % (0.0-7.0); HEMATOCRIT 29.2 % (42.0-52.0); HEMOGLOBIN 9.6 g/dl (14.0-18.0); IMMATURE GRANULOCYTE % (AUTO) 1.3 % (0.0-5.0); LYMPHOCYTES # (AUTO) 1.6 K/uL (0.60-3.4); LYMPHOCYTES % (AUTO) 17.1 (10.0-50.0); MEAN CORPUSCULAR HEMOGLOBIN 29.9 pg (27.0-31.0); MEAN CORPUSCULAR HGB CONC 32.9 (31.8-35.4); MONOCYTES # (AUTO) 0.9 K/uL (0.4-2.0); MONOCYTES % (AUTO) 9.8 (0-10); NEUTROPHILS # (AUTO) 6.1 K/ul (2.0-6.9); NEUTROPHILS % (AUTO) 65.7; PLATELET COUNT 289 10^3/uL (140-440); RED BLOOD COUNT 3.21 10^6/ul (4.70-6.10); WHITE BLOOD COUNT 9.31 K/ul (4.2-10.2)
[2017-04-23] MEDS: SYNTHROID PO SCH (05:33)
[2017-04-23 05:36] LABS: PROTHROMBIN TIME 24.7 SEC (9.3-11.0)
[2017-04-23 05:46] LABS: ALBUMIN 2.8 g/dL (3.4-5.0); ALBUMIN/GLOBULIN RATIO 0.88; ANION GAP 16.5; BILIRUBIN,TOTAL 0.22 mg/dL (0.00-1.20); BUN/CREATININE RATIO 28.68; CALCIUM 9.3 mg/dL (8.2-10.2); CREATININE 1.29 mg/dL (0.60-1.10); POTASSIUM 4.5 mmol/L (3.5-5.1)
[2017-04-23] MEDS: TACROLIMUS TP SCH ×2 (09:04→20:31)
[2017-04-23] MEDS: ASPIRIN EC PO SCH (09:06)
[2017-04-23] MEDS: KEFLEX PO SCH ×3 (09:06→20:30)
[2017-04-23] MEDS: WELCHOL PO SCH ×2 (09:06→17:27)
[2017-04-23] MEDS: LOPRESSOR PO SCH ×2 (09:07→17:27)
[2017-04-23] MEDS: COZAAR PO SCH (09:07)
[2017-04-23] MEDS: BUMEX PO SCH (09:08)
[2017-04-23] MEDS: FLOMAX PO SCH (09:08)
[2017-04-23] MEDS: FLORASTOR PO SCH ×2 (09:08→20:31)
[2017-04-23] MEDS: TYLENOL PO SCH ×2 (09:08→20:31)
[2017-04-23] MEDS: CLOBETASOL PROPIONATE TP SCH (09:09)
--- NOTE | 2017-04-23 09:26 | PCM.PROG ---
Attending Provider: ATTENDING PROVIDER: Dr. MICHELE DOWELL DATE OF SERVICE: 04/23/17 SUBJECTIVE: This 82 year old WHITE/ M was hospitalized 04/05/17. The patient is seen with Jasmina, Nurse Practitioner. He is lying in bed, alert, states he was up walking over the weekend. REVIEW OF SYSTEMS: CONSTITUTIONAL: Weakness. No night sweats. No fever or chills. HEENT: Eyes: No visual changes. No eye pain. No eye discharge. ENT: No runny nose. No epistaxis. No sinus pain. No odynophagia. No congestion. RESPIRATORY: No cough, no congestion. No hemoptysis. No shortness of breath. CARDIOVASCULAR: No angina symptoms. No CHF symptoms. No atypical chest pain for CAD. No palpitations. No orthopnea.. GASTROINTESTINAL: No abdominal pain. No nausea or vomiting. No diarrhea or constipation. No hematemesis. No hematochezia. GENITOURINARY: No urgency. No frequency. No dysuria. No hematuria. No obstructive symptoms. No discharge. No pain. No significant abnormal bleeding. MUSCULOSKELETAL: Left clavicle pain. NEUROLOGICAL: Awake, alert, oriented to time, place and person. No headache. No neck pain. No syncope. No seizures. No dizziness. PSYCHIATRIC: Not anxious. No depression. No suicidal thoughts. No homicidal thoughts. SKIN: No rash. No lesions. ENDOCRINE: No unexplained weight loss. No weight gain. HEMATOLOGIC/LYMPHATIC: No anemia. No purpura. No petechiae. No prolonged or excessive bleeding. No palpable lymph nodes. PHYSICAL EXAMINATION: GENERAL: The patient is awake, alert and oriented, lying in bed in no distress. VITAL SIGNS: Temperature 98.7 F, Pulse 92, Respiratory Rate 16, BP 94/58, Pulse Ox 96% HEENT: Head normocephalic, atraumatic. Eyes: Extraocular muscles are intact. Pupils are equal, round and reactive to light and accommodation. Ears: No lesions. Nose appeared normal. Throat: No exudate or erythema. NECK: Supple. No JVD, no carotid bruit. No lymphadenopathy or thyromegaly. LUNGS: Diminished breath sounds bilaterally. Clear to auscultation. Percussion note normal. Chest symmetrical. HEART: S1, S2, no S3. No murmurs. No cyanosis or clubbing. No ascites. Pulses: Dorsalis pedis and posterior tibial pulses +1 to +2 both sides. ABDOMEN: Soft. Non-tender. Bowel sounds active. No CVA tenderness. No mass felt. EXTREMITIES: No edema. Full range of motion of all extremities, equal. NEUROLOGIC: No focal deficit. Cranial nerves II through XII are grossly intact. No headache, no double vision or headache. SKIN: Bruising is improving; incision site clean and dry with no drainage. LYMPHATIC: No palpable lymph nodes/no lymphedema. MUSCULOSKELETAL: Normal joints with no swelling. Muscle tone is normal. LAB REVIEW: 04/23/17 05:12 04/23/17 05:12 04/23/17 05:12: WBC 9.31, RBC 3.21 L, Hgb 9.6 L, Hct 29.2 L, MCV 91.0, MCH 29.9 , MCHC 32.9, RDW Coeff of Todd 13.6, Plt Count 289, Immature Gran % (Auto) 1.3, Neut % (Auto) 65.7, Lymph % (Auto) 17.1, [place] % (Auto) 9.8, Eos % (Auto) 5.5, Baso % (Auto) 0.6, Immature Gran # (Auto) 0.1, Neut # 6.1, Lymph # 1.6, [place] # 0.9, Eos # 0.5, Baso # 0.1, PT 24.7 H, INR 2.49, Sodium 139, Potassium 4.5, Chloride 100, Carbon Dioxide 27, Anion Gap 16.5, BUN 37 H, Creatinine 1.29 H, Estimated GFR (MDRD) 53.00, BUN/Creatinine Ratio 28.68, Glucose 98, Calcium 9.3 , Total Bilirubin 0.22, AST 14 L, ALT 12, Alkaline Phosphatase 96, Total Protein 6.0, Albumin 2.8 L, Globulin 3.2, Albumin/Globulin Ratio 0.88 ASSESSMENT: 1. Mental status change, resolved 2. Clavicular fracture 3. Anemia 4. Pacemaker 5. Recurrent CVA 6. Carotid stenosis 7. Chronic kidney disease PLAN: 1. Continue PT 2. Stop Rocephin 3. Keflex 500 t.i.d. times one week 4. Resume Coumadin 4 mg daily Plan and coordination of the patient's care discussed in the presence of Area Coordinator and nurse. CONDITION: Stable SCRIBED BY: TRACY ROBISON, And Rescue Fire Fighter Crash Fire scribed while in presence of service performed by Dr. MICHELE DOWELL/JASMINA MCBRIDE APRN on 04/23/17 (0800)
[2017-04-23] MEDS: LIDOCAINE 1 % AMP 5 ML (SUTURES) IM SCH (10:47)
--- NOTE | 2017-04-23 11:23 | PN ---
DATE OF SERVICE: 04/14/17 - SWING BED SUBJECTIVE: The patient is awake, feeling better, oriented to time, place and person. The patient's condition is stabilizing. He is walking around, progressing very well. REVIEW OF SYSTEMS: CONSTITUTIONAL: No night sweats. No fatigue, malaise, lethargy. No fever or chills. HEENT: Eyes: No visual changes. No eye pain. No eye discharge. ENT: No runny nose. No epistaxis. No sinus pain. No sore throat. No odynophagia. No congestion. RESPIRATORY: No cough, no congestion. No hemoptysis. No shortness of breath. CARDIOVASCULAR: No angina symptoms. No CHF symptoms. No atypical chest pain for CAD. No palpitations. No orthopnea. GASTROINTESTINAL: No abdominal pain. No nausea or vomiting. No diarrhea or constipation. No hematemesis. No hematochezia. GENITOURINARY: No urgency. No frequency. No dysuria. No hematuria. No obstructive symptoms. No discharge. No pain. No significant abnormal bleeding. MUSCULOSKELETAL: No musculoskeletal pain; no joint swelling. NEUROLOGICAL: No headache. No neck pain. No syncope. No seizures. No dizziness. PSYCHIATRIC: Not anxious. No depression. No suicidal thoughts. No homicidal thoughts. SKIN: No rash. No lesions. No wounds. ENDOCRINE: No unexplained weight loss. No weight gain. HEMATOLOGIC/LYMPHATIC: No anemia. No purpura. No petechiae. No prolonged or excessive bleeding. No palpable lymph nodes. PHYSICAL EXAMINATION: HEENT: Head normocephalic, atraumatic. Eyes: Extraocular muscles are intact. Pupils are equal, round and reactive to light and accommodation. Ears: No lesions. Nose appeared normal. Throat: No exudate or erythema. NECK: Supple. No JVD, no carotid bruit. No lymphadenopathy or thyromegaly. LUNGS: Clear to auscultation. Percussion note normal. Chest symmetrical. HEART: S1, S2, no S3. No murmurs. No cyanosis or clubbing. No ascites. Pulses: Dorsalis pedis and posterior tibial pulses +1 to +2 both sides. ABDOMEN: Soft. Nontender. Bowel sounds active. No CVA tenderness. No mass felt. EXTREMITIES: No edema. Moving both upper extremities. No hematoma noted. NEUROLOGIC: No focal deficit. Cranial nerves II through XII are grossly intact. No headache, no double vision or headache. SKIN: Not dry. Intact. Turgor - normal. LYMPHATIC: No palpable lymph nodes/no lymphedema. MUSCULOSKELETAL: Normal joints with no swelling. Muscle tone is normal. Stable TIME SPENT: More than 30 minutes. Plan and coordination of the patient's care discussed in the presence of nurse. RAULITO
--- NOTE | 2017-04-23 11:50 | PN ---
DATE OF SERVICE: 04/20/17 - SWING BED SUBJECTIVE: The patient is in the swing bed. The patient had CT scan of the head done which was practically negative for any acute findings. The patient's hemoglobin and hematocrit have improved from yesterday. No evidence of any active GI bleed. PHYSICAL EXAMINATION: HEENT: Head normocephalic, atraumatic. Eyes: Extraocular muscles are intact. Pupils are equal, round and reactive to light and accommodation. Ears: No lesions. Nose appeared normal. Throat: No exudate or erythema. NECK: Supple. No JVD, no carotid bruit. No lymphadenopathy or thyromegaly. LUNGS: Clear to auscultation. Percussion note normal. Chest symmetrical. HEART: S1, S2, no S3. No murmurs. No cyanosis or clubbing. No hematoma noted on the chest. No ascites. Pulses: Dorsalis pedis and posterior tibial pulses + 1 to +2 both sides. ABDOMEN: Soft. Nontender. Bowel sounds active. No CVA tenderness. No mass felt. EXTREMITIES: No edema. Full range of motion of all extremities, equal. NEUROLOGIC: No focal deficit. Cranial nerves II through XII are grossly intact. No headache, no double vision or headache. SKIN: Not dry. Intact. Turgor - normal. LYMPHATIC: No palpable lymph nodes/no lymphedema. MUSCULOSKELETAL: Normal joints with no swelling. Muscle tone is normal. CONDITION: Stable. The patient is progressing well with physical therapy. The patient will be encouraged for physical therapy on a continuous basis. He is not a willing participant. The patient is agreeable for the patient to continue to be in the swing bed as he is progressing well. TIME SPENT: More than 30 minutes. Plan and coordination of the patient's care discussed in the presence of nurse. RAULITO
--- NOTE | 2017-04-23 14:40 | PN ---
DATE OF SERVICE: 04/22/17 SUBJECTIVE: 82-year-old white male in the swing bed doing well. He seems to be gaining strength. Appetite is better. The patient's hemoglobin and hematocrit is stable. The patient does not have any symptoms of CHF. No fever, no chills. The patient is on IV antibiotics for urinary tract infection. Also, pacemaker seems to be capturing and sensing well and will discontinue his telemetry REVIEW OF SYSTEMS: CONSTITUTIONAL: No night sweats. No fatigue, malaise, lethargy. No fever or chills. HEENT: Eyes: No visual changes. No eye pain. No eye discharge. ENT: No runny nose. No epistaxis. No sinus pain. No sore throat. No odynophagia. No congestion. RESPIRATORY: No cough, no congestion. No hemoptysis. No shortness of breath. CARDIOVASCULAR: No angina symptoms. No CHF symptoms. No atypical chest pain for CAD. No palpitations. No orthopnea. GASTROINTESTINAL: Appetite is beet ter. No abdominal pain. No nausea or vomiting. No diarrhea or constipation. No hematemesis. No hematochezia. GENITOURINARY: No urgency. No frequency. No dysuria. No hematuria. No obstructive symptoms. No discharge. No pain. No significant abnormal bleeding. MUSCULOSKELETAL: No musculoskeletal pain; no joint swelling. NEUROLOGICAL: No headache. No neck pain. No syncope. No seizures. No dizziness. PSYCHIATRIC: Not anxious. No depression. No suicidal thoughts. No homicidal thoughts. SKIN: No rash. No lesions. No wounds. ENDOCRINE: No unexplained weight loss. No weight gain. HEMATOLOGIC/LYMPHATIC: No anemia. No purpura. No petechiae. No prolonged or excessive bleeding. No palpable lymph nodes. PHYSICAL EXAMINATION: GENERAL: The patient is oriented to time, place and person. VITAL SIGNS: Temperature 97.9, pulse 72/min, respiratory rate 20. BP 106/70. Pulse ox 97%. HEENT: Head normocephalic, atraumatic. Eyes: Extraocular muscles are intact. Pupils are equal, round and reactive to light and accommodation. Ears: No lesions. Nose appeared normal. Throat: No exudate or erythema. NECK: Supple. No JVD, no carotid bruit. No lymphadenopathy or thyromegaly. LUNGS: Decreased breath sounds but clear to auscultation. Percussion note normal. Chest symmetrical. HEART: S1, S2, no S3. No murmurs. No cyanosis or clubbing. No ascites. Pulses: Dorsalis pedis and posterior tibial pulses +1 to +2 both sides. ABDOMEN: Soft. Nontender. Bowel sounds active. No CVA tenderness. No mass felt. EXTREMITIES: No edema. Full range of motion of all extremities, equal. NEUROLOGIC: No focal deficit. Cranial nerves II through XII are grossly intact. No headache, no double vision or headache. SKIN: Not dry. Intact. Turgor - normal. LYMPHATIC: No palpable lymph nodes/no lymphedema. MUSCULOSKELETAL: Normal joints with no swelling. Muscle tone is normal. LABS: Hemoglobin 9.8, hematocrit 30, WBC 7,900, normal differential. Creatinine 1, BUN 27, potassium 4.1. INR 2.7 so we will hold his Coumadin today. ASSESSMENT/PLAN: 1. The patient's medical conditions are stable like pacemaker, fracture of the left sternal clavicular area. 2. Urinary tract infection is stable 3. Mental status is stable. 4. Will continue to push patient for physical therapy. 5. Hold Coumadin today. CONDITION: Improving. TIME SPENT: More than 30 minutes. Plan and coordination of the patient's care discussed in the presence of nurse. RAULITO
[2017-04-23] MEDS: COUMADIN PO SCH (17:27)
[2017-04-23] MEDS: ZOCOR PO SCH (20:31)
[2017-04-24 05:04] LABS: BASOPHILS # (AUTO) 0.1 K/uL (0-0.2); BASOPHILS % (AUTO) 0.9 % (0.0-3.0); EOSINOPHILS # (AUTO) 0.6 K/ul (0.0-0.7); EOSINOPHILS % (AUTO) 7.8 % (0.0-7.0); HEMATOCRIT 30.9 % (42.0-52.0); HEMOGLOBIN 10.1 g/dl (14.0-18.0); IMMATURE GRANULOCYTE % (AUTO) 1.8 % (0.0-5.0); LYMPHOCYTES # (AUTO) 1.6 K/uL (0.60-3.4); LYMPHOCYTES % (AUTO) 21.2 (10.0-50.0); MEAN CORPUSCULAR HEMOGLOBIN 29.6 pg (27.0-31.0); MEAN CORPUSCULAR HGB CONC 32.7 (31.8-35.4); MEAN CORPUSCULAR VOLUME 90.6 fl (80.0-94.0); MONOCYTES # (AUTO) 0.8 K/uL (0.4-2.0); MONOCYTES % (AUTO) 10.8 (0-10); NEUTROPHILS # (AUTO) 4.4 K/ul (2.0-6.9); NEUTROPHILS % (AUTO) 57.5; PLATELET COUNT 312 10^3/uL (140-440); RED BLOOD COUNT 3.41 10^6/ul (4.70-6.10)
[2017-04-24 05:19] LABS: PROTHROMBIN TIME 18.3 SEC (9.3-11.0)
[2017-04-24 05:26] LABS: ALBUMIN/GLOBULIN RATIO 0.94; ANION GAP 14.3; BILIRUBIN,TOTAL 0.33 mg/dL (0.00-1.20); BUN/CREATININE RATIO 27.11; CALCIUM 9.4 mg/dL (8.2-10.2); CREATININE 1.18 mg/dL (0.60-1.10); POTASSIUM 4.3 mmol/L (3.5-5.1); TOTAL PROTEIN 6.2 g/dL (5.8-8.1)
[2017-04-24] MEDS: SYNTHROID PO SCH (05:30)
[2017-04-24] MEDS: KEFLEX PO SCH ×3 (05:30→20:27)
[2017-04-24] MEDS ORDERED: MILK OF MAGNESIA PO STA (08:01)
[2017-04-24] MEDS: FLORASTOR PO SCH ×2 (08:36→20:27)
[2017-04-24] MEDS: CLOBETASOL PROPIONATE TP SCH (08:36)
[2017-04-24] MEDS: WELCHOL PO SCH ×2 (08:36→16:30)
[2017-04-24] MEDS: FLOMAX PO SCH (08:37)
[2017-04-24] MEDS: COZAAR PO SCH (08:37)
[2017-04-24] MEDS: ASPIRIN EC PO SCH (08:37)
[2017-04-24] MEDS: BUMEX PO SCH (08:37)
[2017-04-24] MEDS: TYLENOL PO SCH ×2 (08:37→20:27)
[2017-04-24] MEDS: LOPRESSOR PO SCH ×2 (08:37→16:30)
[2017-04-24] MEDS: TACROLIMUS TP SCH ×2 (08:38→20:28)
[2017-04-24 14:15] LABS: OCCULT BLOOD INTERNAL QC 1 INTERNAL QC VALID; OCCULT BLOOD SAMPLE 1 NEGATIVE (NEGATIVE)
--- NOTE | 2017-04-24 15:02 | PN ---
DATE OF SERVICE: 04/24/17 SUBJECTIVE: 82 year old white male in the swing bed. The patient's condition has improved. He is getting stronger. Appetite has improved. No pain in the sternal clavicle area. Pacemaker capturing and sensing well. REVIEW OF SYSTEMS: CONSTITUTIONAL: No night sweats. No fatigue, malaise, lethargy. No fever or chills. HEENT: Eyes: No visual changes. No eye pain. No eye discharge. ENT: No runny nose. No epistaxis. No sinus pain. No sore throat. No odynophagia. No congestion. RESPIRATORY: No cough, no congestion. No hemoptysis. No shortness of breath. CARDIOVASCULAR: No angina symptoms. No CHF symptoms. No atypical chest pain for CAD. No palpitations. No orthopnea. GASTROINTESTINAL: No abdominal pain. No nausea or vomiting. No diarrhea or constipation. No hematemesis. No hematochezia. GENITOURINARY: No urgency. No frequency. No dysuria. No hematuria. No obstructive symptoms. No discharge. No pain. No significant abnormal bleeding. MUSCULOSKELETAL: No musculoskeletal pain; no joint swelling. NEUROLOGICAL: No headache. No neck pain. No syncope. No seizures. No dizziness. PSYCHIATRIC: Not anxious. No depression. No suicidal thoughts. No homicidal thoughts. SKIN: No rash. No lesions. No wounds. ENDOCRINE: No unexplained weight loss. No weight gain. HEMATOLOGIC/LYMPHATIC: No anemia. No purpura. No petechiae. No prolonged or excessive bleeding. No palpable lymph nodes. PHYSICAL EXAMINATION: GENERAL: The patient is in no distress. VITAL SIGNS: Temperature 98.1, pulse 80, respiratory rate 20, blood pressure 127/70, pulse ox 96%. HEENT: Head normocephalic, atraumatic. Eyes: Extraocular muscles are intact. Pupils are equal, round and reactive to light and accommodation. Ears: No lesions. Nose appeared normal. Throat: No exudate or erythema. NECK: Supple. No JVD, no carotid bruit. No lymphadenopathy or thyromegaly. LUNGS: Clear to auscultation. Percussion note normal. Chest symmetrical. HEART: S1, S2, no S3. No murmurs. No cyanosis or clubbing. No ascites. Pulses: Dorsalis pedis and posterior tibial pulses +1 to +2 both sides. ABDOMEN: Soft. Nontender. Bowel sounds active. No CVA tenderness. No mass felt. EXTREMITIES: No edema. Full range of motion of all extremities, equal. NEUROLOGIC: No focal deficit. Cranial nerves II through XII are grossly intact. No headache, no double vision or headache. SKIN: Not dry. Intact. Turgor - normal. LYMPHATIC: No palpable lymph nodes/no lymphedema. MUSCULOSKELETAL: Normal joints with no swelling. Muscle tone is normal. LABS: The patient's hemoglobin and hematocrit is stable and rising to 10.1 and 30.9. ASSESSMENT: The patient's medical conditions are stable. He is gaining strength. Mental status is practically back to where it was-normal. Kidney functions are better with BUN of 32 and creatinine 1.1. Potassium 4.3. INR is 1.82, which is acceptable. TIME SPENT: More than 30 minutes. The patient was seen and examined with the nurse practitioner and case reviewer. Plan and coordination of the patient's care discussed in the presence of nurse. RAULITO
[2017-04-24] MEDS: COUMADIN PO SCH (16:26)
[2017-04-24] MEDS: ZOCOR PO SCH (20:27)
[2017-04-25 00:07] LABS: OCCULT BLOOD INTERNAL QC 2 INTERNAL QC VALID; OCCULT BLOOD INTERNAL QC 3 INTERNAL QC VALID; OCCULT BLOOD SAMPLE 2 NO SPECIMEN RECEIVED (NEGATIVE); OCCULT BLOOD SAMPLE 3 NO SPECIMEN RECEIVED (NEGATIVE)
[2017-04-25 05:17] LABS: BASOPHILS # (AUTO) 0.1 K/uL (0-0.2); BASOPHILS % (AUTO) 0.9 % (0.0-3.0); EOSINOPHILS # (AUTO) 0.5 K/ul (0.0-0.7); EOSINOPHILS % (AUTO) 7.6 % (0.0-7.0); HEMATOCRIT 30.5 % (42.0-52.0); IMMATURE GRANULOCYTE % (AUTO) 1.6 % (0.0-5.0); LYMPHOCYTES # (AUTO) 1.6 K/uL (0.60-3.4); MEAN CORPUSCULAR HEMOGLOBIN 29.6 pg (27.0-31.0); MEAN CORPUSCULAR HGB CONC 32.8 (31.8-35.4); MEAN CORPUSCULAR VOLUME 90.2 fl (80.0-94.0); MONOCYTES # (AUTO) 0.9 K/uL (0.4-2.0); MONOCYTES % (AUTO) 12.6 (0-10); NEUTROPHILS # (AUTO) 3.7 K/ul (2.0-6.9); NEUTROPHILS % (AUTO) 54.3; PLATELET COUNT 302 10^3/uL (140-440); RED BLOOD COUNT 3.38 10^6/ul (4.70-6.10); WHITE BLOOD COUNT 6.75 K/ul (4.2-10.2)
[2017-04-25 05:31] LABS: PROTHROMBIN TIME 17.9 SEC (9.3-11.0)
[2017-04-25 05:32] LABS: ANION GAP 17.4; BILIRUBIN,TOTAL 0.36 mg/dL (0.00-1.20); BUN/CREATININE RATIO 28.03; CALCIUM 9.7 mg/dL (8.2-10.2); CREATININE 1.07 mg/dL (0.60-1.10); POTASSIUM 4.4 mmol/L (3.5-5.1)
[2017-04-25] MEDS: SYNTHROID PO SCH (05:41)
[2017-04-25] MEDS: KEFLEX PO SCH ×3 (05:42→20:10)
[2017-04-25] MEDS: CLOBETASOL PROPIONATE TP SCH (08:56)
[2017-04-25] MEDS: WELCHOL PO SCH ×2 (08:57→16:36)
[2017-04-25] MEDS: ASPIRIN EC PO SCH (08:58)
[2017-04-25] MEDS: FLOMAX PO SCH ×2 (08:58→20:11)
[2017-04-25] MEDS: COZAAR PO SCH (08:58)
[2017-04-25] MEDS: BUMEX PO SCH (08:58)
[2017-04-25] MEDS: LOPRESSOR PO SCH ×2 (08:59→16:36)
[2017-04-25] MEDS: FLORASTOR PO SCH ×2 (08:59→20:11)
[2017-04-25] MEDS: TYLENOL PO SCH ×2 (08:59→20:11)
[2017-04-25] MEDS: TACROLIMUS TP SCH ×2 (09:01→20:11)
[2017-04-25 11:47] LABS: ADD URINE MICROSCOPIC NO; BILIRUBIN,URINE Negative (NEGATIVE); KETONES,URINE Negative (NEGATIVE); LEUKOCYTE ESTERASE ,URINE Negative (NEGATIVE); NITRITE,URINE Negative (NEGATIVE); PH,URINE 5.5 (5-9); PROTEIN,URINE Negative (NEGATIVE); URINE, BLOOD Negative (NEGATIVE)
--- NOTE | 2017-04-25 14:02 | PCM.PROG ---
Attending Provider: ATTENDING PROVIDER: Dr. MICHELE DOWELL DATE OF SERVICE: 04/25/17 SUBJECTIVE: This 82 year old WHITE/ M was hospitalized 04/05/17. The patient is still undergoing PT. He is weak, trying to ambulate. Home visit was not quite encouraging to him. REVIEW OF SYSTEMS: CONSTITUTIONAL: Weakness. No night sweats. No fever or chills. HEENT: Eyes: No visual changes. No eye pain. No eye discharge. ENT: No runny nose. No epistaxis. No sinus pain. No odynophagia. No congestion. RESPIRATORY: No cough, no congestion. No hemoptysis. No shortness of breath. No PND. CARDIOVASCULAR: No angina symptoms. No CHF symptoms. No atypical chest pain for CAD. No palpitations. No orthopnea.. GASTROINTESTINAL: No abdominal pain. No nausea or vomiting. No diarrhea or constipation. No hematemesis. No hematochezia. GENITOURINARY: The patient has frequency of urination more like prostatism symptoms. MUSCULOSKELETAL: No musculoskeletal pain; no joint swelling. NEUROLOGICAL: Awake, alert, oriented to time, place and person. No headache. No neck pain. No syncope. No seizures. No dizziness. PSYCHIATRIC: Not anxious. No depression. No suicidal thoughts. No homicidal thoughts. SKIN: No rash. No lesions. No wounds. ENDOCRINE: No unexplained weight loss. No weight gain. HEMATOLOGIC/LYMPHATIC: No anemia. No purpura. No petechiae. No prolonged or excessive bleeding. No palpable lymph nodes. PHYSICAL EXAMINATION: GENERAL: The patient is awake, alert and oriented, sitting in chair in no distress. VITAL SIGNS: Temperature 97.7 F, Pulse 78, Respiratory Rate 16, BP 130/74, Pulse Ox 97% HEENT: Head normocephalic, atraumatic. Eyes: Extraocular muscles are intact. Pupils are equal, round and reactive to light and accommodation. Ears: No lesions. Nose appeared normal. Throat: No exudate or erythema. NECK: Supple. No JVD, no carotid bruit. No lymphadenopathy or thyromegaly. LUNGS: Clear to auscultation. Percussion note normal. Chest symmetrical. HEART: S1, S2, no S3. No murmurs. No cyanosis or clubbing. No ascites. Pulses: Dorsalis pedis and posterior tibial pulses +1 to +2 both sides. ABDOMEN: Soft. Non-tender. Bowel sounds active. No CVA tenderness. No mass felt. EXTREMITIES: No edema. Full range of motion of all extremities, equal. NEUROLOGIC: No focal deficit. Cranial nerves II through XII are grossly intact. No headache, no double vision or headache. SKIN: Not dry. Intact. Turgor-normal. LYMPHATIC: No palpable lymph nodes/no lymphedema. MUSCULOSKELETAL: Normal joints with no swelling. Muscle tone is normal. LAB REVIEW: 04/25/17 05:11 04/25/17 05:11 04/25/17 05:11: WBC 6.75, RBC 3.38 L, Hgb 10.0 L, Hct 30.5 L, MCV 90.2, MCH 29.6 , MCHC 32.8, RDW Coeff of [place] 13.4, Plt Count 302, Immature Gran % (Auto) 1.6, Neut % (Auto) 54.3, Lymph % (Auto) 23.0, [place] % (Auto) 12.6 H, Eos % (Auto) 7.6 H, Baso % (Auto) 0.9, Immature Gran # (Auto) 0.1, Neut # 3.7, Lymph # 1.6, [place] # 0.9, Eos # 0.5, Baso # 0.1, PT 17.9 H, INR 1.78, Sodium 138, Potassium 4.4, Chloride 98, Carbon Dioxide 27, Anion Gap 17.4, BUN 30 H, Creatinine 1.07, Estimated GFR (MDRD) 66.00, BUN/Creatinine Ratio 28.03, Glucose 89, Calcium 9.7 , Total Bilirubin 0.36, AST 15, ALT 12, Alkaline Phosphatase 88, Total Protein 6.0, Albumin 3.0 L, Globulin 3.0, Albumin/Globulin Ratio 1.00 04/24/17 13:45: Stl Occult Blood (IFOB) Negative, Stool Occult Blood #2 No specimen received, Stool Occult Blood #3 No specimen received ASSESSMENT: 1. Prostatism type symptoms will do UA culture PLAN: 1. Increase Flomax to twice a day 2. Continue PT 3. Try to improve nutritional status which is quite average. 4. More family is coming over the weekend and will talk to them and plan is to continue rehabilitation. Plan and coordination of the patient's care discussed in the presence of Jail Guard and nurse. CONDITION: Stable SCRIBED BY: TRACY ROBISON [employer] Network Manager scribed while in presence of service performed by Dr. MICHELE DOWELL on 04/25/17 ([id number])
[2017-04-25] MEDS: COUMADIN PO SCH (16:36)
[2017-04-25] MEDS: ZOCOR PO SCH (20:10)
[2017-04-26 04:42] LABS: BASOPHILS # (AUTO) 0.1 K/uL (0-0.2); BASOPHILS % (AUTO) 0.9 % (0.0-3.0); EOSINOPHILS # (AUTO) 0.5 K/ul (0.0-0.7); EOSINOPHILS % (AUTO) 6.9 % (0.0-7.0); HEMATOCRIT 30.1 % (42.0-52.0); LYMPHOCYTES # (AUTO) 1.7 K/uL (0.60-3.4); LYMPHOCYTES % (AUTO) 25.7 (10.0-50.0); MEAN CORPUSCULAR HEMOGLOBIN 29.7 pg (27.0-31.0); MEAN CORPUSCULAR HGB CONC 33.2 (31.8-35.4); MEAN CORPUSCULAR VOLUME 89.3 fl (80.0-94.0); MONOCYTES # (AUTO) 0.8 K/uL (0.4-2.0); MONOCYTES % (AUTO) 11.2 (0-10); NEUTROPHILS # (AUTO) 3.6 K/ul (2.0-6.9); NEUTROPHILS % (AUTO) 54.3; PLATELET COUNT 312 10^3/uL (140-440); RED BLOOD COUNT 3.37 10^6/ul (4.70-6.10); WHITE BLOOD COUNT 6.69 K/ul (4.2-10.2)
[2017-04-26 04:53] LABS: PROTHROMBIN TIME 14.7 SEC (9.3-11.0)
[2017-04-26 05:06] LABS: ALBUMIN 3.1 g/dL (3.4-5.0); ALBUMIN/GLOBULIN RATIO 1.03; ANION GAP 18.4; BILIRUBIN,TOTAL 0.32 mg/dL (0.00-1.20); BUN/CREATININE RATIO 24.77; CALCIUM 9.4 mg/dL (8.2-10.2); CREATININE 1.13 mg/dL (0.60-1.10); POTASSIUM 4.4 mmol/L (3.5-5.1); TOTAL PROTEIN 6.1 g/dL (5.8-8.1)
[2017-04-26] MEDS: KEFLEX PO SCH ×3 (05:45→20:56)
[2017-04-26] MEDS: SYNTHROID PO SCH (05:46)
[2017-04-26] MEDS: ASPIRIN EC PO SCH (08:45)
[2017-04-26] MEDS: TYLENOL PO SCH ×2 (08:46→20:56)
[2017-04-26] MEDS: BUMEX PO SCH (08:46)
[2017-04-26] MEDS: WELCHOL PO SCH ×2 (08:46→17:02)
[2017-04-26] MEDS: FLORASTOR PO SCH ×2 (08:46→20:56)
[2017-04-26] MEDS: LOPRESSOR PO SCH ×2 (08:46→18:30)
[2017-04-26] MEDS: FLOMAX PO SCH ×2 (08:46→20:56)
[2017-04-26] MEDS: CLOBETASOL PROPIONATE TP SCH (08:47)
[2017-04-26] MEDS: COZAAR PO SCH (08:47)
[2017-04-26] MEDS: TACROLIMUS TP SCH ×2 (15:08→20:57)
[2017-04-26] MEDS: COUMADIN PO SCH (17:02)
[2017-04-26] MEDS: ZOCOR PO SCH (20:56)
[2017-04-27 04:55] LABS: BASOPHILS # (AUTO) 0.1 K/uL (0-0.2); BASOPHILS % (AUTO) 0.7 % (0.0-3.0); EOSINOPHILS # (AUTO) 0.4 K/ul (0.0-0.7); EOSINOPHILS % (AUTO) 5.3 % (0.0-7.0); HEMATOCRIT 29.5 % (42.0-52.0); HEMOGLOBIN 9.7 g/dl (14.0-18.0); IMMATURE GRANULOCYTE % (AUTO) 1.2 % (0.0-5.0); LYMPHOCYTES # (AUTO) 1.6 K/uL (0.60-3.4); LYMPHOCYTES % (AUTO) 21.1 (10.0-50.0); MEAN CORPUSCULAR HEMOGLOBIN 29.7 pg (27.0-31.0); MEAN CORPUSCULAR HGB CONC 32.9 (31.8-35.4); MEAN CORPUSCULAR VOLUME 90.2 fl (80.0-94.0); MONOCYTES # (AUTO) 0.7 K/uL (0.4-2.0); MONOCYTES % (AUTO) 8.6 (0-10); NEUTROPHILS # (AUTO) 4.8 K/ul (2.0-6.9); NEUTROPHILS % (AUTO) 63.1; PLATELET COUNT 278 10^3/uL (140-440); RED BLOOD COUNT 3.27 10^6/ul (4.70-6.10); WHITE BLOOD COUNT 7.57 K/ul (4.2-10.2)
[2017-04-27 05:17] LABS: ANION GAP 16.4; BILIRUBIN,TOTAL 0.28 mg/dL (0.00-1.20); BUN/CREATININE RATIO 24.11; CALCIUM 9.4 mg/dL (8.2-10.2); CREATININE 1.41 mg/dL (0.60-1.10); POTASSIUM 4.4 mmol/L (3.5-5.1)
[2017-04-27] MEDS: SYNTHROID PO SCH (05:34)
[2017-04-27] MEDS: KEFLEX PO SCH ×3 (05:34→20:45)
[2017-04-27] MEDS: WELCHOL PO SCH ×2 (08:46→16:38)
[2017-04-27] MEDS: BUMEX PO SCH (08:46)
[2017-04-27] MEDS: TYLENOL PO SCH ×2 (08:46→20:46)
[2017-04-27] MEDS: LOPRESSOR PO SCH ×2 (08:46→16:39)
[2017-04-27] MEDS: ASPIRIN EC PO SCH (08:46)
[2017-04-27] MEDS: FLORASTOR PO SCH ×2 (08:47→20:46)
[2017-04-27] MEDS: COZAAR PO SCH (08:47)
[2017-04-27] MEDS: FLOMAX PO SCH (08:47)
[2017-04-27] MEDS: CLOBETASOL PROPIONATE TP SCH (08:48)
[2017-04-27] MEDS: TACROLIMUS TP SCH ×2 (09:25→20:46)
--- NOTE | 2017-04-27 10:05 | PCM.PROG ---
Attending Provider: ATTENDING PROVIDER: Dr. MICHELE DOWELL DATE OF SERVICE: 04/27/17 SUBJECTIVE: This 82 year old WHITE/ M was hospitalized 04/05/17. The patient is seen with Jasmina, Nurse Practitioner. He is lying in bed, alert, states he feels good. He is not progressing with PT. He has had low blood pressure. REVIEW OF SYSTEMS: CONSTITUTIONAL: Weakness. No night sweats. No fever or chills. HEENT: Eyes: No visual changes. No eye pain. No eye discharge. ENT: No runny nose. No epistaxis. No sinus pain. No odynophagia. No congestion. RESPIRATORY: No cough, no congestion. No hemoptysis. No shortness of breath. CARDIOVASCULAR: No angina symptoms. No CHF symptoms. No atypical chest pain for CAD. No palpitations. No orthopnea.. GASTROINTESTINAL: No abdominal pain. No nausea or vomiting. No diarrhea or constipation. No hematemesis. No hematochezia. GENITOURINARY: No urgency. No frequency. No dysuria. No hematuria. No obstructive symptoms. No discharge. No pain. No significant abnormal bleeding. MUSCULOSKELETAL: No musculoskeletal pain; no joint swelling. NEUROLOGICAL: Awake, alert, oriented to time, place and person. No headache. No neck pain. No syncope. No seizures. No dizziness. PSYCHIATRIC: Not anxious. No depression. No suicidal thoughts. No homicidal thoughts. SKIN: Bruising is improving. ENDOCRINE: No unexplained weight loss. No weight gain. HEMATOLOGIC/LYMPHATIC: No anemia. No purpura. No petechiae. No prolonged or excessive bleeding. No palpable lymph nodes. PHYSICAL EXAMINATION: GENERAL: The patient is awake, alert and oriented, lying/sitting in bed in no distress. VITAL SIGNS: Temperature 98.9 F, Pulse 84, Respiratory Rate 20, BP 108/61, Pulse Ox 94% HEENT: Head normocephalic, atraumatic. Eyes: Extraocular muscles are intact. Pupils are equal, round and reactive to light and accommodation. Ears: No lesions. Nose appeared normal. Throat: No exudate or erythema. NECK: Supple. No JVD, no carotid bruit. No lymphadenopathy or thyromegaly. LUNGS: Diminished breath sounds. Clear to auscultation. Percussion note normal. Chest symmetrical. HEART: S1, S2, no S3. No murmurs. No cyanosis or clubbing. No ascites. Pulses: Dorsalis pedis and posterior tibial pulses +1 to +2 both sides. ABDOMEN: Soft. Non-tender. Bowel sounds active. No CVA tenderness. No mass felt. EXTREMITIES: No edema. Full range of motion of all extremities, equal. NEUROLOGIC: No focal deficit. Cranial nerves II through XII are grossly intact. No headache, no double vision or headache. SKIN: Not dry. Intact. Turgor-normal. LYMPHATIC: No palpable lymph nodes/no lymphedema. MUSCULOSKELETAL: Normal joints with no swelling. Muscle tone is normal. LAB REVIEW: 04/27/17 04:30 04/27/17 04:30 04/27/17 04:30: WBC 7.57, RBC 3.27 L, Hgb 9.7 L, Hct 29.5 L, MCV 90.2, MCH 29.7 , MCHC 32.9, RDW Coeff of Todd 13.7, Plt Count 278, Immature Gran % (Auto) 1.2, Neut % (Auto) 63.1, Lymph % (Auto) 21.1, [place] % (Auto) 8.6, Eos % (Auto) 5.3, Baso % (Auto) 0.7, Immature Gran # (Auto) 0.1, Neut # 4.8, Lymph # 1.6, [place] # 0.7, Eos # 0.4, Baso # 0.1, Sodium 136, Potassium 4.4, Chloride 99, Carbon Dioxide 25, Anion Gap 16.4, BUN 34 H, Creatinine 1.41 H, Estimated GFR (MDRD) 48.00, BUN/Creatinine Ratio 24.11, Glucose 92, Calcium 9.4, Total Bilirubin 0.28 , AST 11 L, ALT 9 L, Alkaline Phosphatase 85, Total Protein 6.0, Albumin 3.0 L, Globulin 3.0, Albumin/Globulin Ratio 1.00 ASSESSMENT: 1. Hypotension 2. Left clavicular fracture 3. Pacemaker placement PLAN: 1. Decrease Lopressor 25 mg b.i.d. 2. Decrease Cozaar 50 mg daily 3. Continue PT/OT Plan and coordination of the patient's care discussed in the presence of Registered Pharmacist and nurse. CONDITION: Stable SCRIBED BY: Nathan JACOBSENist scribed while in presence of service performed by Dr. MICHELE DOWELL/JASMINA MCBRIDE APRN on 04/27/17 ([id number])
[2017-04-27] MEDS: COUMADIN PO SCH (16:38)
[2017-04-27] MEDS: ZOCOR PO SCH (20:45)
[2017-04-28] MEDS: KEFLEX PO SCH ×3 (05:35→20:46)
[2017-04-28 05:36] LABS: BASOPHILS # (AUTO) 0.1 K/uL (0-0.2); BASOPHILS % (AUTO) 0.6 % (0.0-3.0); EOSINOPHILS # (AUTO) 0.5 K/ul (0.0-0.7); EOSINOPHILS % (AUTO) 5.2 % (0.0-7.0); HEMATOCRIT 30.6 % (42.0-52.0); HEMOGLOBIN 9.9 g/dl (14.0-18.0); IMMATURE GRANULOCYTE % (AUTO) 0.7 % (0.0-5.0); LYMPHOCYTES # (AUTO) 1.6 K/uL (0.60-3.4); LYMPHOCYTES % (AUTO) 18.6 (10.0-50.0); MEAN CORPUSCULAR HEMOGLOBIN 29.2 pg (27.0-31.0); MEAN CORPUSCULAR HGB CONC 32.4 (31.8-35.4); MEAN CORPUSCULAR VOLUME 90.3 fl (80.0-94.0); MONOCYTES # (AUTO) 0.7 K/uL (0.4-2.0); MONOCYTES % (AUTO) 7.9 (0-10); NEUTROPHILS # (AUTO) 5.9 K/ul (2.0-6.9); PLATELET COUNT 281 10^3/uL (140-440); RED BLOOD COUNT 3.39 10^6/ul (4.70-6.10); WHITE BLOOD COUNT 8.84 K/ul (4.2-10.2)
[2017-04-28] MEDS: SYNTHROID PO SCH (05:36)
[2017-04-28 06:05] LABS: ALBUMIN/GLOBULIN RATIO 0.94; ANION GAP 17.4; BILIRUBIN,TOTAL 0.29 mg/dL (0.00-1.20); BUN/CREATININE RATIO 37.25; CALCIUM 9.6 mg/dL (8.2-10.2); CREATININE 1.02 mg/dL (0.60-1.10); POTASSIUM 4.4 mmol/L (3.5-5.1); TOTAL PROTEIN 6.2 g/dL (5.8-8.1)
[2017-04-28] MEDS: WELCHOL PO SCH ×2 (08:44→18:12)
[2017-04-28] MEDS: FLOMAX PO SCH (08:44)
[2017-04-28] MEDS: FLORASTOR PO SCH ×2 (08:44→20:46)
[2017-04-28] MEDS: ASPIRIN EC PO SCH (08:44)
[2017-04-28] MEDS: TYLENOL PO SCH ×2 (08:44→20:46)
[2017-04-28] MEDS: CLOBETASOL PROPIONATE TP SCH (08:45)
[2017-04-28] MEDS: TACROLIMUS TP SCH ×2 (08:45→20:47)
[2017-04-28] MEDS ORDERED: COZAAR PO SCH (09:00)
[2017-04-28] MEDS: COUMADIN PO SCH (17:30)
[2017-04-28] MEDS: LOPRESSOR PO SCH (18:07)
[2017-04-28] MEDS: ZOCOR PO SCH (20:46)
[2017-04-29 05:32] LABS: PROTHROMBIN TIME 14.4 SEC (9.3-11.0)
[2017-04-29] MEDS: SYNTHROID PO SCH (05:37)
[2017-04-29] MEDS: KEFLEX PO SCH ×3 (05:38→20:00)
[2017-04-29] MEDS: FLOMAX PO SCH (08:51)
[2017-04-29] MEDS: ASPIRIN EC PO SCH (08:51)
[2017-04-29] MEDS: TACROLIMUS TP SCH ×2 (08:51→20:02)
[2017-04-29] MEDS: WELCHOL PO SCH ×2 (08:51→16:49)
[2017-04-29] MEDS: FLORASTOR PO SCH ×2 (08:51→20:01)
[2017-04-29] MEDS: TYLENOL PO SCH ×2 (08:51→20:00)
[2017-04-29] MEDS: LOPRESSOR PO SCH ×2 (08:52→17:06)
[2017-04-29] MEDS: CLOBETASOL PROPIONATE TP SCH (08:52)
[2017-04-29] MEDS: BUMEX PO SCH (10:32)
[2017-04-29] MEDS: COUMADIN PO SCH (16:49)
[2017-04-29] MEDS ORDERED: COUMADIN PO ONE (17:00)
[2017-04-29] MEDS: ZOCOR PO SCH (20:00)
[2017-04-30] MEDS: SYNTHROID PO SCH (05:34)
[2017-04-30] MEDS: KEFLEX PO SCH (05:34)
[2017-04-30] MEDS ORDERED: COUMADIN PO STA (08:26)
[2017-04-30] MEDS: FLORASTOR PO SCH ×2 (08:40→21:08)
[2017-04-30] MEDS: ASPIRIN EC PO SCH (08:40)
[2017-04-30] MEDS: BUMEX PO SCH (08:40)
[2017-04-30] MEDS: WELCHOL PO SCH ×2 (08:40→16:55)
[2017-04-30] MEDS: TYLENOL PO SCH ×2 (08:41→21:08)
[2017-04-30] MEDS: TACROLIMUS TP SCH ×2 (08:42→20:43)
[2017-04-30] MEDS: LOPRESSOR PO SCH ×2 (08:43→16:56)
[2017-04-30] MEDS: FLOMAX PO SCH (08:44)
[2017-04-30] MEDS: CLOBETASOL PROPIONATE TP SCH (08:44)
[2017-04-30] MEDS: COUMADIN PO SCH (16:56)
[2017-04-30] MEDS: ZOCOR PO SCH (21:08)
[2017-05-01 05:16] LABS: BASOPHILS # (AUTO) 0.1 K/uL (0-0.2); BASOPHILS % (AUTO) 0.7 % (0.0-3.0); EOSINOPHILS # (AUTO) 0.5 K/ul (0.0-0.7); EOSINOPHILS % (AUTO) 5.6 % (0.0-7.0); HEMATOCRIT 30.5 % (42.0-52.0); HEMOGLOBIN 10.1 g/dl (14.0-18.0); IMMATURE GRANULOCYTE % (AUTO) 0.4 % (0.0-5.0); LYMPHOCYTES # (AUTO) 1.6 K/uL (0.60-3.4); LYMPHOCYTES % (AUTO) 16.5 (10.0-50.0); MEAN CORPUSCULAR HEMOGLOBIN 29.6 pg (27.0-31.0); MEAN CORPUSCULAR HGB CONC 33.1 (31.8-35.4); MEAN CORPUSCULAR VOLUME 89.4 fl (80.0-94.0); MONOCYTES # (AUTO) 0.9 K/uL (0.4-2.0); MONOCYTES % (AUTO) 9.3 (0-10); NEUTROPHILS # (AUTO) 6.5 K/ul (2.0-6.9); NEUTROPHILS % (AUTO) 67.5; PLATELET COUNT 248 10^3/uL (140-440); RED BLOOD COUNT 3.41 10^6/ul (4.70-6.10); WHITE BLOOD COUNT 9.61 K/ul (4.2-10.2)
[2017-05-01 05:42] LABS: ALBUMIN 3.1 g/dL (3.4-5.0); ALBUMIN/GLOBULIN RATIO 1.07; ANION GAP 15.5; BILIRUBIN,TOTAL 0.3 mg/dL (0.00-1.20); BUN/CREATININE RATIO 25.75; CALCIUM 9.5 mg/dL (8.2-10.2); CREATININE 1.32 mg/dL (0.60-1.10); POTASSIUM 4.5 mmol/L (3.5-5.1)
[2017-05-01] MEDS: SYNTHROID PO SCH (05:51)
[2017-05-01 07:08] LABS: PROTHROMBIN TIME 20.7 SEC (9.3-11.0)
[2017-05-01] MEDS: TYLENOL PO SCH ×2 (09:07→21:17)
[2017-05-01] MEDS: FLOMAX PO SCH (09:07)
[2017-05-01] MEDS: FLORASTOR PO SCH ×2 (09:07→21:17)
[2017-05-01] MEDS: WELCHOL PO SCH ×2 (09:07→17:57)
[2017-05-01] MEDS: ASPIRIN EC PO SCH (09:07)
[2017-05-01] MEDS: BUMEX PO SCH (09:07)
[2017-05-01] MEDS: LOPRESSOR PO SCH ×2 (09:08→17:57)
[2017-05-01] MEDS: TACROLIMUS TP SCH ×2 (09:10→21:18)
[2017-05-01] MEDS: CLOBETASOL PROPIONATE TP SCH (09:10)
--- NOTE | 2017-05-01 09:19 | PCM.PROG ---
Attending Provider: ATTENDING PROVIDER: Dr. MICHELE DOWELL DATE OF SERVICE: 05/01/17 SUBJECTIVE: This 82 year old WHITE/ M was hospitalized 04/05/17. The patient is seen with Jasmina, Nurse Practitioner. The patient is lying in bed, alert. The patient is ready to go home. He would like to go tomorrow when family can pick him up. The family has hired a sitter, Howard, to be with him during the day, and will also have home health for Physical Therapy. The patient refuses fci placement. REVIEW OF SYSTEMS: CONSTITUTIONAL: Weakness. No night sweats. No fever or chills. HEENT: Eyes: No visual changes. No eye pain. No eye discharge. ENT: No runny nose. No epistaxis. No sinus pain. No odynophagia. No congestion. RESPIRATORY: No cough, no congestion. No hemoptysis. No shortness of breath. CARDIOVASCULAR: No angina symptoms. No CHF symptoms. No atypical chest pain for CAD. No palpitations. No orthopnea.. GASTROINTESTINAL: No abdominal pain. No nausea or vomiting. No diarrhea or constipation. No hematemesis. No hematochezia. GENITOURINARY: No urgency. No frequency. No dysuria. No hematuria. No obstructive symptoms. No discharge. No pain. No significant abnormal bleeding. MUSCULOSKELETAL: Callous formation on the left clavicle decreased in size. NEUROLOGICAL: Awake, alert, oriented to time, place and person. No headache. No neck pain. No syncope. No seizures. No dizziness. PSYCHIATRIC: Not anxious. No depression. No suicidal thoughts. No homicidal thoughts. SKIN: Bruising has almost resolved. ENDOCRINE: No unexplained weight loss. No weight gain. HEMATOLOGIC/LYMPHATIC: No anemia. No purpura. No petechiae. No prolonged or excessive bleeding. No palpable lymph nodes. PHYSICAL EXAMINATION: GENERAL: The patient is awake, alert and oriented, lying in bed in no distress. VITAL SIGNS: Temperature 97.5 F, Pulse 88, Respiratory Rate 20, BP 122/70, Pulse Ox 94% HEENT: Head normocephalic, atraumatic. Eyes: Extraocular muscles are intact. Pupils are equal, round and reactive to light and accommodation. Ears: No lesions. Nose appeared normal. Throat: No exudate or erythema. NECK: Supple. No JVD, no carotid bruit. No lymphadenopathy or thyromegaly. LUNGS: Diminished breath sounds bilaterally. Clear to auscultation. Percussion note normal. Chest symmetrical. HEART: S1, S2, no S3. No murmurs. No cyanosis or clubbing. No ascites. Pulses: Dorsalis pedis and posterior tibial pulses +1 to +2 both sides. ABDOMEN: Soft. Non-tender. Bowel sounds active. No CVA tenderness. No mass felt. EXTREMITIES: No edema. Full range of motion of all extremities, equal. NEUROLOGIC: No focal deficit. Cranial nerves II through XII are grossly intact. No headache, no double vision or headache. SKIN: Not dry. Intact. Turgor-normal. LYMPHATIC: No palpable lymph nodes/no lymphedema. MUSCULOSKELETAL: Normal joints with no swelling. Muscle tone is normal. LAB REVIEW: 05/01/17 05:10 05/01/17 05:10 05/01/17 05:10: WBC 9.61, RBC 3.41 L, Hgb 10.1 L, Hct 30.5 L, MCV 89.4, MCH 29.6 , MCHC 33.1, RDW Coeff of [place] 13.7, Plt Count 248, Immature Gran % (Auto) 0.4, Neut % (Auto) 67.5, Lymph % (Auto) 16.5, [place] % (Auto) 9.3, Eos % (Auto) 5.6, Baso % (Auto) 0.7, Immature Gran # (Auto) 0.0, Neut # 6.5, Lymph # 1.6, [place] # 0.9, Eos # 0.5, Baso # 0.1, Sodium 138, Potassium 4.5, Chloride 99, Carbon Dioxide 28, Anion Gap 15.5, BUN 34 H, Creatinine 1.32 H, Estimated GFR (MDRD) 52.00, BUN/Creatinine Ratio 25.75, Glucose 91, Calcium 9.5, Total Bilirubin 0.30 , AST 14 L, ALT 9 L, Alkaline Phosphatase 100, Total Protein 6.0, Albumin 3.1 L , Globulin 2.9, Albumin/Globulin Ratio 1.07 05/01/17 05:00: PT 20.7 H D, INR 2.07 ASSESSMENT: 1. Hypotension 2. Left clavicular fracture 3. Pacemaker placement 4. Weakness PLAN: 1. Anticipate discharge tomorrow 2. Resume 4 mg of Coumadin daily Plan and coordination of the patient's care discussed in the presence of Import Export Clerk and nurse. CONDITION: Stable SCRIBED BY: Nathan JACOBSENist scribed while in presence of service performed by Dr. MICHELE DOWELL/JASMINA MCBRIDE APRN on 05/01/17 ([id number])
--- NOTE | 2017-05-01 11:36 | PN ---
DATE OF SERVICE: 04/28/17 SUBJECTIVE: The patient is a 82 year old white male hospitalized with left clavicular fracture and pacemaker placement. The patient is progressing well. He is sitting up in the chair eating. Still weak but wide open to the idea that he needs to work up and get stronger. The sons are coming over the long weeks where I will have a discussion with him. We will continue his rehab with ambulation. He is able to walk with the walker now. REVIEW OF SYSTEMS: CONSTITUTIONAL: No night sweats. No fatigue, malaise, lethargy. No fever or chills. HEENT: Eyes: No visual changes. No eye pain. No eye discharge. ENT: No runny nose. No epistaxis. No sinus pain. No sore throat. No odynophagia. No congestion. RESPIRATORY: No cough, no congestion. No hemoptysis. No shortness of breath. CARDIOVASCULAR: No angina symptoms. No CHF symptoms. No atypical chest pain for CAD. No palpitations. No orthopnea. No PND. GASTROINTESTINAL: No abdominal pain. No nausea or vomiting. No diarrhea or constipation. No hematemesis. No hematochezia. GENITOURINARY: No urgency. No frequency. No dysuria. No hematuria. No obstructive symptoms. No discharge. No pain. No significant abnormal bleeding. MUSCULOSKELETAL: No musculoskeletal pain; no joint swelling. NEUROLOGICAL: No headache. No neck pain. No syncope. No seizures. No dizziness. PSYCHIATRIC: Not anxious. No depression. No suicidal thoughts. No homicidal thoughts. SKIN: No rash. No lesions. No wounds. ENDOCRINE: No unexplained weight loss. No weight gain. HEMATOLOGIC/LYMPHATIC: No anemia. No purpura. No petechiae. No prolonged or excessive bleeding. No palpable lymph nodes. PHYSICAL EXAMINATION: GENERAL: The patient is oriented to time, place and person. VITAL SIGNS: Temperature 98.3, pulse 85, respiratory rate 20, blood pressure 110/70 and pulse ox 95%. HEENT: Head normocephalic, atraumatic. Eyes: Extraocular muscles are intact. Pupils are equal, round and reactive to light and accommodation. Ears: No lesions. Nose appeared normal. Throat: No exudate or erythema. NECK: Supple. No JVD, no carotid bruit. No lymphadenopathy or thyromegaly. LUNGS:Decreased breath sounds but clear to auscultation. Percussion note normal. Chest symmetrical. HEART: S1, S2, no S3. No murmurs. No cyanosis or clubbing. No ascites. Pulses: Dorsalis pedis and posterior tibial pulses +1 to +2 both sides. ABDOMEN: Soft. Nontender. Bowel sounds active. No CVA tenderness. No mass felt. EXTREMITIES: No edema. Full range of motion of all extremities, equal. NEUROLOGIC: No focal deficit. Cranial nerves II through XII are grossly intact. No headache, no double vision or headache. SKIN: Not dry. Intact. Turgor - normal. LYMPHATIC: No palpable lymph nodes/no lymphedema. MUSCULOSKELETAL: Normal joints with no swelling. Muscle tone is normal. LABS: Hgb 9.9, hct 30, WBC 8,800 normal differential, creatinine 1, BUN 38, potassium 4.4 and INR 1.4 ASSESSMENT: 1. The patient is recovering from syncopal episodes with pacemaker 2. Clavicular fracture seems to be stable 3. Anemia is stable 4. Status post CVA 5. Depression 6. Dementia is resolved PLAN: 1. Continue physical therapy 2. Continue to monitor the patient's lab 3. The patient's congestion and cough has resolved 4. UTI symptoms have resolved 5. He is Flomax and seems to be working well. TIME SPENT: More than 30 minutes. Plan and coordination of the patient's care discussed in the presence of nurse. RAULITO
--- NOTE | 2017-05-01 15:43 | PN ---
DATE OF SERVICE: 04/30/17 SUBJECTIVE: The patient is an 82 year old white male hospitalized with leg clavicular fracture and pacemaker placement. The patient had ecchymosis and bleeding under the skin on the upper third of the chest which practically has subsided. The patient was demented and couple of days sleepy obtunded. The patient fully has recovered. He is oriented to time,place and person. He is still weak but he is sitting up in the chair and able to walk with the walker. The patient's condition has improved remarkably. REVIEW OF SYSTEMS: CONSTITUTIONAL: No night sweats. No fatigue, malaise, lethargy. No fever or chills. HEENT: Eyes: No visual changes. No eye pain. No eye discharge. ENT: No runny nose. No epistaxis. No sinus pain. No sore throat. No odynophagia. No congestion. RESPIRATORY: No cough, no congestion. No hemoptysis. No shortness of breath. CARDIOVASCULAR: No angina symptoms. No CHF symptoms. No atypical chest pain for CAD. No palpitations. No orthopnea. No PND. GASTROINTESTINAL: No abdominal pain. No nausea or vomiting. No diarrhea or constipation. No hematemesis. No hematochezia. Appetite is improving. GENITOURINARY: No urgency. No frequency. No dysuria. No hematuria. No obstructive symptoms. No discharge. No pain. No significant abnormal bleeding. MUSCULOSKELETAL: No musculoskeletal pain; no joint swelling. NEUROLOGICAL: No headache. No neck pain. No syncope. No seizures. No dizziness. PSYCHIATRIC: Not anxious. No depression. No suicidal thoughts. No homicidal thoughts. SKIN: No rash. No lesions. No wounds. ENDOCRINE: No unexplained weight loss. No weight gain. HEMATOLOGIC/LYMPHATIC: No anemia. No purpura. No petechiae. No prolonged or excessive bleeding. No palpable lymph nodes. PHYSICAL EXAMINATION: GENERAL: The patient is oriented to time, place and person. VITAL SIGNS: Temperature 98.9, pulse 100, respiratory rate 18, blood pressure 111/63 and pulse ox 92%. HEENT: Head normocephalic, atraumatic. Eyes: Extraocular muscles are intact. Pupils are equal, round and reactive to light and accommodation. Ears: No lesions. Nose appeared normal. Throat: No exudate or erythema. NECK: Supple. No JVD, no carotid bruit. No lymphadenopathy or thyromegaly. LUNGS: Decreased breath sounds but clear to auscultation. Percussion note normal. Chest symmetrical. HEART: S1, S2, no S3. No murmurs. No cyanosis or clubbing. No ascites. Pulses: Dorsalis pedis and posterior tibial pulses +1 to +2 both sides. ABDOMEN: Soft. Nontender. Bowel sounds active. No CVA tenderness. No mass felt. EXTREMITIES: No edema. Full range of motion of all extremities, equal. NEUROLOGIC: No focal deficit. Cranial nerves II through XII are grossly intact. No headache, no double vision or headache. SKIN: Not dry. Intact. Turgor - normal. LYMPHATIC: No palpable lymph nodes/no lymphedema. MUSCULOSKELETAL: Normal joints with no swelling. Muscle tone is normal. LABS: Hgb 9.9, hct 30, WBC 8,800 normal differential, creatinine 1, BUN 38, potassium 4.4, INR is still 1.49 Give 4mg extra today. The patient was given 4mg extra yesterday ASSESSMENT: 1. Pacemaker capturing and functioning well 2. Anemia, stable 3. Clavicular fractures, stable 4. Status post CVA 5. Hypertension 6. Dementia PLAN: 1. Continue Physical therapy 2. Extra dose of Coumadin 3. Monitor INR. 4. The patient doesn't want to go to the Group Home and he says that he should be able to be handled at home by his and his family members. He flatly refuses to consider going to the Group Home. TIME SPENT: More than 30 minutes. Plan and coordination of the patient's care discussed in the presence of nurse. RAULITO
[2017-05-01] MEDS: COUMADIN PO SCH (17:56)
[2017-05-01] MEDS: ZOCOR PO SCH (21:17)
[2017-05-02] MEDS: TYLENOL PO PRN ×2 (04:35→20:58)
[2017-05-02] MEDS: SYNTHROID PO SCH (05:44)
[2017-05-02] MEDS: FLOMAX PO SCH (08:48)
[2017-05-02] MEDS: ASPIRIN EC PO SCH (08:48)
[2017-05-02] MEDS: BUMEX PO SCH (08:49)
[2017-05-02] MEDS: CLOBETASOL PROPIONATE TP SCH (08:49)
[2017-05-02] MEDS: WELCHOL PO SCH ×2 (08:49→18:21)
[2017-05-02] MEDS: FLORASTOR PO SCH ×2 (08:50→20:58)
[2017-05-02] MEDS: LOPRESSOR PO SCH ×2 (08:50→18:20)
[2017-05-02] MEDS: TYLENOL PO SCH ×2 (08:50→21:00)
[2017-05-02] MEDS: TACROLIMUS TP SCH ×2 (08:51→20:59)
[2017-05-02] MEDS: COUMADIN PO SCH (18:20)
[2017-05-02] MEDS: ZOCOR PO SCH (20:58)
[2017-05-03 05:31] VITALS: BP 111/65; TEMP 97
[2017-05-03] MEDS: SYNTHROID PO SCH (05:38)
[2017-05-03 08:38] LABS: BASOPHILS # (AUTO) 0.1 K/uL (0-0.2); BASOPHILS % (AUTO) 0.8 % (0.0-3.0); EOSINOPHILS # (AUTO) 0.5 K/ul (0.0-0.7); EOSINOPHILS % (AUTO) 5.6 % (0.0-7.0); HEMATOCRIT 31.1 % (42.0-52.0); HEMOGLOBIN 10.3 g/dl (14.0-18.0); IMMATURE GRANULOCYTE % (AUTO) 0.4 % (0.0-5.0); LYMPHOCYTES # (AUTO) 1.5 K/uL (0.60-3.4); LYMPHOCYTES % (AUTO) 17.6 (10.0-50.0); MEAN CORPUSCULAR HEMOGLOBIN 29.9 pg (27.0-31.0); MEAN CORPUSCULAR HGB CONC 33.1 (31.8-35.4); MEAN CORPUSCULAR VOLUME 90.4 fl (80.0-94.0); MONOCYTES # (AUTO) 0.8 K/uL (0.4-2.0); MONOCYTES % (AUTO) 9.2 (0-10); NEUTROPHILS # (AUTO) 5.6 K/ul (2.0-6.9); NEUTROPHILS % (AUTO) 66.4; PLATELET COUNT 238 10^3/uL (140-440); RED BLOOD COUNT 3.44 10^6/ul (4.70-6.10); WHITE BLOOD COUNT 8.45 K/ul (4.2-10.2)
[2017-05-03] MEDS: LOPRESSOR PO SCH (08:45)
[2017-05-03] MEDS: WELCHOL PO SCH (08:45)
[2017-05-03] MEDS: TYLENOL PO SCH (08:45)
[2017-05-03] MEDS: FLOMAX PO SCH (08:45)
[2017-05-03] MEDS: ASPIRIN EC PO SCH (08:45)
[2017-05-03] MEDS: BUMEX PO SCH (08:45)
[2017-05-03] MEDS: FLORASTOR PO SCH (08:46)
[2017-05-03] MEDS: CLOBETASOL PROPIONATE TP SCH (08:46)
[2017-05-03] MEDS: TACROLIMUS TP SCH (08:46)
[2017-05-03 08:48] LABS: PROTHROMBIN TIME 21.1 SEC (9.3-11.0)
[2017-05-03 08:52] LABS: ALBUMIN 3.3 g/dL (3.4-5.0); ALBUMIN/GLOBULIN RATIO 1.06; ANION GAP 13.4; BILIRUBIN,TOTAL 0.46 mg/dL (0.00-1.20); BUN/CREATININE RATIO 26.22; CALCIUM 9.7 mg/dL (8.2-10.2); CREATININE 1.22 mg/dL (0.60-1.10); POTASSIUM 4.4 mmol/L (3.5-5.1); TOTAL PROTEIN 6.4 g/dL (5.8-8.1)
--- NOTE | 2017-05-03 09:57 | PCM.PROG ---
Attending Provider: ATTENDING PROVIDER: Dr. MICHELE DOWELL DATE OF SERVICE: 05/03/17 SUBJECTIVE: This 82 year old WHITE/ M was hospitalized 04/05/17. The patient is seen with Jasmina, Nurse Practitioner. The patient is lying in bed and is alert. He is ready to go home today, The patient refuses long term placement and is agreeable to go home with Home Health, PT/OT. The family has hired a caregiver to which the patient is agreeable. REVIEW OF SYSTEMS: CONSTITUTIONAL: Generalized weakness. No night sweats. No fever or chills. HEENT: Eyes: No visual changes. No eye pain. No eye discharge. ENT: No runny nose. No epistaxis. No sinus pain. No odynophagia. No congestion. RESPIRATORY: No cough, no congestion. No hemoptysis. No shortness of breath. CARDIOVASCULAR: No angina symptoms. No CHF symptoms. No atypical chest pain for CAD. No palpitations. No orthopnea.. GASTROINTESTINAL: No abdominal pain. No nausea or vomiting. No diarrhea or constipation. No hematemesis. No hematochezia. GENITOURINARY: No urgency. No frequency. No dysuria. No hematuria. No obstructive symptoms. No discharge. No pain. No significant abnormal bleeding. MUSCULOSKELETAL: Knee pain. Left clavicular pain. NEUROLOGICAL: Awake, alert, oriented to time, place and person. No headache. No neck pain. No syncope. No seizures. No dizziness. PSYCHIATRIC: Not anxious. No depression. No suicidal thoughts. No homicidal thoughts. SKIN: No rash. Callus formation on left clavicle is improving. ENDOCRINE: No unexplained weight loss. No weight gain. HEMATOLOGIC/LYMPHATIC: No anemia. No purpura. No petechiae. No prolonged or excessive bleeding. No palpable lymph nodes. PHYSICAL EXAMINATION: GENERAL: The patient is awake, alert and oriented, lying in bed in no distress. VITAL SIGNS: Temperature 97.0 F, Pulse 85, Respiratory Rate 16, BP 111/65, Pulse Ox 96% HEENT: Head normocephalic, atraumatic. Eyes: Extraocular muscles are intact. Pupils are equal, round and reactive to light and accommodation. Ears: No lesions. Nose appeared normal. Throat: No exudate or erythema. NECK: Supple. No JVD, no carotid bruit. No lymphadenopathy or thyromegaly. LUNGS: Diminished breath sounds, bilaterally equal and clear to auscultation. Percussion note normal. Chest symmetrical. HEART: S1, S2, no S3. No murmurs. No cyanosis or clubbing. No ascites. Pulses: Dorsalis pedis and posterior tibial pulses +1 to +2 both sides. ABDOMEN: Soft. Non-tender. Bowel sounds active. No CVA tenderness. No mass felt. EXTREMITIES: No edema. Full range of motion of all extremities, equal. Callus formation on left clavicle is improving. NEUROLOGIC: No focal deficit. Cranial nerves II through XII are grossly intact. No headache, no double vision or headache. SKIN: Not dry. Intact. Turgor-normal. LYMPHATIC: No palpable lymph nodes/no lymphedema. MUSCULOSKELETAL: Normal joints with no swelling. Muscle tone is normal. LAB REVIEW: 05/01/17 05:10 05/01/17 05:10 ASSESSMENT: 1. Hypotension 2. Left clavicular fracture 3. Pacemaker placement 4. Weakness PLAN: 1. Discharge home with Home Health, PT and OT at home, nursing and bath aide. 2. Fall precautions discussed. 3. The patient refuses long term placement. 4. PT/INR prior to discharge today along with CBC and CMP. 5. Will followup in the office next week. EDUCATION: Discussed home health with patient and family and they are agreeable for nursing services, PT/OT and a bath aide and also will arrange for a rolling walker. Plan and coordination of the patient's care discussed in the presence of Pyrotechnician and nurse. CONDITION: Stable SCRIBED BY: Zuri JACOBSEN scribed while in presence of service performed by Dr. MICHELE DOWELL/JASMINA MCBRIDE APRN on 05/03/17 ([id number])
--- NOTE | 2017-05-03 14:18 | PN ---
DATE OF SERVICE: 04/15/17 SUBJECTIVE: The patient is in swing bed. He was examined while lying in bed. He has been getting up and about on his own, states he is feeling good. His bruising on the upper chest is resolving. His appetite has been good. His vital signs have been steady. He seems to be improving well. REVIEW OF SYSTEMS: CONSTITUTIONAL: Positive for fatigue. No night sweats. No fever or chills. HEENT: Eyes: No visual changes. No eye pain. No eye discharge. ENT: No runny nose. No epistaxis. No sinus pain. No sore throat. No odynophagia. No congestion. RESPIRATORY: No cough, no congestion. No hemoptysis. No shortness of breath. CARDIOVASCULAR: No angina symptoms. No CHF symptoms. No atypical chest pain for CAD. No palpitations. No orthopnea. GASTROINTESTINAL: No abdominal pain. No nausea or vomiting. No diarrhea or constipation. No hematemesis. No hematochezia. GENITOURINARY: No dysuria, no hematuria. No obstructive symptoms. No discharge. No pain. No significant abnormal bleeding. MUSCULOSKELETAL: He does have bruising noted from fall. NEUROLOGICAL: Alert. No headache. No neck pain. No syncope. No seizures. No dizziness. PSYCHIATRIC: Not anxious. No depression. No suicidal thoughts. No homicidal thoughts. SKIN: No rash. As described below. ENDOCRINE: No unexplained weight loss. No weight gain. HEMATOLOGIC/LYMPHATIC: No anemia. No purpura. No petechiae. No prolonged or excessive bleeding. No palpable lymph nodes. PHYSICAL EXAMINATION: VITAL SIGNS: Normal. Temperature 96.3, heart rate 94, respirations 18, BP 106/ 63. Pulse ox 95. HEENT: Head normocephalic, atraumatic. Eyes: Extraocular muscles are intact. Pupils are equal, round and reactive to light and accommodation. Ears: No lesions. Nose appeared normal. Throat: No exudate or erythema. NECK: Supple. No JVD, no carotid bruit. No lymphadenopathy or thyromegaly. LUNGS: Clear with diminished breath sounds bilaterally. Percussion note normal. Chest symmetrical. HEART: Regular rate and rhythm without murmurs, clicks or rubs. S1, S2, no S3. No cyanosis or clubbing. No ascites. Pulses: Dorsalis pedis and posterior tibial pulses +1 to +2 both sides. ABDOMEN: Soft. Nontender. Bowel sounds active times four quadrants. No CVA tenderness. No mass felt. EXTREMITIES: No clubbing, no cyanosis. No joint swelling. No calf tenderness. No edema. NEUROLOGIC: The patient is alert and oriented to person. SKIN: Intact, warm and dry. Incision on right upper chest from pacemaker insertion. It is clean and dry with no signs of infection. The patient does have a knot on medial aspect of left clavicle consistent with callus formation. This is nontender and not red. LYMPHATIC: No palpable lymph nodes/no lymphedema. MUSCULOSKELETAL: Normal joints with no swelling. Muscle tone is normal. LABS: Hemoglobin 10.4 which is steady; hematocrit 30.9. Sodium 138, potassium 3.9. BUN 22, creatinine 1.06. ASSESSMENT: 1. LEFT CLAVICLE FRACTURE 2. PACEMAKER PLACEMENT 3. FATIGUE PLAN: 1. Will continue with PT and OT as tolerated. 2. Will continue with labs every other day. 3. The patient is in stable condition and seems to be improving well. TIME SPENT: More than 30 minutes. Plan and coordination of the patient's care discussed in the presence of nurse. RAULITO
--- NOTE | 2017-05-03 15:13 | CM.DICTOOL ---
ADMISSION: 04/05/17 18:06 DISCHARGE: 05/03/17 SWING BED DISCHARGE DATE OF SERVICE: 05/03/17 FINAL DIAGNOSIS S/P PACEMAKER PLACEMENT D/T SICK SINUS SYNDROME/SYNCOPE/COLLAPSE, 04/02/17 (DR. 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, 2016 CORONARY ARTERY DISEASE HYPERTENSION DYSLIPIDEMIA HYPOTHYROIDISM OSTEOARTHRITIS DEGENERATIVE DISC DISEASE OF THE SPINE DEMENTIA SURGICAL HISTORY: CATARACT SURGERY, 2009 TONSILECTOMY, DATE UNKNOWN (IN CHILDHOOD) CABG, 1985 CAROTID ENDARECTOMY, 1988 HIATAL HERNIA REPAIR LAST VITALS Temp Pulse Resp BP Pulse Ox 97.0 F L 85 16 111/65 96 05/03/17 05:31 05/03/17 05:31 05/03/17 05:31 05/03/17 05:31 05/03/17 05:31 ACTIVE MEDICATIONS Acetaminophen (Tylenol) 650 mg PO Q6H PRN PRN Reason: Mild Pain Last Admin: 05/02/17 04:35 Dose: 650 mg Aspirin (Aspirin Ec) 81 mg PO DAILYWM [facility] Last Admin: 05/03/17 08:45 Dose: 81 mg Bumetanide (Bumex) 1 mg PO DAILY [facility] Last Admin: 05/03/17 08:45 Dose: 1 mg Colesevelam HCl (Welchol) 1,250 mg PO BIDWM [facility] Last Admin: 05/03/17 08:45 Dose: 1,250 mg Guaifenesin (Robitussin Sugar-Free) 10 ml PO Q4-6H PRN PRN Reason: Cough Levothyroxine Sodium (Synthroid) 75 mcg PO QDAC [facility] Last Admin: 05/03/17 05:38 Dose: 75 mcg Meclizine HCl (Antivert) 25 mg PO TID PRN PRN Reason: Dizziness Last Admin: 04/22/17 09:59 Dose: 25 mg Metoprolol Tartrate (Lopressor) 25 mg PO BIDWM SHAN[facility] (REDUCED FROM 50 MG PO BID) Last Admin: 05/03/17 08:45 Dose: 25 mg Tacrolimus [Protopic] 1 applic TP BID [facility] Last Admin: 05/03/17 08:46 Dose: Not Given Clobetasol Propionate [Clobetasol Propionate] 0.5 gm TP DAILY [facility] Last Admin: 05/03/17 08:46 Dose: 0.5 gm Saccharomyces Boulardii (Florastor) 250 mg PO BID [facility] Last Admin: 05/03/17 08:46 Dose: 250 mg Simvastatin (Zocor) 40 mg PO BEDTIME [facility] Last Admin: 05/02/17 20:58 Dose: 40 mg Sodium Chloride ([place] Nasal Banner) 1 spray STEPHEN PRN PRN PRN Reason: dry nose Tamsulosin HCL (Flomax) 0.4 mg PO DAILY [facility] Last Admin: 05/03/17 08:45 Dose: 0.4 mg Tramadol HCL (Ultram) 50 mg PO Q4-6H PRN Warfarin Sodium (Coumadin) 4 mg PO QPM [facility] Last Admin: 05/02/17 18:20 Dose: 4 mg ALLERGIES niacin Adverse Reaction (Verified 04/05/17 18:34) TAPE Adverse Reaction (Uncoded 04/05/17 18:34) NEW PRESCRIPTIONS: DO NOT TAKE YOUR LOSARTAN POTASSIUM (COZAAR) NOTE THE DOSE CHANGE IN YOUR LOPRESSOR TO 25 MG BY MOUTH TWICE DAILY (WAS 50 MG) SMOKING: FORMER SMOKER NONE NOW DISEASE SPECIFIC EDUCATION: CLAVICLE FRACTURE PACEMAKERS HOME MEDICATIONS MEDICATION CHANGES FOLLOW UP HOME HEALTH PHYSICAL/OCCUPATIONAL THERAPY IN THE HOME LAB REVIEW: 05/03/17 08:25 05/03/17 08:25 05/03/17 08:25: WBC 8.45, RBC 3.44 L, Hgb 10.3 L, Hct 31.1 L, MCV 90.4, MCH 29.9 , MCHC 33.1, RDW Coeff of Todd 14.2, Plt Count 238, Immature Gran % (Auto) 0.4, Neut % (Auto) 66.4, Lymph % (Auto) 17.6, Blair % (Auto) 9.2, Eos % (Auto) 5.6, Baso % (Auto) 0.8, Immature Gran # (Auto) 0.0, Neut # 5.6, Lymph # 1.5, Blair # 0.8, Eos # 0.5, Baso # 0.1, PT 21.1 H, INR 2.12, Sodium 138, Potassium 4.4, Chloride 99, Carbon Dioxide 30, Anion Gap 13.4, BUN 32 H, Creatinine 1.22 H, Estimated GFR (MDRD) 57.00, BUN/Creatinine Ratio 26.22, Glucose 89, Calcium 9.7 , Total Bilirubin 0.46, AST 11 L, ALT 9 L, Alkaline Phosphatase 94, Total Protein 6.4, Albumin 3.3 L, Globulin 3.1, Albumin/Globulin Ratio 1.06 PLAN: DISCHARGE HOME TODAY [facility] WILL PHONE YOU TO SCHEDULE A VISIT TO YOUR HOME. THEY WILL PROVIDE NURSING SERVICES FOR GENERAL ASSESSMENT, MEDICATION COMPLIANCE AND BATH AIDE ASSISTANCE. THEY WILL ALSO PROVIDE PHYSICAL AND OCCUPATIONAL THERAPY IN YOUR HOME. [phone] [facility] FROM [place], [place] WILL DELIVER A ROLLING WALKER AND A GAIT BELT FOR YOU [phone] FOLLOW UP APPOINTMENTS: DR. DOWELL [phone] RETURN IN ONE WEEK. CALL TO SCHEDULE YOUR FOLLOW UP APPOINTMENT DR. WARD, ORTHOPAEDIST CALL TO SCHEDULE YOUR APPOINTMENT [id number] [place] [address] DR. TENA --PACEMAKER 05/17/17 AT 10:45 AM [address] [facility], [address] [place] [address] DR. TENA'S OFFICE SUGGESTS YOU CALL TO PERFORM A PACER CHECK WHEN YOU ARE DISCHARGED FROM [facility] BED RESUME YOUR HOME MEDICATIONS PER LIST PROVIDED BY THE NURSING STAFF DO NOT TAKE YOUR LOSARTAN POTASSIUM (COZAAR) NOTE THE DOSE CHANGE IN YOUR LOPRESSOR TO 25 MG BY MOUTH TWICE DAILY (WAS 50 MG) NO NEW MEDICATIONS ACTIVITY: GET PLENTY OF REST AT HOME. GRADUALLY INCREASE YOUR ACTIVITY TOLERATED KEEP YOUR FEET/LEGS ELEVATED FREQUENTLY POSSIBLE FOLLOW PHYSICAL THERAPY/OCCUPATIONAL THERAPY ADVICE DIET: TOLERATED SUMMARY: THE PATIENT IS ALERT AND ORIENTED X3. HE BECOMES CONFUSED AND FORGETFUL AT TIMES, BUT RE-ORIENTS EASILY. HE CURRENTLY RESIDES AT HOME WITH HIS SPOUSE. PRIOR TO THIS STAY THE PATIENT WAS ABLE TO COMPLETE ADL'S WITH ASSISTANCE BUT HAS BECOME MORE FRAGILE AND WEAK WITH AGE. AT HOME HE HAS AN OLD WALKER THAT WAS BORROWED AND A LIFT RECLINING CHAIR. PRIOR TO THIS SPELL OF ILLNESS, HE REQUIRED NO OTHER DME, HOME HEALTH OR HOMEMAKING SERVICES. MR. PIMENTEL HAS DECLINED USP PLACEMENT AT DISCHARGE AND DESIRES TO RETURN TO HIS HOME. HIS ADULT CHILDREN ARE AGREEABLE WITH HIS DECISION. CASE MANAGEMENT WILL ARRANGE HOME HEALTH NURSING, BATH AIDE, PT/OT SERVICES. A NEW ROLLING WALKER WILL BE OBTAINED FROM [facility] IN [place], [place]. MR. PIMENTEL'S SKIN TURGOR IS FAIR. HE HAS MULTIPLE LARGE AREAS OF BRUISING FROM THE FALL PRIOR TO HIS HOSPITALIZATION. THE LARGEST ARE LOCATED ON BOTH UPPER ARMS. THE BRUISING ACROSS THE CHEST HAS DISSIPATED. HIS PACEMAKER INSERTION SITE HAS HEALED NICELY. HE HAS A STAGE I DECUBITUS ULCER TO THE COCCYX AREA THAT IS HEALING. PHYSICAL THERAPY/OCCUPATIONAL THERAPY HAVE SENT STAFF ON TWO SEPERATE OCCASIONS TO MR. PIMENTEL'S HOME TO COMPLETE A SAFETY ASSESSMENT. THEY HAVE SPOKEN TO MR. PIMENTEL AND HIS FAMILY REGARDING THEIR FINDINGS AND RECOMMENDATIONS. [facility] WILL CONTINUE SERVICES IN THE HOME ENVIRONMENT AND WILL PROVIDE FEEDBACK TO THE PATIENT/FAMILY REGARDING THEIR OWN RECOMMENDATIONS. THE PATIENT/FAMILY ARE AWARE OF TODAY'S DISCHARGE PLANS AND ARE AGREEABLE. CURRENT CODE STATUS: FULL CODE CLAUDIO MCBRIDE APRN MICHELE DOWELL M.D.
--- NOTE | 2017-05-04 13:13 | PN ---
DATE OF SERVICE: 05/02/17 SUBJECTIVE: The patient is up and about getting ready for discharge. REVIEW OF SYSTEMS: CONSTITUTIONAL: No night sweats. No fatigue, malaise, lethargy. No fever or chills. HEENT: Eyes: No visual changes. No eye pain. No eye discharge. ENT: No runny nose. No epistaxis. No sinus pain. No sore throat. No odynophagia. No congestion. RESPIRATORY: No cough, no congestion. No hemoptysis. No shortness of breath. CARDIOVASCULAR: No angina symptoms. No CHF symptoms. No atypical chest pain for CAD. No palpitations. No orthopnea. GASTROINTESTINAL: No abdominal pain. No nausea or vomiting. No diarrhea or constipation. No hematemesis. No hematochezia. GENITOURINARY: No urgency. No frequency. No dysuria. No hematuria. No obstructive symptoms. No discharge. No pain. No significant abnormal bleeding. MUSCULOSKELETAL: No musculoskeletal pain; no joint swelling. NEUROLOGICAL: No headache. No neck pain. No syncope. No seizures. No dizziness. PSYCHIATRIC: Not anxious. No depression. No suicidal thoughts. No homicidal thoughts. SKIN: No rash. No lesions. No wounds. ENDOCRINE: No unexplained weight loss. No weight gain. HEMATOLOGIC/LYMPHATIC: No anemia. No purpura. No petechiae. No prolonged or excessive bleeding. No palpable lymph nodes. PHYSICAL EXAMINATION: HEENT: Head normocephalic, atraumatic. Eyes: Extraocular muscles are intact. Pupils are equal, round and reactive to light and accommodation. Ears: No lesions. Nose appeared normal. Throat: No exudate or erythema. NECK: Supple. No JVD, no carotid bruit. No lymphadenopathy or thyromegaly. LUNGS: Clear to auscultation. Percussion note normal. Chest symmetrical. HEART: S1, S2, no S3. No murmurs. No cyanosis or clubbing. No ascites. Pulses: Dorsalis pedis and posterior tibial pulses +1 to +2 both sides. ABDOMEN: Soft. Nontender. Bowel sounds active. No CVA tenderness. No mass felt. EXTREMITIES: No edema. Full range of motion of all extremities, equal. NEUROLOGIC: No focal deficit. Cranial nerves II through XII are grossly intact. No headache, no double vision or headache. Confusion at times. SKIN: Not dry. Intact. Turgor - normal. LYMPHATIC: No palpable lymph nodes/no lymphedema. MUSCULOSKELETAL: Normal joints with no swelling. Muscle tone is normal. TIME SPENT: More than 30 minutes. Plan and coordination of the patient's care discussed in the presence of nurse. RAULITO
--- NOTE | 2017-05-04 13:26 | PN ---
DATE OF SERVICE: 05/03/17 SUBJECTIVE: 82 year old white male was hospitalized in the swing bed with left clavicular fracture, pacemaker placement and bleeding from it covering practically 1/3 of the upper part of the chest solid ecchymosis. The patient's was confused, demented and required antipsychotic. Now the patient is cool and calm at times confused but he is up and about with the walker. According to his kids the patient's condition has improved remarkably but the patient has a long way to go. He walking with the walker and the appetite has improved. The patient originally agreed to go to the Group Home but he declined and the family also agreeable to try it out at home. PHYSICAL EXAMINATION: BLOOD PRESSURE: Blood pressure 105/68. HEENT: Head normocephalic, atraumatic. Eyes: Extraocular muscles are intact. Pupils are equal, round and reactive to light and accommodation. Ears: No lesions. Nose appeared normal. Throat: No exudate or erythema. NECK: Supple. No JVD, no carotid bruit. No lymphadenopathy or thyromegaly. LUNGS: Clear to auscultation. Percussion note normal. Chest symmetrical. HEART: S1, S2, no S3. No murmurs. No cyanosis or clubbing. No ascites. Pulses: Dorsalis pedis and posterior tibial pulses +1 to +2 both sides. ABDOMEN: Soft. Nontender. Bowel sounds active. No CVA tenderness. No mass felt. EXTREMITIES: No edema. Full range of motion of all extremities, equal. NEUROLOGIC: No focal deficit. Cranial nerves II through XII are grossly intact. No headache, no double vision or headache. SKIN: Not dry. Intact. Turgor - normal. LYMPHATIC: No palpable lymph nodes/no lymphedema. MUSCULOSKELETAL: Normal joints with no swelling. Muscle tone is normal. The patient's other medical conditions are stable and his kidney function 1.3, creatinine with BUN 34. Hgb 10 with hct 30, WBC 9,600 with normal differential, T4 TSH normal. His INR is 2.07. CONDITION: Stable TIME SPENT: More than 30 minutes. Plan and coordination of the patient's care discussed in the presence of nurse. RAULITO
--- NOTE | 2017-05-04 14:09 | DS ---
DATE OF SERVICE: 05/03/17 FINAL DIAGNOSIS: 1. 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 TENA) 2. CLOSED LEFT CLAVICLE FRACTURE - STERNAL END STATUS POST FALL AT HOME HISTORY OF: 3. CVA WITH RIGHT HEMIPARESIS 4. ABDOMINAL AORTIC ANEURYSM, 2016 5. CORONARY ARTERY DISEASE 6. HYPERTENSION 7. DYSLIPIDEMIA 8. HYPOTHYROIDISM 9. OSTEOARTHRITIS 10. DEGENERATIVE DISC DISEASE OF THE SPINE 11. DEMENTIA SURGICAL HISTORY: 12. CATARACT SURGERY, 2009 13. TONSILLECTOMY, DATE UNKNOWN (IN CHILDHOOD) 14. CABG, 1985 15. CAROTID ENDARTERECTOMY, 1988 16. HIATAL HERNIA REPAIR DISCHARGE INSTRUCTIONS: Followup appointments: Return in one week to see Dr. Aponte. Call to schedule followup appointment. Dr. Hunt, Orthopaedist, call to schedule your appointment. Dr. Tena-pacemaker on 05/17/17 at 10:45 a.m. MEDICATIONS AT DISCHARGE: Coumadin 4 mg p.o. daily Aspirin 81 mg p.o. daily with meal Welchol 1,250 mg p.o. b.i.d. Ultram 50 mg p.o. q.4-6h p.r.n. Tirosint 75 mcg p.o. daily Florastor 250 mg p.o. b.i.d. Simvastatin 40 mg one tablet p.o. daily Guaifenesin 200 mg p.o. q4-6h p.r.n. Bumetanide 1 mg p.o. daily Tylenol 650 mg p.o. q.6h Flomax 0.4 mg p.o. daily Protopic one application TP b.i.d. [place] Nasal [place] STEPHEN p.r.n. Clobetasol Propionate 60 gm TP daily NEW PRESCRIPTIONS: do not take your Losartan Potassium (Cozaar) note the dose change in your Lopressor to 25 mg by mouth twice daily (was 50 mg) No new medications DIET INSTRUCTIONS: As tolerated ACTIVITY: Get plenty of rest at home. Gradually increase your activity as tolerated. Keep your feet and legs elevated as frequent as possible. Follow Physical Therapy/ Occupational Therapy advice SMOKING: Former smoker, none now. DISEASE SPECIFIC EDUCATION: Clavicle fracture Pacemaker Home medications Medication changes Followup Home Health Physical/Occupational Therapy in the home HOSPITAL COURSE: The patient was admitted as a swing bed patient as a transfer from [facility]. He went to the ER at [facility] after fall at home. It was found that he had a fracture left clavicle, significant upper body bruising. During his hospital stay at [facility], it was also found that he was having significant bradycardia and underwent pacemaker placement. He was then transferred to [place] for rehabilitation. Over the course of the past month, during his hospital stay, we have experienced multiple problems including anemia, febrile illness, hypotension and slow physical therapy progression. He started physical therapy as soon as he was admitted. He was making good progress but experiencing some pain and dizziness. He has poor posture with a walker. He is bent over. After about 10 days with us, he developed fever for which his chest x-ray was negative. He was started on IV antibiotics of Rocephin and Vancomycin. UA was normal. There was no source of fever found. Blood cultures were negative. Incision site from his pacemaker has been healing well with no signs of infection. His bruising was slow to improve. At about the 14th day, he experienced some acute confusion. Head CT was done which showed no acute changes. After this and finishing the course of ten days of antibiotics, he has since remained afebrile and oriented. He has slowly continued to do physical therapy. The patient is still experiencing some weakness. He has healing of the left clavicle fracture with callus formation which is already starting to resolve. His pain is controlled and has been for the past week or so. He has been eating well 100% for the past several days. His hemoglobin has remained stable for the past week. He has been on Coumadin 4 mg for atrial fibrillation during his hospital stay. His INR has been steady. The patient and his refused further ortho followup with Dr. Hunt and stated that they felt that they did not want to transport him and get him in and out of the car and that nothing would be done. He wore his sling for about the first two weeks and then has since stopped. He is now able to get up and walk with a walker. He still experiences some weakness. He has not had any orthostatic hypotension within the past week. He has not been confused. He refuses to go to the [place] [facility]. After a long discussion with the family they decided that they will hire an manufacturing maintenance technician by the name of Howard. He is going to come to the house. The patient has agreed to have occupational and physical therapy come to his home. Home health nurse will also come to his home. A rolling walker along with a wheelchair and gait belt have been provided to him. We will follow up with him in the office early next week and he is to continue all of his home medications. He is discharged in stable condition. Vital signs today: Temperature 97, heart rate 85, respirations 16, BP 111/65, pulse ox 96, INR 2. TIME SPENT: More than 60 minutes. RAULITO
== END 2017-05-03 13:35 | disposition home or self-care (01) | DRG 560 ==
LOC: MEDSURG B 18:06
PROVIDERS: ADMIT Internal Medicine; ATTEND Internal Medicine
DX: S42.018D Nondisplaced fracture of sternal end of left clavicle, subsequent encounter for fracture with routine healing (principal); Z45.018 Encounter for adjustment and management of other part of cardiac pacemaker; I69.351 Hemiplegia and hemiparesis following cerebral infarction affecting right dominant side; N39.0 Urinary tract infection, site not specified; I49.5 Sick sinus syndrome; R55 Syncope and collapse; I10 Essential (primary) hypertension; E03.9 Hypothyroidism, unspecified; R45.1 Restlessness and agitation; F03.90 Unspecified dementia, unspecified severity, without behavioral disturbance, psychotic disturbance, mood disturbance, and anxiety; F28 Other psychotic disorder not due to a substance or known physiological condition; D64.9 Anemia, unspecified; I25.10 Atherosclerotic heart disease of native coronary artery without angina pectoris; I12.9 Hypertensive chronic kidney disease with stage 1 through stage 4 chronic kidney disease, or unspecified chronic kidney disease; N18.9 Chronic kidney disease, unspecified; E78.5 Hyperlipidemia, unspecified; M19.90 Unspecified osteoarthritis, unspecified site; M51.36 Other intervertebral disc degeneration, lumbar region; R26.89 Other abnormalities of gait and mobility; I65.29 Occlusion and stenosis of unspecified carotid artery; W19.XXXD Unspecified fall, subsequent encounter; R50.9 Fever, unspecified; R35.0 Frequency of micturition; R39.89 Other symptoms and signs involving the genitourinary system; I95.9 Hypotension, unspecified; F32.9 Major depressive disorder, single episode, unspecified; Z79.01 Long term (current) use of anticoagulants; Z79.899 Other long term (current) drug therapy
CPT/HCPCS: 36415; 80053; 81001; 82272; 84439; 84443; 85025; 85610; 87040; 87081; 87086; 93005; 93010; 97802; 99306; 99307; 99308; 99316

== ENCOUNTER 2017-05-29 13:23 | Outpatient (CLI) | payer OTHER | END 2017-05-29 13:24 | disposition home or self-care (01) | LOC: AMBL 13:23 | DX: R53.1 Weakness (principal); W06.XXXA Fall from bed, initial encounter ==

== ENCOUNTER 2017-07-21 19:25 | Outpatient (CLI) | END 2017-07-21 19:26 | disposition home or self-care (01) | LOC: AMBL 19:25 | PROVIDERS: ATTEND Family Medicine | DX: R53.1 Weakness (principal) ==

== ENCOUNTER 2018-01-01 16:36 | Emergency (ER) ==
[2018-01-01 16:48] VITALS: TEMP 97.4; BMI 29.7
--- NOTE | 2018-01-01 17:52 | ED.PDOC ---
General ED Provider: Dr. JIGNA BRICEÑO Chief Complaint: Fall Stated Complaint: Fell in [facility] Parking lot , sustaing contusion, abrasion ot lt side of forehead and strained low back. Stated initially did not experience back or costovertebral discomfort. States later this afternoon started his pain became fairly uncomfortable and decided to seek assistance. Denies LOC; Denies dyspnea or cough. Denies Dyspnea Time Seen by Physician: 17:25 Mode of Arrival: Ambulance Information Source: Patient, Family Exam Limitations: No limitations Primary Care Provider: MICHELE DOWELL Nursing and Triage Documentation Reviewed and Agree: Yes Reviewed sepsis parameters & appropriate labs ordered?: Yes System Inflammatory Response Syndrome: Not Applicable Sepsis Protocol: For patient's 13 years and over: Temp is 96.8 and below OR 101 and greater Pulse >90 BPM Resp >20/minute Acutely Altered Mental Status Are patient's symptoms suggestive of a new infection, such as: -Pneumonia -Skin, Soft Tissue -Endocarditis -UTI -Bone, Joint Infection -Implantable Device -Acute Abdominal Infection -Wound Infection -Meningitis -Blood Stream Catheter Infection -Unknown System Inflammatory Response Syndrome: Not Applicable Trauma/Injury Complaint Exam - Facial Injury Complaint/Exam Location of Pain: Reports: Left, Forehead Mechanism of Injury: Reports: Trauma Symptoms Are: Still present Onset of Pain: Reports: Immediate Initial Severity: Moderate Current Severity: Mild Location: Reports: Discrete (lateral forehead) Character: Reports: Dull, Aching Alleviating: Reports: None Aggravating: Reports: Movement Associated Signs and Symptoms: Reports: Swelling, Redness, Bruising Differential Diagnoses: Contusion, Fracture - Truncal Trauma Complaint/Exam Location of Pain: Reports: Right, Left, Upper, Lower, Flank Symptoms Are: Still present Onset of Pain: Reports: Immediate, Hours Initial Severity: Mild Current Severity: Moderate Mechanism: Reports: Blunt trauma, Twisted Aggravating: Reports: Movement, Deep breathing Alleviating: Reports: Rest Associated Signs and Symptoms: Reports: Chest pain Vertebral Tenderness Present: Yes Vertebral Deformity Present: No Trachial Deviation Present: No JVD Present: No Crepitus Present: No Diminished Breath Sounds: Yes (lt basilar region ) Skin Findings: Present: Contusion Differential Diagnoses: Rib Fracture, Thoracic Strain, Lumbar Strain Review of Systems - Review Of Systems Constitutional: Reports: No symptoms Eyes: Reports: No symptoms Ears, Nose, Mouth, Throat: Reports: No symptoms Respiratory: Reports: No symptoms Cardiac: Reports: No symptoms GI: Reports: No symptoms : Reports: No symptoms Musculoskeletal: Reports: Back pain, Joint pain, Muscle pain, Muscle stiffness Skin: Reports: Bruising Neurological: Reports: No symptoms Endocrine: Reports: No symptoms Hematologic/Lymphatic: Reports: No symptoms All Other Systems: Reviewed and Negative Past Medical History - Past Medical History Previously Healthy: Yes Endocrine: Reports: None Cardiovascular: Reports: CAD, [place], Hypertension Respiratory: Reports: None Hematological: Reports: None Gastrointestinal: Reports: None Genitourinary: Reports: None Neuro/Psych: Reports: None Musculoskeletal: Reports: None Cancer: Reports: None - Surgical History General Surgical History: Reports: CABG, Other - Family History Family History: Reports: Unknown - Social History Smoking Status: Former smoker Hx Substance Use: No Alcohol Screening: Occasionally - Immunizations Tetanus Shot up to Date: No Physical Exam - Physical Exam Appearance: Well-appearing, No pain distress, Well-nourished Ill-appearing: None Pain Distress: Mild Eyes: JONES, EOMI, Conjunctiva clear ENT: Ears normal, Nose normal, Oropharynx normal Respiratory: Airway patent, Breath sounds clear (No crackles, wheezes or congestion ), Breath sounds equal, Respirations nonlabored Cardiovascular: RRR, Pulses normal, No rub, No murmur GI/: Soft, Nontender, No masses, Bowel sounds normal, No Organomegaly Musculoskeletal: Normal strength, ROM intact, No edema, No calf tenderness, Limited ROM (Tenderness posterior thoracic region into lumbar spine/Lt flank- costal verbral region) Skin: Warm, Dry, Normal color Neurological: Sensation intact, Motor intact, Reflexes intact, Cranial nerves intact, Alert, Oriented Psychiatric: Affect appropriate, Mood appropriate Interpretation - Radiology Interpretation Radiology Interpretation By: Radiologist Exam Interpreted: CT Scan (Head, Thoracic and Lumbar spine) Xray Comments: Fracture Lt 10th Rib Re-Evaluation - Re-Evaluation Time of Re-Evaluation: 18:50 (O2 Sat 97 %) Status: Improved Vital Signs Stable: Yes Pain Level: 310 Appearance: NAD Lungs: Clear Skin: Warm and Dry Neuro: Alert and Oriented X3 CV: RRR Additional Comments: Instructed patient on breathing exercises and periodically take deep breath Critical Care Note - Critical Care Note Total Time (mins): 30 Course - Course Orders, Labs, Meds: Lab Review 01/01/18 18:23 Urine Color Yellow Urine Clarity Clear Urine pH 5.0 Ur Specific Witter 1.015 Urine Protein Negative Urine Glucose (UA) Negative Urine Ketones Negative Urine Blood 1+ Urine Nitrite Negative Urine Bilirubin Negative Urine Urobilinogen 0.2 Ur Leukocyte Esterase 1+ Urine Microscopic RBC 0-2 Urine Microscopic WBC 2-5 Ur Squamous Epith Cells Not present Urine Bacteria Trace Hyaline Casts 0-2 Orders Category Date Time Status UA [URINALYSIS C & S IF INDICATED] Stat LAB 01/01/18 18:[address] HEAD W/O CONTRAST Stat RADS 01/01/18 17:[address] LUMBAR SPINE W/O CONTRAST Stat RADS 01/01/18 17:[address] THORACIC SPINE W/O CONTRAST Stat RADS 01/01/18 17:46 Completed RIBS, BILATERAL MIN 3V Stat RADS 01/01/18 17:49 Completed Vital Signs: Temp Pulse Resp BP Pulse Ox 01/01/18 16:37 97.4 F L 96 H 20 102/62 95 Departure - Departure Time of Disposition: 19:10 Disposition: HOME SELF-CARE Discharge Problem: Rib fracture, Thoracic myofascial strain, Atelectasis of left lung, Abdominal aneurysm Instructions: Rib Fracture (ED), Atelectasis (ED), Thoracic Back Strain (ED) Condition: Good Pt referred to PMD for follow-up: Yes (Dr Dowell in next 5 days) IPMP verified?: No Additional Instructions: Take tylenol or advil for relief of pain Deep breathing exercise as directed to prevent hypoventilation and develop progressive lung atelectasis and pneumonia Take meds as directed. Allergies/Adverse Reactions: Allergies niacin Adverse Reaction (Verified 04/05/17 18:34) TAPE Adverse Reaction (Uncoded 04/05/17 18:34) Home Medications: Ambulatory Orders Aspirin [Aspirin EC] 81 mg PO DAILYWM 04/03/14 Colesevelam HCl [Welchol] 1,250 mg PO BID 04/03/14 Levothyroxine Sodium [Tirosint] 75 mcg PO DAILY 04/03/14 Tramadol HCl [Ultram] 50 mg PO Q4-6H PRN 04/03/14 Warfarin Sodium [Coumadin] 2 mg PO DAILY 04/03/14 Guaifenesin 200 mg PO Q4-6H PRN 11/18/15 Simvastatin 1 tab PO DAILY 11/18/15 Bumetanide 1 mg PO DAILY 01/07/17 Acetaminophen [Tylenol] 650 mg PO Q6H 04/05/17 Sodium Chloride [[place] Nasal [place]] 1 spray STEPHEN PRN PRN 04/05/17 Tamsulosin HCl [Flomax] 0.4 mg PO DAILY 04/05/17 Clobetasol Propionate 60 gm TP DAILY 04/09/17 Meclizine HCl [Antivert] 25 mg PO TID PRN #30 tablet 05/03/17 Metoprolol Tartrate [Lopressor] 12.5 mg PO BID 01/01/18 Potassium Chloride [Micro-K Cap] 10 meq PO DAILY 01/01/18 Disposition Discussed With: Patient, Family (O2 sat 97 % at time of discharge/ )
--- NOTE | 2018-01-01 18:41 | CT ---
EXAM: CT scan of the lumbar spine without contrast HISTORY: Pain, fall TECHNIQUE: Helical imaging of the lumbar spine was performed without contrast. Sagittal and coronal reconstructions and axial images were provided for interpretation. FINDINGS: There is no evidence of acute compression fracture. The paraspinal soft tissues are tyler l. No acute fractures are seen within the sacrum. The spinous processes are intact. There is a nor mal alignment of the facet joints. There is fusiform aneurysmal dilatation of the infrarenal abdomina l aorta measuring 4.1 cm AP, 3.6 cm transverse. Small nonobstructing calculi are seen within the grecia erma of the kidneys. IMPRESSION: No evidence of acute fracture seen within the lumbar spine. Fusiform aneurysmal dilatation of the infrarenal abdominal aorta measuring up to 4.1 cm. Continued f ollow-up evaluation should be performed.
--- NOTE | 2018-01-01 18:42 | DI ---
Exam: 10 x-rays of the bilateral ribs. Reason for exam: Rib cage pain left greater than right. Comparison: CT chest performed 04/17/2017. FINDINGS: Operative changes are seen after midline sternotomy and implanted intracardiac device place ment. Minimally displaced fracture is seen in the left tenth rib. No pneumothorax. There is blunting of the left costophrenic angle. Impression: 1. Minimally displaced fracture of the left tenth rib. 2. Left basilar atelectasis/pneumonia. Report faxed at 1838 hours on 01/01/2018.
--- NOTE | 2018-01-01 18:49 | CT ---
EXAM: CT scan of the head without contrast HISTORY: Blunt trauma to the left forehead. TECHNIQUE: Helical imaging of the head was performed without contrast. 5 mm thin axial images and c oronal and sagittal images were provided for interpretation. FINDINGS: The lateral ventricles and cortical sulci are prominent from atrophy. Low density changes are seen throughout the supratentorial white matter. No acute hemorrhages are seen. There is no ma ss effect. The basal cisterns are patent. There is mucosal thickening seen within the left maxillar y sinus. The remainder of the paranasal sinuses are clear. The calvarium and extracranial soft tiss ues are normal. IMPRESSION: No acute intracranial abnormalities are seen. Mild to moderate cerebral atrophy. Chronic small vessel ischemic changes seen throughout the supratentorial white matter.
--- NOTE | 2018-01-01 18:49 | CT ---
EXAM: CT of the thoracic spine without contrast. HISTORY: Fall. PROCEDURE: Contiguous axial CT images of the thoracic spine without contrast with coronal and sagitt al reformats. FINDINGS: There is normal alignment of the thoracic vertebral bodies and facets. The thoracic verteb ral body heights are maintained. There is multilevel disc space narrowing. There are anterior osteo phytes at multiple levels of the thoracic spine. There is multilevel facet arthropathy. There is a nondisplaced acute fracture of the left posterior ninth rib. Impression: No evidence of fracture in the thoracic spine. Normal alignment of the thoracic spine with degenerative changes as described. Nondisplaced acute fracture of the left posterior ninth rib.
[2018-01-01 19:33] VITALS: BP 111/87
== END 2018-01-01 19:30 | disposition home or self-care (01) ==
LOC: ED 16:36
DX: S22.32XA Fracture of one rib, left side, initial encounter for closed fracture (principal); J98.11 Atelectasis; I71.4 Abdominal aortic aneurysm, without rupture; S00.83XA Contusion of other part of head, initial encounter; S00.81XA Abrasion of other part of head, initial encounter; M54.5 Low back pain; M54.6 Pain in thoracic spine; I25.810 Atherosclerosis of coronary artery bypass graft(s) without angina pectoris; I25.2 Old myocardial infarction; I10 Essential (primary) hypertension; W19.XXXA Unspecified fall, initial encounter
CPT/HCPCS: 81001; 99283

== ENCOUNTER 2018-06-13 22:17 | Emergency (ER) ==
[2018-06-13 22:28] VITALS: BP 107/66; TEMP 97; BMI 34.1
[2018-06-13] MEDS ORDERED: BOOSTRIX IM ONE (22:38)
--- NOTE | 2018-06-13 22:40 | ED.PDOC ---
General ED Provider: Dr. KRIS CAMPBELL Chief Complaint: Fall Stated Complaint: Tripped in his small bathroom hitting his head sustaining laceration to the scalp with bleeding and left eblow skin abrassions. He denies any loss of conciousness. Time Seen by Physician: 22:37 Mode of Arrival: Ambulance Information Source: Patient, Family, EMT Primary Care Provider: MICHELE DOWELL Nursing and Triage Documentation Reviewed and Agree: Yes Does patient meet sepsis criteria?: No System Inflammatory Response Syndrome: Not Applicable Sepsis Protocol: For patient's 13 years and over: Temp is 96.8 and below OR 101 and greater Pulse >90 BPM Resp >20/minute Acutely Altered Mental Status Are patient's symptoms suggestive of a new infection, such as: -Pneumonia -Skin, Soft Tissue -Endocarditis -UTI -Bone, Joint Infection -Implantable Device -Acute Abdominal Infection -Wound Infection -Meningitis -Blood Stream Catheter Infection -Unknown Trauma/Injury Complaint Exam - Head Injury Complaint/Exam Location of Pain: Reports: Right, Scalp Mechanism of Injury: Reports: Trauma Onset/Duration: just prior to arrival Symptoms Are: Still present Initial Severity: Severe Current Severity: Moderate Character: Reports: Throbbing, Pressure Aggravating: Reports: None Alleviating: Reports: None Associated Signs and Symptoms: Denies: Confusion, Memory loss, Seizure, Epistaxis, Dental malocclusion, Neck pain, Nausea, Vomiting SDH Risk Factors: Present: None Cervical Spine Injury Risk Factors: Present: None Related Surgical History: Reports: None Immobilization Removed Post Exam: No Head Injury Findings: Present: Neck pain Glascow Coma Scale (see protocol): 15 Focal Weakness: Present: None Focal Sensory Loss: Present: None Gait: Normal Gag Reflex Present: No Finger to Nose: Normal Rhomberg Test Positive: No Babinski Sign: Negative Right, Negative Left Head Picture: 1 - 3 cm laceration Differential Diagnoses: Arthritis, Sprain, Strain, Trauma, Other (laceration ) Review of Systems - Review Of Systems Constitutional: Reports: No symptoms Eyes: Reports: No symptoms Ears, Nose, Mouth, Throat: Reports: No symptoms Respiratory: Reports: No symptoms Cardiac: Reports: No symptoms GI: Reports: No symptoms : Reports: No symptoms Musculoskeletal: Reports: Joint pain, Muscle pain, Muscle stiffness, Neck pain Skin: Reports: No symptoms Neurological: Reports: Headache Endocrine: Reports: No symptoms Hematologic/Lymphatic: Reports: No symptoms All Other Systems: Reviewed and Negative Past Medical History - Past Medical History Previously Healthy: Yes Endocrine: Reports: None Cardiovascular: Reports: CAD, [place], Hypertension Respiratory: Reports: None Hematological: Reports: None Gastrointestinal: Reports: None Genitourinary: Reports: None Neuro/Psych: Reports: None Musculoskeletal: Reports: None Cancer: Reports: None - Surgical History General Surgical History: Reports: CABG, Other - Family History Family History: Reports: Unknown - Social History Smoking Status: Former smoker Hx Substance Use: No Alcohol Screening: Occasionally - Immunizations Tetanus Shot up to Date: No Physical Exam - Physical Exam Appearance: Well-appearing Pain Distress: Mild Eyes: JONES, EOMI, Conjunctiva clear ENT: Ears normal, Nose normal, Oropharynx normal Neck: Supple Respiratory: Airway patent, Breath sounds clear, Breath sounds equal, Respirations nonlabored Cardiovascular: RRR, Pulses normal, No rub, No murmur Musculoskeletal: Normal strength, ROM intact Skin: Warm, Dry Neurological: Alert, Oriented Interpretation - Radiology Interpretation Radiology Interpretation By: Radiologist Radiology Results: Negative Exam Interpreted: CT Scan (head ) Procedures - Laceration/Wound Repair scalp Wound Description: Linear Wound Length (cm): 3 Wound Width: 0.1 Wound Depth: 0.4 Wound Explored: Clean Wound Irrigated: No Wound Prep: Hibiclens Wound Repaired With: Garcia Number of Sutures: 8 left elbow Wound Description: Irregular, Flap, Skin tear Wound Length (cm): 3 Wound Width: 2 Wound Depth: .01 Wound Explored: Clean Wound Irrigated: No Wound Prep: Hibiclens Wound Repaired With: Steri-strips Sterile Dressing Applied?: Yes Splint Applied?: No Sling Applied?: No Progress: Tolerated well Critical Care Note - Critical Care Note Total Time (mins): 0 Course - Course Orders, Labs, Meds: Orders Category Date Time Status Diphth,Pertuss(Acell),Tet Vac [Boostrix] MEDS 06/13/18 22:38 Discontinued 0.5 ml IM .ONCE ONE CT CERVICAL SPINE W/O CONTRAST Stat RADS 06/13/18 22:[address] HEAD W/O CONTRAST Stat RADS 06/13/18 22:35 Completed Medications Discontinued Medications Generic Name Dose Route Start Last Admin Trade Name Freq PRN Reason Stop Dose Admin Diphtheria/Pertussis/Tetanus Vacc 0.5 ml 06/13/18 22:38 06/13/18 22:53 Boostrix IM 06/13/18 22:39 0.5 ml .ONCE ONE Administration Vital Signs: Temp Pulse Resp BP Pulse Ox 06/13/18 22:18 97 F L 88 20 107/66 95 Departure - Departure Time of Disposition: 23:56 Disposition: HOME SELF-CARE Discharge Problem: Skin abrasion Laceration of head Qualifiers: Encounter type: initial encounter Location of open wound of head: scalp Foreign body presence: without foreign body Qualified Code(s): S01.01XA - Laceration without foreign body of scalp, initial encounter Instructions: Staple Care (ED), Steristrips (ED) Condition: Stable Pt referred to PMD for follow-up: Yes IPMP verified?: No Additional Instructions: Follow up with PCP in 7 days to have sutures removed. Allergies/Adverse Reactions: Allergies niacin Adverse Reaction (Verified 06/13/18 22:28) TAPE Adverse Reaction (Uncoded 06/13/18 22:28) Home Medications: Ambulatory Orders Aspirin [Aspirin EC] 81 mg PO DAILYWM 04/03/14 Colesevelam HCl [Welchol] 1,250 mg PO BID 04/03/14 Levothyroxine Sodium [Tirosint] 75 mcg PO DAILY 04/03/14 Warfarin Sodium [Coumadin] 4 mg PO DAILY 04/03/14 Simvastatin 80 mg PO DAILY 11/18/15 Bumetanide 1 mg PO DAILY 01/07/17 Acetaminophen [Tylenol] 650 mg PO Q6H 04/05/17 Sodium Chloride [[place] Nasal [place]] 1 spray STEPHEN PRN PRN 04/05/17 Tamsulosin HCl [Flomax] 0.4 mg PO DAILY 04/05/17 Meclizine HCl [Antivert] 25 mg PO TID PRN #30 tablet 05/03/17 Metoprolol Tartrate [Lopressor] 12.5 mg PO BID 01/01/18 Potassium Chloride [Micro-K Cap] 10 meq PO DAILY 01/01/18 Transfer Form Completed: Yes
--- NOTE | 2018-06-13 23:33 | CT ---
EXAM: CT head without contrast 06/13/2018. Sagittal and coronal reformatted images obtained HISTORY: Head injury with laceration COMPARISON: 01/01/2018 FINDINGS: There is no evidence of intracranial hemorrhage. The midline is maintained. There is no h ydrocephalus. Diffuse generalized atrophy and chronic small vessel ischemic changes. Bilateral lacu cody infarcts. These findings appear similar to the prior study. No cerebellar tonsillar ectopia. E valuation of the calvarium shows no fracture. The mastoid air cells are normally pneumatized. IMPRESSION: No acute intracranial abnormality. Superficial scalp laceration.
--- NOTE | 2018-06-13 23:36 | CT ---
EXAM: CT cervical spine without intravenous contrast 06/13/2018. Sagittal and coronal reformatted i mages obtained HISTORY: Neck pain. Fall COMPARISON: 01/06/2017 FINDINGS: Anatomic alignment is stable. Vertebral bodies appear intact without evidence of fracture . Diffuse ossification along the anterior aspect of the cervical spine is again identified. This is most prominent at the levels C3-C7. The facet joints align normally. Multilevel facet arthropathy. The prevertebral soft tissues appear within normal limits. There is no acute fracture or subluxation at any level. IMPRESSION: No acute post traumatic osseous abnormality of the cervical spine. Chronic findings as above.
== END 2018-06-13 23:59 | disposition home or self-care (01) ==
LOC: ED 22:17
DX: S01.01XA Laceration without foreign body of scalp, initial encounter (principal); S50.312A Abrasion of left elbow, initial encounter; M54.2 Cervicalgia; R51 Headache; W01.0XXA Fall on same level from slipping, tripping and stumbling without subsequent striking against object, initial encounter
CPT/HCPCS: 90715; 99282

== ENCOUNTER 2018-09-20 12:55 | Emergency (ER) | payer OTHER ==
[2018-09-20 13:12] VITALS: BP 123/78; TEMP 97.3; BMI 28.8
--- NOTE | 2018-09-20 13:32 | ED.PDOC ---
General ED Provider: Dr. SHAZIA SMITH Chief Complaint: Wound Check Stated Complaint: PRESSURE SORES VS YEAST INFECTION Time Seen by Physician: 13:00 Mode of Arrival: Walk-In Information Source: Patient, Other Exam Limitations: No limitations Primary Care Provider: MICHELE DOWELL Nursing and Triage Documentation Reviewed and Agree: Yes Does patient meet sepsis criteria?: No System Inflammatory Response Syndrome: Not Applicable Sepsis Protocol: For patient's 13 years and over: Temp is 96.8 and below OR 101 and greater Pulse >90 BPM Resp >20/minute Acutely Altered Mental Status Are patient's symptoms suggestive of a new infection, such as: -Pneumonia -Skin, Soft Tissue -Endocarditis -UTI -Bone, Joint Infection -Implantable Device -Acute Abdominal Infection -Wound Infection -Meningitis -Blood Stream Catheter Infection -Unknown Skin Complaint Exam - Skin/Soft Tissue Complaint/Exam Onset/Duration: SEE PHOTOS ONSET UNCERTAIN DOES NOT EXTEND IN BETWEEN THE BUTTOCKS Symptoms Are: Still present Timing: Constant Initial Severity: Mild Current Severity: Mild Character: Reports: Redness Aggravating: Reports: None Alleviating: Reports: None Associated Signs and Symptoms: Denies: Fever, Chills, Itching, Drainage, Bruising, Tenderness, Red streaks, Joint swelling Related History: Reports: Similar episode Related Surgical History: Reports: None Recent Exposure to Others w/Similar Symptoms: No Skin Findings: Present: Other (YEAST ) Joint Tenderness Present: No Review of Systems - Review Of Systems Constitutional: Reports: No symptoms Eyes: Reports: No symptoms Ears, Nose, Mouth, Throat: Reports: No symptoms Respiratory: Reports: No symptoms Cardiac: Reports: No symptoms GI: Reports: No symptoms : Reports: No symptoms Musculoskeletal: Reports: No symptoms Skin: Reports: Rash (SEE PHOTOS) Neurological: Reports: No symptoms Endocrine: Reports: No symptoms Hematologic/Lymphatic: Reports: No symptoms All Other Systems: Reviewed and Negative Past Medical History - Past Medical History Previously Healthy: Yes Endocrine: Reports: None Cardiovascular: Reports: CAD, [place], Hypertension Respiratory: Reports: None Hematological: Reports: None Gastrointestinal: Reports: None Genitourinary: Reports: None Neuro/Psych: Reports: None Musculoskeletal: Reports: None Cancer: Reports: None - Surgical History General Surgical History: Reports: CABG, Other - Family History Family History: Reports: Unknown - Social History Smoking Status: Former smoker Hx Substance Use: No Alcohol Screening: Occasionally Physical Exam - Physical Exam Appearance: Well-appearing, No pain distress, Well-nourished Eyes: JONES, EOMI, Conjunctiva clear ENT: Ears normal, Nose normal, Oropharynx normal Respiratory: Airway patent, Breath sounds clear, Breath sounds equal, Respirations nonlabored Cardiovascular: RRR, Pulses normal, No rub, No murmur GI/: Soft, Nontender, No masses, Bowel sounds normal, No Organomegaly Musculoskeletal: Normal strength, ROM intact, No edema, No calf tenderness Skin: Warm, Dry (SEE PHOTOS) Neurological: Sensation intact, Motor intact, Reflexes intact, Cranial nerves intact, Alert, Oriented Psychiatric: Affect appropriate, Mood appropriate Critical Care Note - Critical Care Note Total Time (mins): 0 Course - Course Vital Signs: Temp Pulse Resp BP Pulse Ox 09/20/18 12:56 97.3 F L 83 20 123/78 93 L Departure - Departure Time of Disposition: 13:33 Disposition: HOME SELF-CARE Discharge Problem: Candidiasis, intertrigo Instructions: Yeast Infection (ED), How to Turn a Person in Bed (DC), Pressure Injury (ED), Acute Wounds (ED), Chronic Wounds (ED) Condition: Good Pt referred to PMD for follow-up: Yes IPMP verified?: No Additional Instructions: Please call your Family Physician as soon as possible to schedule a follow-up appointment. Allergies/Adverse Reactions: Allergies niacin Adverse Reaction (Verified 06/13/18 22:28) TAPE Adverse Reaction (Uncoded 06/13/18 22:28) Home Medications: Ambulatory Orders Aspirin [Aspirin EC] 81 mg PO DAILYWM 04/03/14 Colesevelam HCl [Welchol] 1,250 mg PO BID 04/03/14 Levothyroxine Sodium [Tirosint] 75 mcg PO DAILY 04/03/14 Warfarin Sodium [Coumadin] 4 mg PO DAILY 04/03/14 Simvastatin 80 mg PO DAILY 11/18/15 Bumetanide 1 mg PO DAILY 01/07/17 Acetaminophen [Tylenol] 650 mg PO Q6H 04/05/17 Sodium Chloride [[place] Nasal [place]] 1 spray STEPHEN PRN PRN 04/05/17 Tamsulosin HCl [Flomax] 0.4 mg PO DAILY 04/05/17 Meclizine HCl [Antivert] 25 mg PO TID PRN #30 tablet 05/03/17 Metoprolol Tartrate [Lopressor] 12.5 mg PO BID 01/01/18 Potassium Chloride [Micro-K Cap] 10 meq PO DAILY 01/01/18 Clotrimazole/Betamethasone Dip [Lotrisone 45 gm] 1 applic TP BID 09/20/18
== END 2018-09-20 14:13 | disposition home or self-care (01) ==
LOC: ED 12:55
DX: B37.2 Candidiasis of skin and nail (principal)
CPT/HCPCS: 99282

== ENCOUNTER 2018-11-04 12:41 | Emergency (ER) | payer OTHER ==
[2018-11-04 13:09] VITALS: BP 111/66; TEMP 97.1; BMI 28.1
--- NOTE | 2018-11-04 14:13 | CT ---
EXAM: CT of the head without contrast. History: Head trauma, left eye pain. Comparison: Head CT 06/13/2018 Technique: Multiplanar CT images through the head were obtained without the administration of IV con trast Findings: The visualized paranasal sinuses and mastoid air cells are clear in general. No acute matt varial abnormalities. Intracranially there is stable atrophy. No dominant mass or midline shift. No acute intracranial he morrhage or abnormal extraaxial fluid collections. No change in the periventricular and subcortical white matter hypodensities and old lacunar infarctions. Impression: No acute intracranial process. Stable chronic brain changes.
--- NOTE | 2018-11-04 14:17 | CT ---
EXAM: CT of the chest without contrast History: Chest trauma. Comparison: Chest CT 04/17/2017, CT abdomen pelvis 11/04/2018 Technique: Multiplanar CT images through the chest were obtained without the administration of IV co ntrast Findings: Heart size is upper limits of normal. No pericardial effusion. Coronary calcifications. No thoracic aortic aneurysm. No pathologically enlarged thoracic lymph nodes. No consolidation. N o pleural fluid and no pneumothorax. No suspicious lung masses or lung nodules. Dependent atelectas is and scattered areas of subsegmental atelectasis. For details in the upper abdomen, please see dedicated CT abdomen pelvis done on the same day. Colmenares otomy wires. No acute osseous abnormalities. There is old nonunited fracture of the medial left cla vicle. Degenerative changes of the bilateral glenohumeral joints. Impression: No acute intrathoracic process.
--- NOTE | 2018-11-04 14:19 | CT ---
EXAM: CT of the cervical spine without contrast History: Head and neck trauma. Comparison: Cervical spine CT 06/13/2018 Technique: Multiplanar CT images through the cervical spine were obtained without the administration of IV contrast Findings: The upper lungs are clear. The visualized airway remains patent. Old nonunited fracture of the medial left clavicle. Atherosclerotic vascular calcifications. No acute fracture or subluxation of the cervical spine. No prevertebral soft tissue swelling. Prede ntal space is not widened. No change in the multilevel disc space narrowing with large anterior oste ophytes. No change in the multilevel bilateral bony neural foraminal narrowing secondary to uncovert ebral and facet hypertrophy. Impression: No acute osseous abnormality of the cervical spine. No change compared to the prior jasmin dy.
--- NOTE | 2018-11-04 14:24 | CT ---
EXAM: CT ABDOMEN AND PELVIS HISTORY: Fall, pain TECHNIQUE: CT abdomen and pelvis without intravenous contrast. Images were reconstructed using 5 mm section thickness. Reformations were prepared. COMPARISON: 11/18/2015 FINDINGS: Diagnostic limitations may exist without including contrast enhanced images. A few scattered calcifi cations are in the liver and spleen suggesting old granulomatous disease. The gallbladder is not see n. Pancreas and adrenal glands appear normal. Severe atherosclerotic disease. Calcifications in th e central kidneys are likely vascular in nature. Accessory renal arteries are suggested. No hydrone phrosis or evidence of ureteral obstruction. There is fusiform aneurysmal caliber of the infrarenal aorta which is stable at 4 cm (sagittal dimension). The stomach and appendix are normal. Nonobstructive bowel gas pattern. Severe distal colon divertic ulosis is present. The prostate is at least mildly enlarged. Urinary bladder is unremarkable. Ther e is no ascites. No ventral abdominal wall hernia. Bones reveal bulky bridging osteophytic spurring of the spine and moderate arthropathy of the hips. The bones appear demineralized. No acute fracture is seen at the level of the abdomen or pelvis. No pneumoperitoneum. See also same day CT thorax report. IMPRESSION: 1. No acute injuries at the level of the abdomen and pelvis identified. 2. Atherosclerosis. 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 3. Diverticulosis of the colon. 4. Prostate enlargement.
--- NOTE | 2018-11-04 14:41 | ED.PDOC ---
General ED Provider: Dr. SHAZIA SMITH Chief Complaint: Fall Stated Complaint: FALL Time Seen by Physician: 13:00 (SEE PHOTOS SUBMITTED ) Information Source: Patient Exam Limitations: No limitations Primary Care Provider: MICHELE DOWELL Nursing and Triage Documentation Reviewed and Agree: Yes Does patient meet sepsis criteria?: No If yes, has appropriate treatment been initiated?: No System Inflammatory Response Syndrome: Not Applicable Sepsis Protocol: For patient's 13 years and over: Temp is 96.8 and below OR 101 and greater Pulse >90 BPM Resp >20/minute Acutely Altered Mental Status Are patient's symptoms suggestive of a new infection, such as: -Pneumonia -Skin, Soft Tissue -Endocarditis -UTI -Bone, Joint Infection -Implantable Device -Acute Abdominal Infection -Wound Infection -Meningitis -Blood Stream Catheter Infection -Unknown Trauma/Injury Complaint Exam - Trauma Complaint/Exam Location of Pain or Injury: Reports: Head, Neck, Chest, Abdomen Mechanism of Injury: Reports: Fall Onset/Duration: 1 DAY AGO Symptoms Are: Resolved Timing of Treatment: Hours Initial Severity: Mild Current Severity: None Character: Reports: Dull Aggravating: Reports: Movement (OF THE CHEST) Alleviating: Reports: None Associated Signs and Symptoms: Reports: Bruising (ABRASION RIGHT LOWER LEG SEE PHOTOS). Denies: LOC, Confusion, Memory loss, Lethargy, Vomiting, Bleeding, Swelling, Extremity disuse, Painful respiration, Hoarseness, Dysphagia, Hemoptysis, Significant blood loss Penetrating Injury Risk Factors: Reports: None Related Surgical History: Reports: None Nexus Low Risk Criteria: No post-midline CS tender (CHEST WALL PAIN ), No evidence of intoxicat., No Altered LOC, No focal neuro deficit Glascow Coma Scale (see protocol): 15 Trauma Findings: Absent: [place] eyes, Hemotympanum, Nasal deformity, Neck tenderness, SubQ Air, Crepitus, Airway obstructed, Trachea displaced, Labored respirations, Decreased breath sounds, Muffled heart sounds, Weak pulses, Pelvic instability Review of Systems - Review Of Systems Constitutional: Reports: No symptoms Eyes: Reports: No symptoms Ears, Nose, Mouth, Throat: Reports: No symptoms Respiratory: Reports: No symptoms Cardiac: Reports: Other (CHEST WALL PAIN) GI: Reports: No symptoms : Reports: No symptoms Musculoskeletal: Reports: Neck pain Skin: Reports: No symptoms Neurological: Reports: Headache Endocrine: Reports: No symptoms Hematologic/Lymphatic: Reports: No symptoms All Other Systems: Reviewed and Negative Past Medical History - Past Medical History Previously Healthy: Yes Endocrine: Reports: None Cardiovascular: Reports: CAD, [place], Hypertension Respiratory: Reports: None Hematological: Reports: None Gastrointestinal: Reports: None Genitourinary: Reports: None Neuro/Psych: Reports: None Musculoskeletal: Reports: None Cancer: Reports: None - Surgical History General Surgical History: Reports: CABG, Other - Family History Family History: Reports: Unknown - Social History Smoking Status: Former smoker Hx Substance Use: No Alcohol Screening: Occasionally Physical Exam - Physical Exam Appearance: Well-appearing, No pain distress, Well-nourished Eyes: JONES, EOMI, Conjunctiva clear ENT: Ears normal, Nose normal, Oropharynx normal Respiratory: Airway patent, Breath sounds clear, Breath sounds equal, Respirations nonlabored Cardiovascular: RRR, Pulses normal, No rub, No murmur GI/: Soft, Nontender, No masses, Bowel sounds normal, No Organomegaly Musculoskeletal: Normal strength, ROM intact, No edema, No calf tenderness Skin: Warm, Dry (ABRASION RIGHT SEE PHOTOS) Neurological: Sensation intact, Motor intact, Reflexes intact, Cranial nerves intact, Alert, Oriented Psychiatric: Affect appropriate, Mood appropriate Critical Care Note - Critical Care Note Total Time (mins): 0 Course - Course Orders, Labs, Meds: Orders Category Date Time Status CT ABDOMEN/PELVIS WO CONTRAST Stat RADS 11/04/18 13:[address] CERVICAL SPINE W/O CONTRAST Stat RADS 11/04/18 13:[address] CHEST W/O CONTRAST Stat RADS 11/04/18 13:[address] HEAD W/O CONTRAST Stat RADS 11/04/18 13:00 Completed Vital Signs: Temp Pulse Resp BP Pulse Ox 11/04/18 12:57 97.1 F L 96 H 18 111/66 94 L Departure - Departure Time of Disposition: 14:42 Disposition: HOME SELF-CARE Discharge Problem: Abrasion, right lower leg, initial encounter Sprain of chest wall Qualifiers: Encounter type: initial encounter Qualified Code(s): S23.8XXA - Sprain of other specified parts of thorax, initial encounter Instructions: Abrasion (ED), Chest Wall Pain (ED), Thoracic Pain (ED) Condition: Good Pt referred to PMD for follow-up: Yes IPMP verified?: No Additional Instructions: Please call your Family Physician as soon as possible to schedule a follow-up appointment. Allergies/Adverse Reactions: Allergies niacin Adverse Reaction (Verified 11/04/18 12:56) TAPE Adverse Reaction (Uncoded 11/04/18 12:56) Home Medications: Ambulatory Orders Aspirin [Aspirin EC] 81 mg PO DAILYWM 04/03/14 Colesevelam HCl [Welchol] 1,250 mg PO BID 04/03/14 Levothyroxine Sodium [Tirosint] 75 mcg PO DAILY 04/03/14 Warfarin Sodium [Coumadin] 3 mg PO DAILY 04/03/14 Simvastatin 80 mg PO DAILY 11/18/15 Bumetanide 1 mg PO DAILY 01/07/17 Acetaminophen [Tylenol] 650 mg PO Q6H 04/05/17 Sodium Chloride [[place] Nasal [place]] 1 spray STEPHEN PRN PRN 04/05/17 Tamsulosin HCl [Flomax] 0.4 mg PO DAILY 04/05/17 Meclizine HCl [Antivert] 25 mg PO TID PRN #30 tablet 05/03/17 Metoprolol Tartrate [Lopressor] 25 mg PO BID 01/01/18 Potassium Chloride [Micro-K Cap] 10 meq PO DAILY 01/01/18 Metolazone [Zaroxolyn] 2.5 mg PO DAILY 11/04/18 Sennosides [Senna] 8.6 mg PO DAILY 11/04/18 Tacrolimus [Protopic] 60 gm TP BID 11/04/18 Disposition Discussed With: Patient
== END 2018-11-04 15:35 | disposition home or self-care (01) ==
LOC: ED 12:41
DX: R51 Headache (principal); M54.2 Cervicalgia; R07.9 Chest pain, unspecified; R10.9 Unspecified abdominal pain; S80.811A Abrasion, right lower leg, initial encounter; S23.8XXA Sprain of other specified parts of thorax, initial encounter
CPT/HCPCS: 99283